=== PATIENT | female | born 1980 | race Caucasian/White ===

== ENCOUNTER 2020-11-09 18:20 | Observation (INO) | payer OTHER, BC, MEDICAID, SELFPAY ==
[2020-11-09] VITALS (11 sets, daily range): BP systolic 127–170; BP diastolic 45–101; PULSE 82–117; RESP 16–20; TEMP 32.8–37.4; O2SAT 100; BMI 40.4
--- NOTE | 2020-11-09 19:03 | XRR_ITS ---
PROCEDURE INFORMATION: Exam: XR Chest Exam date and time: 11/09/2020 7:25 PM Age: 40 years old Clinical indication: Shortness of breath; Chest pain; Type not specified; Patient HX: Cp x 3 days; Additional info: SOB TECHNIQUE: Imaging protocol: XR of the chest Views: Frontal portable upright view of the chest. COMPARISON: No relevant prior studies available. FINDINGS: Lungs: The lungs are clear bilaterally. The pulmonary vasculature is normal. Pleural spaces: No pleural effusion. No pneumothorax. Heart/Mediastinum: A moderate hiatal hernia is present above the level of the diaphragm. The heart is normal in size and contour. Bones/joints: No acute abnormality identified. XR/XR chest 1V portable [id number] IMPRESSION: 1. Hiatal hernia. 2. No acute cardiopulmonary abnormality identified.
--- NOTE | 2020-11-09 19:05 | W.ED.SOB ---
HPI - SOB/Dyspnea General: Chief Complaint: Shortness of Breath/Dyspnea Stated Complaint: SOB, swelling all over Time Seen by Provider: 11/09/20 19:00 Source: patient, family and RN notes reviewed Limitations: no limitations History of Present Illness: HPI Narrative: This patient is a 40-year-old female who presents to the emergency department complaint of acute shortness of breath. Patient also feels like she is fluid overloaded. Patient states her chest is burning when she takes a deep breath. Patient admits to being a smoker but states she only tries to cut down to 3 a day and only has had 1 cigarette this afternoon. Patient does not appear to be acutely sick. 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 We will do medical evaluation treat as needed. MD elicited complaint: shortness of breath Onset (ago): day(s) (5) Severity: moderate Associated symptoms: Deny abdominal pain, chest pain, extremity pain, fever(s), lightheadedness, nausea, palpitations or vomiting Review of Systems General: Reports: 10 or more systems reviewed and unremarkable except in HPI and below Const: Denies: fever(s), chills, body aches or fatigue Eyes: Denies: change in vision or blurry vision ENMT: Denies: throat pain, hoarseness or mouth pain Card: Denies: chest pain, palpitations, irregular heart rhythm, edema, swelling of feet/ankles or lightheadedness Resp: Reports: dyspnea; Denies: productive cough, non-productive cough, wheezing or pain on inspiration GI: Denies: abdominal pain, nausea or vomiting : Denies: flank pain, difficulty voiding, dysuria, urinary frequency, urinary urgency or urinary hesitancy Musc: Denies: neck pain, back pain, extremity pain, extremity swelling, joint pain, joint swelling, joint redness, joint warmth or limited range of motion Skin/Breast: Denies: rash, pruritus, erythema or skin tenderness Neuro: Denies: headache(s), numbness in extremities or weakness in extremities Psych: Denies: anxiety or depression Physical Exam Const: COMMON NORMALS: no acute distress, average body habitus, patient oriented x3, no limitations, healthy appearing, alert and well nourished HENMT: COMMON NORMALS: normocephalic, atraumatic, external ears normal, EAC's normal, TM's normal bilaterally, Normal external nose present and Normal nasal mucous membranes and turbinates present HEAD & SCALP: normocephalic and atraumatic NOSE: Normal external nose present and Normal nasal mucous membranes and turbinates present EXTERNAL EAR: Yes external ears normal EXTERNAL AUDITORY CANAL: EAC's normal TYMPANIC MEMBRANE: TM's normal bilaterally Neck/C-Spine: COMMON NORMALS: full ROM, no lymphadenopathy, supple, no meningeal signs, no JVD, Thyroid normal and No carotid bruits THYROID: Thyroid normal Chest: COMMONS NORMALS: normal inspection of the chest, normal palpation of entire chest wall, normal inspection of the breasts and normal palpation of the breasts Breast/axilla inspection: Yes normal inspection of the breasts BREAST/AXILLA PALPATION: Yes normal palpation of the breasts Resp: COMMON NORMALS: normal respiratory effort, No retractions, No use of accessory muscles, clear to auscultation bilaterally and percussion normal AUSCULTATION: clear to auscultation bilaterally PERCUSSION: percussion normal Cardio: COMMON NORMALS: no JVD, regular rate, regular rhythm, S1 normal heart sound present, S2 normal heart sound present, No gallops present (Cardio), No clicks present (Cardio), No murmurs present (Cardio), No rub (Cardio) and Peripheral pulses 2+ throughout RATE: regular rate RHYTHM: regular rhythm HEART SOUNDS: S1 normal heart sound present and S2 normal heart sound present PERIPHERAL PULSES: Peripheral pulses 2+ throughout GI: COMMON NORMALS: Normal to inspection, nondistended, normoactive bowel sounds present, Soft to palpation, non-tender, No hepatosplenomegaly present, no masses and no bruits PALPATION: Yes Soft to palpation and Yes No hepatosplenomegaly present : COMMON NORMALS: Yes no CVA tenderness, Yes normal external appearance, Yes normal appearance of the vagina, Yes normal appearance of the cervix, Yes normal bimanual exam, Yes No adnexal tenderness and Yes no masses BLADDER/KIDNEY EXAM: Yes no CVA tenderness BIMANUAL EXAM - VAGINA & UTERUS: Yes normal bimanual exam Back/Pelvis: COMMON NORMALS: no CVA tenderness, thoracic and lumbar spine normal to inspection, no thoracic nor lumbar tenderness, thoraco-lumbar ROM normal and straight leg raise negative bilaterally Extremity: COMMON NORMALS: normal to inspection, full ROM, capillary refill normal, no joint enlargement, no clubbing, cyanosis or edema, no calf tenderness and no pedal edema Neuro: COMMON NORMALS: patient oriented x3 SENSORIUM/ORIENTATION: Yes alert MENINGEAL SIGNS: Yes no meningeal signs Course Reevaluation(s): Reevaluation #1: Patient has significant anemia. H&H is 3 and 12. Patient has a long history of anemia she states last time she had it checked her hemoglobin was 8. Patient denies any significant blood loss issues. Patient's MCV is 66. Concerning for possible iron deficiency anemia. Patient shortness of breath has resolved. Patient was typed and screened and will transfuse 2 units of blood. Patient will be admitted to Dr. Morillo he will see patient write additional orders Time: 21:07 Consultations: Consultation #1: I discussed at length with hospitalist. He states understanding transfusion. He will write additional orders. 2 units of blood is pending at this time to be transfused Time: 21:08 Vital Signs: Vital signs: Vital Signs Temperature 99.4 F 11/09/20 18:41 Pulse Rate 117 H 11/09/20 21:01 Respiratory Rate 18 11/09/20 21:01 Blood Pressure 170/45 11/09/20 21:01 Pulse Oximetry 100 11/09/20 21:01 MDM - SOB/Dyspnea MDM Narrative: Medical decision making narrative: Patient has acute anemia most likely iron deficiency anemia. Patient states she has a long history of anemia issues. Patient denies any significant blood loss events. Patient states she believes she is going through early menopause. MCV 66 H&H is 3 and 12. Patient will get transfusion of 2 units that are pending hospitalist will see patient and write additional orders. Differential Diagnosis: Shortness of Breath Differential Diagnosis: Likely acute exacerbation of chronic obstructive airways disease, congestive heart failure, community acquired pneumonia, asthma with exacerbation and pulmonary embolism Medical Records: Attestation: I reviewed the patient's medical records. Lab Data: Attestation: I reviewed the patient's lab results. Labs: Lab Results 11/09/20 11/09/20 11/09/20 Range/Units 19:32 19:32 19:32 WBC 10.6 H (4.0-10.0) 10^3/ uL RBC 1.90 L (4.1-5.3) 10^6/u L Hgb 3.1 L* (11.5-15.3) g/dL Hct 12.6 L* (37.0-47.0) % MCV 66.3 L (81-99) fL MCH 16.3 L (28.0-34.0) pg MCHC 24.6 L (30.0-36.0) g/dL RDW 19.4 H (12.1-15.1) % Plt Count 323 (130-400) 10^3/c mm MPV 9.7 (7.4-10.4) fL Neut % (Auto) 67.6 % Lymph % (Auto) 20.2 % [place] % (Auto) 8.8 % Eos % (Auto) 2.4 % Baso % (Auto) 0.3 % Neut # (Auto) 7.20 (1.8-7.7) 10^3/u L Lymph # (Auto) 2.1 (0.8-4.8) 10^3/u L [place] # (Auto) 0.9 (0.2-0.9) 10^3/u L Eos # (Auto) 0.3 (0.0-0.8) 10^3/u L Baso # (Auto) 0.0 (0.0-0.1) 10^3/u L Nucleated RBC % (a uto) 0.3 % Nucleated RBCs # 0.0 /100WBC PT 12.80 (12.1-14.9) SECO NDS INR 0.94 (0.8-1.2) APTT 24.1 (23.9-36.7) SECO NDS D-Dimer 1.90 H (0-0.59) ug/mIFE U Sodium 137 (136-145) mmol/L Potassium 3.7 (3.5-5.1) mmol/L Chloride 107 (98-107) mmol/L Carbon Dioxide 21 L (22-29) mmol/L Anion Gap 12.7 (5-19) BUN 19 (6-20) mg/dL Creatinine 0.8 (0.5-0.9) mg/dL GFR Calculation 79.0 L (90-130) mL/min Glucose 132 H (65-115) mg/dL Calculated Osmolal ity 288 (285-295) mOsm/k g Calcium 7.9 L (8.5-10.5) mg/dL Total Bilirubin 0.2 (0.15-1.2) mg/dL AST 11 (0-32) U/L ALT 10 (0-33) U/L Alkaline Phosphata se 79 (35-105) IU/L Troponin T Baselin e (0-10) ng/L NT-Pro-B Natriuret Pep 363 H (0-125) pg/mL Total Protein 5.7 L (6.6-8.7) g/dL Albumin 3.8 (3.5-5.2) g/dL Globulin 1.9 (1.3-4.6) g/dL HCG, Qual (Negative) 11/09/20 11/09/20 Range/Units 19:32 20:07 WBC (4.0-10.0) 10^3/ uL RBC (4.1-5.3) 10^6/u L Hgb (11.5-15.3) g/dL Hct (37.0-47.0) % MCV (81-99) fL MCH (28.0-34.0) pg MCHC (30.0-36.0) g/dL RDW (12.1-15.1) % Plt Count (130-400) 10^3/c mm MPV (7.4-10.4) fL Neut % (Auto) % Lymph % (Auto) % [place] % (Auto) % Eos % (Auto) % Baso % (Auto) % Neut # (Auto) (1.8-7.7) 10^3/u L Lymph # (Auto) (0.8-4.8) 10^3/u L [place] # (Auto) (0.2-0.9) 10^3/u L Eos # (Auto) (0.0-0.8) 10^3/u L Baso # (Auto) (0.0-0.1) 10^3/u L Nucleated RBC % (a uto) % Nucleated RBCs # /100WBC PT (12.1-14.9) SECO NDS INR (0.8-1.2) APTT (23.9-36.7) SECO NDS D-Dimer (0-0.59) ug/mIFE U Sodium (136-145) mmol/L Potassium (3.5-5.1) mmol/L Chloride (98-107) mmol/L Carbon Dioxide (22-29) mmol/L Anion Gap (5-19) BUN (6-20) mg/dL Creatinine (0.5-0.9) mg/dL GFR Calculation (90-130) mL/min Glucose (65-115) mg/dL Calculated Osmolal ity (285-295) mOsm/k g Calcium (8.5-10.5) mg/dL Total Bilirubin (0.15-1.2) mg/dL AST (0-32) U/L ALT (0-33) U/L Alkaline Phosphata se (35-105) IU/L Troponin T Baselin e 7 (0-10) ng/L NT-Pro-B Natriuret Pep (0-125) pg/mL Total Protein (6.6-8.7) g/dL Albumin (3.5-5.2) g/dL Globulin (1.3-4.6) g/dL HCG, Qual Negative (Negative) Imaging Data^: CXR: Attestation: I personally reviewed and interpreted this imaging study as follows: My impression: No acute findings EKG Data^: EKG 1: Attestation: I personally reviewed and interpreted this EKG as follows: EKG Interpretation Date: 11/09/20 EKG interpretation time: 18:56 Prior EKG tracings: not available for review Interpretation: Sinus tachycardia heart rate 108 nonspecific T wave changes Discharge Plan Discharge Patient Disposition: Placed in Observation Clinical Impression: Anemia Condition: Stable Prescriptions: No Action Tylenol 325 mg Tablet 325 mg PO QID PRN (Reason: Pain) RF: 0 ciprofloxacin HCl 500 mg tablet 500 mg PO BID RF: 0 pantoprazole 20 mg tablet,delayed release (DR/EC) 20 mg PO DAILY RF: 0 ibuprofen 200 mg Tablet 200 mg PO Q6H PRN (Reason: pain/fever) RF: 0 hydrochlorothiazide 25 mg tablet 25 mg PO DAILY RF: 0 Women's Multivitamin 18 mg iron-400 mcg-500 mg Tablet 1 tab PO DAILY RF: 0 Coding Level of Care Code ED Spray Worker for [employer] Fwd Exam Comprehensive
[2020-11-09 19:52] LABS: INR 0.94 (0.8-1.2); Partial Thromboplastin Time 24.1 SECONDS (23.9-36.7)
[2020-11-09 19:59] LABS: Troponin(5th) Baseline 7 ng/L (0-10)
[2020-11-09 20:06] LABS: Alanine Aminotransferase 10 U/L (0-33); Albumin Level 3.8 g/dL (3.5-5.2); Alkaline Phosphatase 79 IU/L (35-105); Anion Gap 12.7 (5-19); Aspartate Amino Transferase 11 U/L (0-32); Blood Urea Nitrogen 19 mg/dL (6-20); Calcium 7.9 mg/dL (8.5-10.5); Carbon Dioxide 21 mmol/L (22-29); Chloride 107 mmol/L (98-107); Creatinine Clr Calc Pharmacy 132.5333; Globulin 1.9 g/dL (1.3-4.6); Glucose 132 mg/dL (65-115); NT Pro B Type Natriuretic Pept 363 pg/mL (0-125); Osmolality Calculated 288 mOsm/kg (285-295); Potassium 3.7 mmol/L (3.5-5.1); Sodium 137 mmol/L (136-145); Total Bilirubin 0.2 mg/dL (0.15-1.2); Total Protein 5.7 g/dL (6.6-8.7)
[2020-11-09 20:21] LABS: HCG Qualitative Urine. Negative (Negative)
[2020-11-09 20:25] LABS: Basophils % 0.3 %; Eosinophils # 0.3 10^3/uL (0.0-0.8); Eosinophils % 2.4 %; Lymphocytes # 2.1 10^3/uL (0.8-4.8); Lymphocytes % 20.2 %; Mean Corpuscular HGB Conc 24.6 g/dL (30.0-36.0); Mean Corpuscular Hemoglobin 16.3 pg (28.0-34.0); Mean Corpuscular Volume 66.3 fL (81-99); Mean Platelet Volume 9.7 fL (7.4-10.4); Monocytes # 0.9 10^3/uL (0.2-0.9); Monocytes % 8.8 %; Neutrophils % 67.6 %; Nucleated Red Blood Cells % 0.3 %; Platelet Count 323 10^3/cmm (130-400); Red Cell Distribution Width 19.4 % (12.1-15.1); White Blood Count 10.6 10^3/uL (4.0-10.0)
[2020-11-09 20:31] LABS: Hematocrit 12.6 % (37.0-47.0); Hemoglobin 3.1 g/dL (11.5-15.3)
[2020-11-09 21:22] LABS: Charge for UA Resulting for Rev
[2020-11-09 21:24] LABS: Bilirubin Urine Neg (Negative); Blood Urine Neg (Negative); Glucose Urine UA Norm (Normal); Ketones Urine Negative (Negative); Leukocyte Esterase Urine Negative (Negative); Nitrate Urine Negative (Negative); Protein Urine Neg (Negative); Urine Appearance Clear (CLEAR); Urine Color Yellow (Yellow); Urobilinogen Urine Norm (Negative); pH Urine 5 (5-7)
[2020-11-09 21:26] LABS: Amphetamines Screen Urine Negative (Negative); Barbiturates Screen Urine Negative (Negative); Benzodiazepines Screen Urine Negative (Negative); Cocaine Screen Urine Negative (Negative); Opiate Screen Urine Negative (Negative); PCP Screen Urine Negative (Negative); THC Screen Urine Negative (Negative)
[2020-11-09 21:34] LABS: Troponin 5 2HR 6.08 ng/L (0-10)
[2020-11-09 21:35] LABS: Troponin 5 2HR Delta -0.92 ABS# (0-10)
[2020-11-09 21:43] LABS: Ferritin 16 ng/mL (15-150); Iron 10 ug/dL (37-145); Percent Saturation 2.5 % (20-50); Total Iron Binding Capacity 400 mcg/dl; Unsaturated Iron Binding 390 ug/dL (112-347)
--- NOTE | 2020-11-09 21:48 | P.HP_ITS ---
Providers/Chief Complaint Admitting Physician: Kwaku Nielsen MD Chief Complaint: SOB, swelling all over History of Present Illness Tawny Merino is a 40 year old female who has history of iron deficiency chronic anemia presented today with chief complaint of shortness of breath and generalized fatigue. Patient is stating that for last few days she has been experiencing more shortness of breath and fatigue, her shortness of breath has gotten worse to the point that she is not able to take few steps without gasping for air, she also felt weak, she has been taking iron sulfate which she stopped because of change in her taste, she is stating that when she was 17 years old she underwent extensive abdominal surgery however colon resection was not done, she describing that incident hernia repair surgery, she was also told that she has gastritis. She has not noticed any blood in stool, urine or vomiting. No recent tick bite, no previous bone marrow biopsies. CBC reveals severe anemia hemoglobin 3, in the ER she is getting 2 units of PRBC and iron studies, I am starting her B12, folic acid iron supplementation, patient is stating that her age of menarche was 7 and currently she is getting menstrual bleeding for only 2 days PT 12 INR 0.9 APTT 24, normal platelet count, iron panel requested She has high D-dimer not a candidate of anticoagulation I would not pursue CT at this point, she is tender tachycardic because of severe anemia, saturating well on room air Review of Systems Const: Reports: body aches, fatigue and malaise; Denies: fever(s) or chills Eyes: Denies: change in vision ENMT: Denies: throat pain Card: Reports: chest pain and dyspnea on exertion Resp: Reports: dyspnea and non-productive cough GI: Denies: abdominal pain : Denies: flank pain Musc: Denies: neck pain Skin/Breast: Denies: rash Neuro: Denies: headache(s) Psych: Denies: anxiety Endo: Denies: polyuria Dimitri/Lymph: Denies: easy bruising All/Imm: Denies: urticaria Medications/Allergies Home Medications Medication Instructions Recorded Confirmed Last Taken Type acetaminophen [Tylenol] 325 mg PO QID PRN 11/09/20 11/09/20 11/09/20 History ciprofloxacin HCl 500 mg PO BID 11/09/20 11/09/20 11/08/20 History hydrochlorothiazide 25 mg PO DAILY 11/09/20 11/09/20 11/09/20 History ibuprofen 200 mg PO Q6H PRN 11/09/20 11/09/20 11/09/20 History lm-oi-[id number]-FA-Ca carb-vit K 1 tab PO DAILY 11/09/20 11/09/20 11/09/20 History [Women's Multivitamin] pantoprazole 20 mg PO DAILY 11/09/20 11/09/20 11/08/20 History Allergies Allergy/AdvReac Type Severity Reaction Status Date / Time Sulfa (Sulfonamide Allergy ALGY-Anaphy Verified 11/09/20 18:41 Antibiotics) laxis PFSH Acute PFSH: Medical History Gastritis Hypertension Iron deficiency anemia Surgical History History of abdominal surgery Hx of cholecystectomy Tubal ligation status Family History Father Dementia Mother Dementia Social History Smoking and tobacco status: never smoked Alcohol intake: never Substance/Drug Use: never Housing: House Vitals/I&O/Wt Last Vital Signs Temp 99.4 F 11/09/20 18:41 Pulse 117 H 11/09/20 21:01 Resp 18 11/09/20 21:01 BP 170/45 11/09/20 21:01 Pulse Ox 100 11/09/20 21:01 Weight last 48 hrs Weight 90.718 kg Physical Exam Narrative: EXAM NARRATIVE: Very pleasant young female Saturating well on room air No acute distress No chest pain or shortness of breath S1, S2 sinus tachycardia no murmur appreciated Abdomen soft nontender bowel sound present, multiple surgical scars no signs of peritonitis EOMI, PERRLA no neurological deficits Lower extremity no edema gangrene ulcer Pallor complexion No active bleeding No joint swelling or cellulitis Data : 11/09/20 19:32 11/09/20 19:32 A&P Assessment and plan (1) Acute on chronic anemia: Status: Acute (2) Symptomatic anemia: Status: Acute Additional A&P Information Acute on chronic microcytic anemia Symptomatic anemia Iron panel requested I will add B12, IV iron along folic acid and reticulocyte count Bilirubin is 0.2 I do not suspect hemolytic anemia at this point Would recommend outpatient hematology consult Currently getting 2 units PRBC, will request another unit in the morning We will add laxative with iron supplementation No active GI bleed, patient does endorse history of gastritis, will need endoscopy to rule out etiology DVT prophylaxis: SCDs Clear liquid diet Full code Attestations Medical Necessity Statement*: Anticipating discharge in less than 48 hours will need blood transfusion for now, symptomatic anemia Time Spent in Patient Care: (>than 50% of time spent in counselling and/or direct pt care on unit) . 40mins Coding Level of Care Code Acute Livestock Handler for Ovidio Estrada Diagnoses Acute on chronic anemia D64.9 Symptomatic anemia D64.9
[2020-11-09] MEDS: FUROsemide 10 mg/mL SDV 4mL 40 MG IVP (21:49)
[2020-11-09] MEDS: acetaminophen 325 mg Tablet 650 MG PO (21:49)
[2020-11-09] MEDS: diphenhydrAMINE 25 mg Capsule PO (21:49)
[2020-11-09 21:58] LABS: Add Urine Microscopic? NO
[2020-11-09] MEDS: sodium chloride 0.9% 100 mL Bag 50 ML IV (22:43)
[2020-11-10] VITALS (40 sets, daily range): BP systolic 103–157; BP diastolic 65–105; PULSE 80–94; RESP 16–26; TEMP 36.7–37.3; O2SAT 96–100
[2020-11-10 00:41] LABS: Reticulocyte % 3.6 % (0.5-2.0)
[2020-11-10 02:13] LABS: Vitamin B12 660 pg/mL (232-1245)
[2020-11-10] MEDS: pantoprazole 40 mg SDV IVP ×2 (04:12→14:25)
[2020-11-10] MEDS: iron sucrose 200 MG in sodium chloride 0.9% (100 ml) 100 ML 220 MG IV (04:13)
[2020-11-10] MEDS: sodium chloride 0.9% 100 mL Bag 50 ML IV (04:48)
[2020-11-10 05:56] LABS: Alanine Aminotransferase 9 U/L (0-33); Albumin Level 3.3 g/dL (3.5-5.2); Alkaline Phosphatase 76 IU/L (35-105); Anion Gap 13.5 (5-19); Aspartate Amino Transferase 12 U/L (0-32); Blood Urea Nitrogen 14 mg/dL (6-20); Calcium 7.7 mg/dL (8.5-10.5); Carbon Dioxide 22 mmol/L (22-29); Chloride 104 mmol/L (98-107); Creatinine Clr Calc Pharmacy 132.5333; Globulin 2.8 g/dL (1.3-4.6); Glucose 107 mg/dL (65-115); Osmolality Calculated 283 mOsm/kg (285-295); Potassium 3.5 mmol/L (3.5-5.1); Sodium 136 mmol/L (136-145); Total Bilirubin 0.9 mg/dL (0.15-1.2); Total Protein 6.1 g/dL (6.6-8.7)
[2020-11-10 06:55] LABS: Basophils # 0.1 10^3/uL (0.0-0.1); Basophils % 0.7 %; Eosinophils # 0.3 10^3/uL (0.0-0.8); Eosinophils % 3.2 %; Lymphocytes # 1.7 10^3/uL (0.8-4.8); Lymphocytes % 20.1 %; Mean Corpuscular HGB Conc 28.7 g/dL (30.0-36.0); Mean Corpuscular Hemoglobin 21.6 pg (28.0-34.0); Mean Platelet Volume 10.3 fL (7.4-10.4); Monocytes # 0.9 10^3/uL (0.2-0.9); Monocytes % 10.1 %; Neutrophils # 5.54 10^3/uL (1.8-7.7); Neutrophils % 65.5 %; Nucleated Red Blood Cells % 0.2 %; Platelet Count 280 10^3/cmm (130-400); Red Blood Count 2.69 10^6/uL (4.1-5.3); Red Cell Distribution Width 23.5 % (12.1-15.1); White Blood Count 8.5 10^3/uL (4.0-10.0)
[2020-11-10 07:01] LABS: Hematocrit 20.2 % (37.0-47.0); Hemoglobin 5.8 g/dL (11.5-15.3); Mean Corpuscular Volume 75.1 fL (81-99)
[2020-11-10] MEDS: cyanocobalamin 1,000 mcg Tablet 1000 MCG PO (08:07)
[2020-11-10] MEDS: folic acid 1 mg Tablet PO (08:07)
[2020-11-10] MEDS: iron complex forte Capsule 1 EACH PO ×2 (08:07→17:35)
--- NOTE | 2020-11-10 10:04 | P.CONIM_ITS ---
Providers/Reason For Consult Consulting Physican/Specialty*: General Surgery Jabari Kraft MD Reason for Consult*: Anemia, requesting EGD. Attending Physician: Nando Guerra MD History of Present Illness History of Present Illness Tawny Merino is a 40 year old female who says that she has been feeling somewhat lightheaded with some pounding in my head at times over the past month. About a week ago she started getting more short of breath. She finally presented to the hospital and was found to be severely anemic with a hemoglobin around 3. She has been transfused and that continues. The patient denies any obvious history of hematochezia or melena. She says that she has always had stomach troubles in the way of some discomfort. She mentions that she was diagnosed with bleeding ulcers back when she was 17 years of age and this was confirmed by a G scope. She apparently was not on continuing medication for this, however. She says recently she had been taking what sounds to be famotidine once a day and was switched to a proton pump inhibitor when she saw this doctor last week but has not start taking it yet. She does have a history of GERD for which she feels like antacids are an ongoing need. She does take [id number] things including baking soda at times. She denies any evidence of hematochezia or melena, but does admit that she does not always look at her stool very well. She also mentions that she takes some arthritis medicine about once every other day that does contain some ibuprofen in it. Review of Systems General: Reports: 10 or more systems reviewed and unremarkable except in HPI and below Const: Denies: fever(s) Card: Reports: lightheadedness Resp: Reports: dyspnea GI: Reports: abdominal pain (Chronic); Denies: vomiting, hematochezia or melena Neuro: Reports: other ( head pounding ) Meds/Allergies Home Medications and Allergies Home Medications Medication Instructions Recorded Confirmed Last Taken Type acetaminophen [Tylenol] 325 mg PO QID PRN 11/09/20 11/09/20 11/09/20 History ciprofloxacin HCl 500 mg PO BID 11/09/20 11/09/20 11/08/20 History hydrochlorothiazide 25 mg PO DAILY 11/09/20 11/09/20 11/09/20 History ibuprofen 200 mg PO Q6H PRN 11/09/20 11/09/20 11/09/20 History ak-zg-dhai-FA-Ca carb-vit K 1 tab PO DAILY 11/09/20 11/09/20 11/09/20 History [Women's Multivitamin] pantoprazole 20 mg PO DAILY 11/09/20 11/09/20 11/08/20 History Allergies Allergy/AdvReac Type Severity Reaction Status Date / Time Sulfa (Sulfonamide Allergy ALGY-Anaphy Verified 11/09/20 18:41 Antibiotics) laxis Current Medications Current Medications Generic Name Dose Route Start Last Admin Trade Name Freq PRN Reason Stop Dose Admin Cyanocobalamin 1,000 mcg 11/10/20 09:00 11/10/20 08:07 Cyanocobalamin 1,000 Mcg Tablet PO 1,000 mcg DAILY DANIEL Administration Folic Acid 1 mg 11/10/20 09:00 11/10/20 08:07 Folic Acid 1 Mg Tablet PO 1 mg DAILY DANIEL Administration Folic Acid/Iron/Vitamin B12 1 each 11/10/20 08:00 11/10/20 08:07 Iron Complex Forte Capsule PO 1 each BIDWM DANIEL Administration Pantoprazole Sodium 40 mg 11/10/20 02:15 11/10/20 04:12 Pantoprazole 40 Mg Sdv IVP 40 mg Q12H DANIEL Administration Sucralfate 1 gm 11/10/20 08:25 11/10/20 08:36 Sucralfate 1 Gm Tablet PO Not Given AC&BEDTIME DANIEL PFSH Acute PFSH: Medical History Gastritis Hiatal hernia History of gastritis History of peptic ulcer disease Hypertension Iron deficiency anemia NSAID long-term use Surgical History (Updated 11/10/20 @ 12:17 by Jabari Kraft MD) History of abdominal surgery Multiple ventral hernia repairs with mesh Hx of cholecystectomy Tubal ligation status Family History Father Dementia Mother Dementia Social History Smoking and tobacco status: never smoked Alcohol intake: never Substance/Drug Use: never Housing: House Vitals/I&O/Wt Last Vital Signs Temp 99.0 F 11/10/20 09:56 Pulse 88 11/10/20 09:56 Resp 18 11/10/20 09:56 BP 138/79 11/10/20 09:56 Pulse Ox 98 11/10/20 09:56 11/09/20 11/10/20 11/10/20 22:59 06:59 14:59 Intake Total 0 / 460 460 / 460 0 / 0 Balance 0 / 460 460 / 460 0 / 0 Weight last 48 hrs Weight 200 lb Physical Exam Narrative: EXAM NARRATIVE: The patient was examined in her hospital room. She does not appear to be in any distress. The pupils are equal. No neck masses are palpated. Lungs are clear anteriorly. The heart is regular. The abdomen is moderately obese but is soft. She has some mild scattered tenderness which does not always seem reproducible. No obvious masses are palpated. She has multiple laparoscopic scars that are all well-healed. The extremities reveal no edema. Neurologically the patient appears to be grossly intact. A&P Assessment and plan (1) Symptomatic anemia: The patient is being transfused. She has not had any obvious signs of blood loss, but admits that she does not look at her stool very well most of the time. I have discussed an EGD with her in some detail. She had one of these in the past. The risks were gone over. We discussed trying to get this done tomorrow morning and she is agreeable. EGD is scheduled for 11 AM tomorrow morning. Status: Acute (2) History of peptic ulcer disease: She describes bleeding ulcers when she was in her late teens. She recently says that she was taking Pepcid once a day. Status: Acute (3) History of gastritis: Status: Acute (4) Hiatal hernia: Present on the patient's chest x-ray. Status: Acute (5) NSAID long-term use: She has not been taking these daily, but does admit to doing it perhaps once every other day for her arthritis. Status: Acute Consult Attestations Medical Necessity Statement: See admitting service's notation. Coding Level of Care Code Acute Business Analytics Faculty Member for [facility] Fwd Diagnoses Symptomatic anemia D64.9 History of peptic ulcer disease Z87.11 History of gastritis Z87.19 Hiatal hernia K44.9 NSAID long-term use Z79.1
[2020-11-10] MEDS: sucralfate 1 gm Tablet PO ×3 (10:45→21:00)
[2020-11-10] MEDS: acetaminophen 325 mg Tablet 650 MG PO ×3 (10:45→21:03)
[2020-11-10 12:13] LABS: Hematocrit 23.9 % (37.0-47.0); Hemoglobin 6.7 g/dL (11.5-15.3)
--- NOTE | 2020-11-10 13:35 | PM.PN ---
Subjective Subjective: Interval history: Patient was examined this morning, she tells me that she has a history of anemia in the past, she had an EGD and colonoscopy when she was very young, she was found to have a stomach ulcer, she does have an extensive family history of anemia, her 5-year-old daughter has anemia, her mother and her sisters have anemia, her father has a bleeding disorder, she is never been tested, she is from [place], she feels better after the blood she has received, no bloody or black stools Vitals/I&O/Wt Last Vital Signs Temp 98.5 F 11/10/20 11:09 Pulse 83 11/10/20 11:09 Resp 18 11/10/20 11:09 BP 132/85 11/10/20 11:09 Pulse Ox 100 11/10/20 11:09 11/09/20 11/10/20 11/10/20 22:59 06:59 14:59 Intake Total 0 / 0 460 / 460 350 / 350 Output Total 200 / 200 Balance 0 / 0 460 / 460 150 / 150 Weight last 48 hrs Weight 90.718 kg Physical Exam Const: COMMON NORMALS: no acute distress and patient oriented x3 HENMT: COMMON NORMALS: normocephalic HEAD & SCALP: normocephalic Neck/C-Spine: COMMON NORMALS: no JVD Resp: COMMON NORMALS: normal respiratory effort, No retractions, No use of accessory muscles and clear to auscultation bilaterally AUSCULTATION: clear to auscultation bilaterally Cardio: COMMON NORMALS: no JVD, regular rate, regular rhythm, S1 normal heart sound present and S2 normal heart sound present RATE: regular rate RHYTHM: regular rhythm HEART SOUNDS: S1 normal heart sound present and S2 normal heart sound present GI: COMMON NORMALS: Normal to inspection, nondistended, normoactive bowel sounds present, Soft to palpation, non-tender, No hepatosplenomegaly present, no masses and no bruits PALPATION: Yes Soft to palpation and Yes No hepatosplenomegaly present Extremity: COMMON NORMALS: capillary refill normal, no clubbing, cyanosis or edema, no calf tenderness and no pedal edema Neuro: COMMON NORMALS: patient oriented x3 Psych: COMMON NORMALS: mental status grossly normal Data : 11/10/20 12:00 11/10/20 05:32 A&P Assessment and plan (1) Acute on chronic anemia: Status: Acute (2) Symptomatic anemia: Status: Acute Additional A&P Information Acute on chronic microcytic anemia Symptomatic anemia Has evidence of iron deficiency anemia, receiving IV iron Reticulocyte 3, B12 and folate within normal limits Bilirubin is 0.2 I do not suspect hemolytic anemia at this point We will have patient follow-up with hematology oncology as outpatient Status post 3 units PRBC, hemoglobin 6.7, will transfuse one more unit PRBC We will add laxative with iron supplementation Continue Protonix, Carafate I have consulted general surgery for EGD DVT prophylaxis: SCDs Clear liquid diet Full code Attestations Medical Necessity Statement*: She requires hospitalization for symptomatic anemia, iron deficiency anemia Coding Level of Care Code Acute Dental Technician Instructor for g Fwd Diagnoses Acute on chronic anemia D64.9 Symptomatic anemia D64.9
[2020-11-10] MEDS: TRAMadol 50 mg Tablet 25 MG PO (17:35)
[2020-11-10] MEDS: sodium chloride 0.9% (100 ml) 100 ML (17:37)
[2020-11-10 21:45] LABS: Hematocrit 24.2 % (37.0-47.0); Hemoglobin 7.7 g/dL (11.5-15.3)
[2020-11-11] VITALS (8 sets, daily range): BP systolic 127–166; BP diastolic 82–97; PULSE 75–102; RESP 16–18; TEMP 36.6–37.2; O2SAT 96–100
[2020-11-11] MEDS: pantoprazole 40 mg SDV IVP (03:27)
[2020-11-11] MEDS: acetaminophen 325 mg Tablet 650 MG PO ×2 (05:12→13:03)
[2020-11-11 05:46] LABS: Basophils # 0.1 10^3/uL (0.0-0.1); Basophils % 0.8 %; Eosinophils # 0.3 10^3/uL (0.0-0.8); Eosinophils % 3.1 %; Lymphocytes # 1.2 10^3/uL (0.8-4.8); Mean Corpuscular HGB Conc 29.6 g/dL (30.0-36.0); Mean Corpuscular Hemoglobin 23.5 pg (28.0-34.0); Mean Corpuscular Volume 79.2 fL (81-99); Mean Platelet Volume 10.1 fL (7.4-10.4); Monocytes # 0.8 10^3/uL (0.2-0.9); Monocytes % 9.2 %; Neutrophils # 5.88 10^3/uL (1.8-7.7); Neutrophils % 71.2 %; Nucleated Red Blood Cells # 0.1 /100WBC; Nucleated Red Blood Cells % 1.1 %; Platelet Count 240 10^3/cmm (130-400); Red Blood Count 3.41 10^6/uL (4.1-5.3); Red Cell Distribution Width 23.4 % (12.1-15.1); White Blood Count 8.3 10^3/uL (4.0-10.0)
[2020-11-11] MEDS: sucralfate 1 gm Tablet PO (06:13)
[2020-11-11 07:06] LABS: Alanine Aminotransferase 9 U/L (0-33); Albumin Level 3.2 g/dL (3.5-5.2); Alkaline Phosphatase 80 IU/L (35-105); Aspartate Amino Transferase 16 U/L (0-32); Blood Urea Nitrogen 9 mg/dL (6-20); Carbon Dioxide 16 mmol/L (22-29); Chloride 105 mmol/L (98-107); Globulin 2.7 g/dL (1.3-4.6); Glomerular Filtration Rate 110.2 mL/min (90-130); Glucose 90 mg/dL (65-115); Magnesium 2.2 mg/dL (1.7-2.3); Osmolality Calculated 274 mOsm/kg (285-295); Phosphorus 2.7 mg/dL (2.5-4.5); Sodium 133 mmol/L (136-145); Total Bilirubin 0.8 mg/dL (0.15-1.2); Total Protein 5.9 g/dL (6.6-8.7)
--- NOTE | 2020-11-11 08:13 | P.PN_ITS ---
Subjective Subjective: Interval history: The patient has no new complaints this morning. She says she is ready to have her EGD. Vitals/I&O/Wt Last Vital Signs Temp 98.4 F 11/11/20 07:58 Pulse 80 11/11/20 07:58 Resp 16 11/11/20 07:58 BP 133/82 11/11/20 07:58 Pulse Ox 96 11/11/20 07:58 11/10/20 11/11/20 11/11/20 22:59 06:59 14:59 Intake Total 690 / 1040 Output Total 800 / 1250 250 / 1250 Balance -110 / -210 -250 / -210 Weight last 48 hrs Weight 200 lb Physical Exam Narrative: EXAM NARRATIVE: No significant change on abdominal exam. Data : 11/11/20 05:10 11/11/20 05:10 A&P Assessment and plan (1) Symptomatic anemia: The patient has been transfused. EGD planned for this morning. Status: Acute (2) History of peptic ulcer disease: She describes bleeding ulcers when she was in her late teens. She recently says that she was taking Pepcid once a day. Status: Acute (3) History of gastritis: Status: Acute (4) Hiatal hernia: Present on the patient's chest x-ray. Status: Acute (5) NSAID long-term use: She has not been taking these daily, but does admit to doing it perhaps once every other day for her arthritis. Status: Acute Attestations Medical Necessity Statement*: See admitting service's notation. Coding Level of Care Code Acute Dental Detail Representative for [facility] Fwd Diagnoses Symptomatic anemia D64.9 History of peptic ulcer disease Z87.11 History of gastritis Z87.19 Hiatal hernia K44.9 NSAID long-term use Z79.1
--- NOTE | 2020-11-11 09:10 | PC.NURSE ---
Patient to surgery at this time for EGD scope. Patient is A&Ox3. Respirations even and non-labored on room air.
[2020-11-11] MEDS: sodium chloride 0.9% 1,000 ML 30 ML IV (09:50)
[2020-11-11 09:56] LABS: OR HCG Qualitative Urine Negative (Negative)
--- NOTE | 2020-11-11 11:19 | ANES.PREANE2 ---
Pre-Anesthetic Assessment Pre-Anesthetic Assessment: Height/Weight: Height 1.5 m Weight 90.718 kg Temp Pulse Resp BP Pulse Ox 99 F 86 16 128/84 98 11/11/20 09:37 11/11/20 09:37 11/11/20 09:37 11/11/20 09:37 11/11/20 09:37 Preop Diagnosis: GI bleed Proposed Procedure: Operation Date: 11/11/20 10:00 Proposed Procedures p EGD(Not Applicable) - Jabari Kraft MD Familial anesthetic complications: none Was Beta Bernarda taken within 24 hours: N/A Was Clonidine taken within 24 hours: N/A Last Intake: 22:00 Social: Social History: Tobacco and No alcohol Packs per day: 1/2 Pack years: 15+ Exam: Pre-Anes Outpt Exam: alert, oriented x 3, clear to auscultation bilaterally and regular rate & rhythm Airway: Submandibular: WNL Cervical ROM: WNL MP: 2 Dentition: Full Pulmonary: Pulmonary: None reported CV/HEM: CV/HEM: Anemia (5 units PRBC transfused) and HTN : : None reported Hepatic: Hepatic: None reported GI: GI: GERD Metabolic: Metabolic: Morbid obesity Musc/skel: Musc/skel: Lower Back Pain and OA/DJD Neuropsych: Neuropsych: JONES Anesthetic Plan: ASA status: 2 Anesthesia: MAC Risk of > 500 ml blood loss (7ml/kg in children): No Meds/Allergies Current Medications: Current Medications Generic Name Dose Route Start Last Admin Trade Name Freq PRN Reason Stop Dose Admin Acetaminophen 650 mg 11/10/20 10:25 11/11/20 05:12 Acetaminophen 32 5 Mg Tablet PO 650 mg Q4H PRN Administration MILD PAIN OR INCR EASE TEMP Cyanocobalamin 1,000 mcg 11/10/20 09:00 11/10/20 08:07 Cyanocobalamin 1 ,000 Mcg Tablet PO 1,000 mcg DAILY DANIEL Administration Folic Acid 1 mg 11/10/20 09:00 11/10/20 08:07 Folic Acid 1 Mg Tablet PO 1 mg DAILY DANIEL Administration Folic Acid/Iron/Vi tamin B12 1 each 11/10/20 08:00 11/10/20 17:35 Iron Complex For te Capsule PO 1 each BIDWM DANIEL Administration Sodium Chloride 1,000 mls @ 30 ml s/hr 11/11/20 09:45 11/11/20 09:50 Sodium Chloride 0.9% IV 11/12/20 09:44 30 mls/hr .Q24H DANIEL Administration Pantoprazole Sodiu m 40 mg 11/10/20 02:15 11/11/20 03:27 Pantoprazole 40 Mg Sdv IVP 40 mg Q12H DANIEL Administration Sucralfate 1 gm 11/10/20 08:25 11/11/20 06:13 Sucralfate 1 Gm Tablet PO 1 gm AC&BEDTIME DANIEL Administration PFSH Anesthesia PFSH: Medical History Gastritis Hiatal hernia History of gastritis History of peptic ulcer disease Hypertension Iron deficiency anemia NSAID long-term use Surgical History (Updated 11/10/20 @ 12:17 by Jabari Kraft MD) History of abdominal surgery Multiple ventral hernia repairs with mesh Hx of cholecystectomy Tubal ligation status Family History Father Dementia Mother Dementia Social History Smoking and tobacco status: never smoked Alcohol intake: never Substance/Drug Use: never Housing: House Data Anesthesia CBC & Chem 7: 11/11/20 05:10 11/11/20 05:10 Other Labs: Laboratory Results - last 48 hr 11/09/20 11/09/20 11/09/20 19:32 19:32 19:32 WBC 10.6 H RBC 1.90 L Hgb 3.1 L* Hct 12.6 L* MCV 66.3 L MCH 16.3 L MCHC 24.6 L RDW 19.4 H Plt Count 323 MPV 9.7 Neut % (Auto) 67.6 Lymph % (Auto) 20.2 [place] % (Auto) 8.8 Eos % (Auto) 2.4 Baso % (Auto) 0.3 Reticulocyte % (Auto) Neut # (Auto) 7.20 Lymph # (Auto) 2.1 [place] # (Auto) 0.9 Eos # (Auto) 0.3 Baso # (Auto) 0.0 Nucleated RBC % (auto) 0.3 Nucleated RBCs # 0.0 PT 12.80 INR 0.94 APTT 24.1 D-Dimer 1.90 H Sodium 137 Potassium 3.7 Chloride 107 Carbon Dioxide 21 L Anion Gap 12.7 BUN 19 Creatinine 0.8 GFR Calculation 79.0 L Glucose 132 H Calculated Osmolality 288 Calcium 7.9 L Phosphorus Magnesium Iron TIBC % Saturation Unsat Iron Binding Ferritin Total Bilirubin 0.2 AST 11 ALT 10 Alkaline Phosphatase 79 Troponin T Baseline Troponin T 120 Minute Delta Troponin T NT-Pro-B Natriuret Pep 363 H Total Protein 5.7 L Albumin 3.8 Globulin 1.9 Vitamin B12 HCG, Qual Urine Color Urine Appearance Urine pH Ur Specific [place] Urine Protein Urine Glucose (UA) Urine Ketones Urine Blood Urine Nitrate Urine Bilirubin Urine Urobilinogen Ur Leukocyte Esterase Urine RBC Urine WBC Ur Squamous Epith Cells Amorphous Sediment Urine Bacteria Urine HCG, Qual Urine Opiates Screen Ur Barbiturates Screen Ur Phencyclidine Scrn Ur Amphetamines Screen U Benzodiazepines Scrn Urine Cocaine Screen U Marijuana (THC) Screen Misc Test Reference Blood Type Rho(D) Type Antibody Screen Crossmatch 11/09/20 11/09/20 11/09/20 19:32 19:32 19:32 WBC RBC Hgb Hct MCV MCH MCHC RDW Plt Count MPV Neut % (Auto) Lymph % (Auto) [place] % (Auto) Eos % (Auto) Baso % (Auto) Reticulocyte % (Auto) 3.6 H Neut # (Auto) Lymph # (Auto) [place] # (Auto) Eos # (Auto) Baso # (Auto) Nucleated RBC % (auto) Nucleated RBCs # PT INR APTT D-Dimer Sodium Potassium Chloride Carbon Dioxide Anion Gap BUN Creatinine GFR Calculation Glucose Calculated Osmolality Calcium Phosphorus Magnesium Iron 10 L TIBC 400 % Saturation 2.5 L Unsat Iron Binding 390 H Ferritin 16 Total Bilirubin AST ALT Alkaline Phosphatase Troponin T Baseline 7 Troponin T 120 Minute Delta Troponin T NT-Pro-B Natriuret Pep Total Protein Albumin Globulin Vitamin B12 HCG, Qual Urine Color Urine Appearance Urine pH Ur Specific [place] Urine Protein Urine Glucose (UA) Urine Ketones Urine Blood Urine Nitrate Urine Bilirubin Urine Urobilinogen Ur Leukocyte Esterase Urine RBC Urine WBC Ur Squamous Epith Cells Amorphous Sediment Urine Bacteria Urine HCG, Qual Urine Opiates Screen Ur Barbiturates Screen Ur Phencyclidine Scrn Ur Amphetamines Screen U Benzodiazepines Scrn Urine Cocaine Screen U Marijuana (THC) Screen Misc Test Reference Blood Type Rho(D) Type Antibody Screen Crossmatch 11/09/20 11/09/20 11/09/20 19:32 20:07 20:07 WBC RBC Hgb Hct MCV MCH MCHC RDW Plt Count MPV Neut % (Auto) Lymph % (Auto) [place] % (Auto) Eos % (Auto) Baso % (Auto) Reticulocyte % (Auto) Neut # (Auto) Lymph # (Auto) [place] # (Auto) Eos # (Auto) Baso # (Auto) Nucleated RBC % (auto) Nucleated RBCs # PT INR APTT D-Dimer Sodium Potassium Chloride Carbon Dioxide Anion Gap BUN Creatinine GFR Calculation Glucose Calculated Osmolality Calcium Phosphorus Magnesium Iron TIBC % Saturation Unsat Iron Binding Ferritin Total Bilirubin AST ALT Alkaline Phosphatase Troponin T Baseline Troponin T 120 Minute Delta Troponin T NT-Pro-B Natriuret Pep Total Protein Albumin Globulin Vitamin B12 660 HCG, Qual Negative Urine Color Yellow Urine Appearance Clear Urine pH 5 Ur Specific [place] 1.020 Urine Protein Neg Urine Glucose (UA) Norm Urine Ketones Negative Urine Blood Neg Urine Nitrate Negative Urine Bilirubin Neg Urine Urobilinogen Norm Ur Leukocyte Esterase Negative Urine RBC Not Reportable Urine WBC Not Reportable Ur Squamous Epith Cells Not Reportable Amorphous Sediment Not Reportable Urine Bacteria Not Reportable Urine HCG, Qual Urine Opiates Screen Ur Barbiturates Screen Ur Phencyclidine Scrn Ur Amphetamines Screen U Benzodiazepines Scrn Urine Cocaine Screen U Marijuana (THC) Screen Misc Test Reference Blood Type Rho(D) Type Antibody Screen Crossmatch 11/09/20 11/09/20 11/09/20 20:07 20:44 20:45 WBC RBC Hgb Hct MCV MCH MCHC RDW Plt Count MPV Neut % (Auto) Lymph % (Auto) [place] % (Auto) Eos % (Auto) Baso % (Auto) Reticulocyte % (Auto) Neut # (Auto) Lymph # (Auto) [place] # (Auto) Eos # (Auto) Baso # (Auto) Nucleated RBC % (auto) Nucleated RBCs # PT INR APTT D-Dimer Sodium Potassium Chloride Carbon Dioxide Anion Gap BUN Creatinine GFR Calculation Glucose Calculated Osmolality Calcium Phosphorus Magnesium Iron TIBC % Saturation Unsat Iron Binding Ferritin Total Bilirubin AST ALT Alkaline Phosphatase Troponin T Baseline Troponin T 120 Minute 6.08 Delta Troponin T -0.92 L NT-Pro-B Natriuret Pep Total Protein Albumin Globulin Vitamin B12 HCG, Qual Urine Color Urine Appearance Urine pH Ur Specific [place] Urine Protein Urine Glucose (UA) Urine Ketones Urine Blood Urine Nitrate Urine Bilirubin Urine Urobilinogen Ur Leukocyte Esterase Urine RBC Urine WBC Ur Squamous Epith Cells Amorphous Sediment Urine Bacteria Urine HCG, Qual Urine Opiates Screen Negative Ur Barbiturates Screen Negative Ur Phencyclidine Scrn Negative Ur Amphetamines Screen Negative U Benzodiazepines Scrn Negative Urine Cocaine Screen Negative U Marijuana (THC) Screen Negative Misc Test Reference Blood Type O Positive Rho(D) Type Positive / 4+ Antibody Screen Negative Crossmatch See Detail 11/10/20 11/10/20 11/10/20 05:32 05:32 12:00 WBC 8.5 RBC 2.69 L Hgb 5.8 L* D 6.7 L Hct 20.2 L* D 23.9 L MCV 75.1 L D MCH 21.6 L D MCHC 28.7 L D RDW 23.5 H Plt Count 280 MPV 10.3 Neut % (Auto) 65.5 Lymph % (Auto) 20.1 [place] % (Auto) 10.1 Eos % (Auto) 3.2 Baso % (Auto) 0.7 Reticulocyte % (Auto) Neut # (Auto) 5.54 Lymph # (Auto) 1.7 [place] # (Auto) 0.9 Eos # (Auto) 0.3 Baso # (Auto) 0.1 Nucleated RBC % (auto) 0.2 Nucleated RBCs # 0.0 PT INR APTT D-Dimer Sodium 136 Potassium 3.5 Chloride 104 Carbon Dioxide 22 Anion Gap 13.5 BUN 14 Creatinine 0.8 GFR Calculation 79.0 L Glucose 107 Calculated Osmolality 283 L Calcium 7.7 L Phosphorus Magnesium Iron TIBC % Saturation Unsat Iron Binding Ferritin Total Bilirubin 0.9 AST 12 ALT 9 Alkaline Phosphatase 76 Troponin T Baseline Troponin T 120 Minute Delta Troponin T NT-Pro-B Natriuret Pep Total Protein 6.1 L Albumin 3.3 L Globulin 2.8 Vitamin B12 HCG, Qual Urine Color Urine Appearance Urine pH Ur Specific [place] Urine Protein Urine Glucose (UA) Urine Ketones Urine Blood Urine Nitrate Urine Bilirubin Urine Urobilinogen Ur Leukocyte Esterase Urine RBC Urine WBC Ur Squamous Epith Cells Amorphous Sediment Urine Bacteria Urine HCG, Qual Urine Opiates Screen Ur Barbiturates Screen Ur Phencyclidine Scrn Ur Amphetamines Screen U Benzodiazepines Scrn Urine Cocaine Screen U Marijuana (THC) Screen Misc Test Reference Blood Type Rho(D) Type Antibody Screen Crossmatch 11/10/20 11/10/20 11/11/20 12:00 21:08 05:10 WBC 8.3 RBC 3.41 L Hgb 7.7 L 8.0 L Hct 24.2 L 27.0 L MCV 79.2 L D MCH 23.5 L MCHC 29.6 L RDW 23.4 H Plt Count 240 MPV 10.1 Neut % (Auto) 71.2 Lymph % (Auto) 14.0 [place] % (Auto) 9.2 Eos % (Auto) 3.1 Baso % (Auto) 0.8 Reticulocyte % (Auto) Neut # (Auto) 5.88 Lymph # (Auto) 1.2 [place] # (Auto) 0.8 Eos # (Auto) 0.3 Baso # (Auto) 0.1 Nucleated RBC % (auto) 1.1 Nucleated RBCs # 0.1 PT INR APTT D-Dimer Sodium Potassium Chloride Carbon Dioxide Anion Gap BUN Creatinine GFR Calculation Glucose Calculated Osmolality Calcium Phosphorus Magnesium Iron TIBC % Saturation Unsat Iron Binding Ferritin Total Bilirubin AST ALT Alkaline Phosphatase Troponin T Baseline Troponin T 120 Minute Delta Troponin T NT-Pro-B Natriuret Pep Total Protein Albumin Globulin Vitamin B12 HCG, Qual Urine Color Urine Appearance Urine pH Ur Specific [place] Urine Protein Urine Glucose (UA) Urine Ketones Urine Blood Urine Nitrate Urine Bilirubin Urine Urobilinogen Ur Leukocyte Esterase Urine RBC Urine WBC Ur Squamous Epith Cells Amorphous Sediment Urine Bacteria Urine HCG, Qual Urine Opiates Screen Ur Barbiturates Screen Ur Phencyclidine Scrn Ur Amphetamines Screen U Benzodiazepines Scrn Urine Cocaine Screen U Marijuana (THC) Screen Misc Test Reference Cancelled Blood Type Rho(D) Type Antibody Screen Crossmatch 11/11/20 11/11/20 05:10 09:46 WBC RBC Hgb Hct MCV MCH MCHC RDW Plt Count MPV Neut % (Auto) Lymph % (Auto) [place] % (Auto) Eos % (Auto) Baso % (Auto) Reticulocyte % (Auto) Neut # (Auto) Lymph # (Auto) [place] # (Auto) Eos # (Auto) Baso # (Auto) Nucleated RBC % (auto) Nucleated RBCs # PT INR APTT D-Dimer Sodium 133 L Potassium 4.0 Chloride 105 Carbon Dioxide 16 L Anion Gap 16.0 BUN 9 Creatinine 0.6 GFR Calculation 110.2 Glucose 90 Calculated Osmolality 274 L Calcium 8.0 L Phosphorus 2.7 Magnesium 2.2 Iron TIBC % Saturation Unsat Iron Binding Ferritin Total Bilirubin 0.8 AST 16 ALT 9 Alkaline Phosphatase 80 Troponin T Baseline Troponin T 120 Minute Delta Troponin T NT-Pro-B Natriuret Pep Total Protein 5.9 L Albumin 3.2 L Globulin 2.7 Vitamin B12 HCG, Qual Urine Color Urine Appearance Urine pH Ur Specific [place] Urine Protein Urine Glucose (UA) Urine Ketones Urine Blood Urine Nitrate Urine Bilirubin Urine Urobilinogen Ur Leukocyte Esterase Urine RBC Urine WBC Ur Squamous Epith Cells Amorphous Sediment Urine Bacteria Urine HCG, Qual Negative Urine Opiates Screen Ur Barbiturates Screen Ur Phencyclidine Scrn Ur Amphetamines Screen U Benzodiazepines Scrn Urine Cocaine Screen U Marijuana (THC) Screen Misc Test Reference Blood Type Rho(D) Type Antibody Screen Crossmatch Cardiac Studies: No Data to Display
--- NOTE | 2020-11-11 11:39 | ANE.PACU2 ---
Inpatient post-anesthesia follow up: Airway intact: Yes Vital signs: Temperature 99 F Pulse Rate [Monito r] 109 Pulse Rate 86 Respiratory Rate 16 Blood Pressure [Le ft Arm] 131/85 Blood Pressure 128/84 Pulse Oximetry 98 Oxygen Delivery Me thod [ Room Air Current Rate & Del feder[place]] Oxygen Delivery Me thod Room Air Oxygen Flow Rate Fraction of Inspir ed Oxygen Hydration adequate: Yes Nausea and vomiting: No Pain level: 1 Mental status: Baseline
--- NOTE | 2020-11-11 12:12 | PC.NURSE ---
patient returned from GI lab at this time.
--- NOTE | 2020-11-11 12:39 | P.DS_ITS ---
Discharge Providers Date of Admission: 11/09/20 21:35 Date of Discharge: November 11, 2020 Attending Provider at Admission: Kwaku Nielsen MD Attending Provider at Discharge: Nando Guerra MD Diagnoses at Discharge Discharge Diagnosis (1) Symptomatic anemia: Status: Acute (2) History of peptic ulcer disease: Status: Acute (3) History of gastritis: Status: Acute (4) Hiatal hernia: Status: Acute (5) NSAID long-term use: Status: Acute Reason for Visit Reason for Visit: SOB, swelling all over Hospital Course Hospital Course This is a 40-year-old female with a past medical history of iron deficiency anemia, family history of anemia of undetermined etiology, hypertension, who presents to [facility] due to complaints of fatigue and weakness Patient was admitted to [facility] for acute anemia, hemoglobin of 3, received a total of 4 units PRBC, labs showed iron deficiency anemia, received IV iron, general surgery was consulted for an EGD, which showed superficial gastric erosions and a hiatal hernia, no bloody or black stools reported. On discharge patient's hemoglobin is 8, hemodynamically stable, clinically feeling better, discharged on Protonix 40 twice daily, instructions to avoid blood thinners/NSAIDs, follow up with primary care provider in 1 week for recheck CBC. In addition I have discharged her on 3 more doses of IV Venofer here to be received as outpatient. Patient does report a significant family history of anemia, her daughters anemia, her sister, her mother have a history of anemia, however she is unsure of the etiology, No history of genetic testing. I will have patient follow-up with Dr. Strickland in 2 weeks for testing for anemia. Physical Exam Const: COMMON NORMALS: no acute distress and patient oriented x3 HENMT: COMMON NORMALS: normocephalic HEAD & SCALP: normocephalic Neck/C-Spine: COMMON NORMALS: no JVD Resp: COMMON NORMALS: normal respiratory effort, No retractions, No use of accessory muscles and clear to auscultation bilaterally AUSCULTATION: clear to auscultation bilaterally Cardio: COMMON NORMALS: no JVD, regular rate, regular rhythm, S1 normal heart sound present and S2 normal heart sound present RATE: regular rate RHYTHM: regular rhythm HEART SOUNDS: S1 normal heart sound present and S2 normal heart sound present GI: COMMON NORMALS: Normal to inspection, nondistended, normoactive bowel sounds present, Soft to palpation, non-tender, No hepatosplenomegaly present, no masses and no bruits PALPATION: Yes Soft to palpation and Yes No hepatosplenomegaly present Extremity: COMMON NORMALS: capillary refill normal, no clubbing, cyanosis or edema, no calf tenderness and no pedal edema Neuro: COMMON NORMALS: patient oriented x3 Psych: COMMON NORMALS: mental status grossly normal Discharge Data Data Completed and Pending: Completed Studies During Hospitalization Category Date Time Status XR chest 1V leona ble [id number] Stat Exams 11/09/20 19:03 Completed Pending at discharge Category Date Time Status Complete Blood Co unt w/Auto AM LABS Lab 11/12/20 04:00 Ordered Complete Blood Co unt w/Auto AM LABS Lab 11/13/20 04:00 Ordered Comprehensive Met abolic Panel AM LA BS Lab 11/12/20 04:00 Ordered Comprehensive Met abolic Panel AM LA BS Lab 11/13/20 04:00 Ordered Immunochemical Fe vivek OCB Routine Lab 11/10/20 01:03 Uncollected Leukocyte Reduced RBC Routine Lab 11/09/20 20:44 Results Magnesium AM LABS Lab 11/12/20 04:00 Ordered Magnesium AM LABS Lab 11/13/20 04:00 Ordered Miscellaneous Barbara t Routine Lab 11/10/20 12:00 Received Phosphorus AM LAB S Lab 11/12/20 04:00 Ordered Phosphorus AM LAB S Lab 11/13/20 04:00 Ordered Type and Screen S tat Lab 11/09/20 20:44 Results Pathology: Surgic al [PTH] Routine Pth 11/11/20 11:35 Ordered Labs from last 24 hours 11/11/20 11/11/20 11/11/20 09:46 05:10 05:10 WBC 8.3 RBC 3.41 L Hgb 8.0 L Hct 27.0 L MCV 79.2 L D MCH 23.5 L MCHC 29.6 L RDW 23.4 H Plt Count 240 MPV 10.1 Neut % (Auto) 71.2 Lymph % (Auto) 14.0 [place] % (Auto) 9.2 Eos % (Auto) 3.1 Baso % (Auto) 0.8 Neut # (Auto) 5.88 Lymph # (Auto) 1.2 [place] # (Auto) 0.8 Eos # (Auto) 0.3 Baso # (Auto) 0.1 Nucleated RBC % (a uto) 1.1 Nucleated RBCs # 0.1 Sodium 133 L Potassium 4.0 Chloride 105 Carbon Dioxide 16 L Anion Gap 16.0 BUN 9 Creatinine 0.6 GFR Calculation 110.2 Glucose 90 Calculated Osmolal ity 274 L Calcium 8.0 L Phosphorus 2.7 Magnesium 2.2 Total Bilirubin 0.8 AST 16 ALT 9 Alkaline Phosphata se 80 Total Protein 5.9 L Albumin 3.2 L Globulin 2.7 Urine HCG, Qual Negative Misc Test Referenc e Blood Type Rho(D) Type Antibody Screen Crossmatch 11/10/20 11/10/20 11/09/20 21:08 12:00 20:44 WBC RBC Hgb 7.7 L Hct 24.2 L MCV MCH MCHC RDW Plt Count MPV Neut % (Auto) Lymph % (Auto) [place] % (Auto) Eos % (Auto) Baso % (Auto) Neut # (Auto) Lymph # (Auto) [place] # (Auto) Eos # (Auto) Baso # (Auto) Nucleated RBC % (a uto) Nucleated RBCs # Sodium Potassium Chloride Carbon Dioxide Anion Gap BUN Creatinine GFR Calculation Glucose Calculated Osmolal ity Calcium Phosphorus Magnesium Total Bilirubin AST ALT Alkaline Phosphata se Total Protein Albumin Globulin Urine HCG, Qual Misc Test Referenc e Cancelled Blood Type O Positive Rho(D) Type Positive / 4+ Antibody Screen Negative Crossmatch See Detail Vitals: Last Vital Signs Temp 98.2 F 11/11/20 11:36 Pulse 82 11/11/20 11:50 Resp 18 11/11/20 11:50 BP 137/97 11/11/20 11:50 Pulse Ox 97 11/11/20 11:50 Discharge Plan Discharge Patient Disposition: Home Condition: Stable Prescriptions: New Venofer 200 mg iron/10 mL solution 200 mg IV DAILY 3 Days Qty: 20 RF: 0 folic acid 1 mg Tablet 1 mg PO DAILY 30 Days Qty: 30 RF: 0 cyanocobalamin (vitamin B-12) [Vitamin B-12] 1,000 mcg Tablet 1,000 mcg PO DAILY 30 Days Qty: 30 RF: 0 pantoprazole [Protonix] 40 mg tablet,delayed release (DR/EC) 40 mg PO BID 30 Days Qty: 60 RF: 0 Continued Tylenol 325 mg Tablet 325 mg PO QID PRN (Reason: Pain) RF: 0 hydrochlorothiazide 25 mg tablet 25 mg PO DAILY RF: 0 Women's Multivitamin 18 mg iron-400 mcg-500 mg Tablet 1 tab PO DAILY RF: 0 Discontinued ciprofloxacin HCl 500 mg tablet 500 mg PO BID RF: 0 pantoprazole 20 mg tablet,delayed release (DR/EC) 20 mg PO DAILY RF: 0 ibuprofen 200 mg Tablet 200 mg PO Q6H PRN (Reason: pain/fever) RF: 0 Discharge Orders: Discharge Order (Routine); Ordered 11/11/20 Ordered By: Nando Guerra Other Ambulatory Orders: Complete Blood Count w/Auto (Routine) Timeframe: 1 Week Location: Determined by Patient Ordered By: Nando Guerra Referrals: Loy Strickland MD [Hospitalist] - 2 weeks (fe and hereditary anemia) Discharge Diet: Regular and Cardiac Discharge Activity: Resume usual activity Patient Instructions: GI Discharge Instructions Activity Restrictions/Additional Instructions: -Please avoid NSAIDs or blood thinners -Continue Protonix 40 twice daily -If you have recurrent lightheadedness, dizziness, bloody or black stools go to the emergency room -Iron infusions 3 more doses -Follow-up with Dr. Strickland in 2 weeks Discharge Attestations Time Spent in Discharge Care*: greater than 30 min Quality Metrics Clinical Quality Measures During this hospital stay, did patient experience: None Coding Level of Care Code Acute [facility] note Diagnoses Symptomatic anemia D64.9 History of peptic ulcer disease Z87.11 History of gastritis Z87.19 Hiatal hernia K44.9 NSAID long-term use Z79.1
[2020-11-11] MEDS: iron sucrose 200 MG in sodium chloride 0.9% (100 ml) 100 ML 220 MG IV (13:01)
--- NOTE | 2020-11-11 16:00 | PC.NURSE ---
Reviewed patient discharge with patient and at this time. Patient verbalized understanding of discharge instructions and the need to follow up with 3 more iron infusions. IV's removed intact. Patient tolerated well. Patient is A&Ox3. Respirations even and non-labored on room air. Patient ambulated to her private car without difficulty.
== END 2020-11-11 16:00 | disposition home or self-care (01) ==
LOC: ER 21:10 → ER IP 22:00 → MEDSURG 11-10 09:30
PROVIDERS: Anesthesiology; Internal Medicine; Surgery; Admitting Provider Internal Medicine; Emergency Provider Emergency Medicine; Visit Provider Family Medicine
PROC: 0DJ08ZZ Inspection of Upper Intestinal Tract, Via Natural or Artificial Opening Endoscopic (ICD-10-PCS; CPT 43235; principal; 2020-11-11 10:00)
DX: D64.9 Anemia, unspecified (principal); Z87.11 Personal history of peptic ulcer disease; Z87.19 Personal history of other diseases of the digestive system; K44.9 Diaphragmatic hernia without obstruction or gangrene; Z79.1 Long term (current) use of non-steroidal anti-inflammatories (NSAID); F17.210 Nicotine dependence, cigarettes, uncomplicated; E66.01 Morbid (severe) obesity due to excess calories; Z68.41 Body mass index [BMI] 40.0-44.9, adult; M19.90 Unspecified osteoarthritis, unspecified site
CPT/HCPCS: 12345; 36415; 36430; 43239; 71045; 80053; 80306; 81001; 81003; 81025; 82607; 82728; 82955; 83540; 83550; 83735; 83880; 84100; 84484; 84703; 85014; 85018; 85025; 85045; 85378; 85610; 85730; 86850; 86900; 86920; 88305; 96361; 96365; 96367; 96375; 99285; C9113; G0378; J1756; J1940; J7030; P9016

== ENCOUNTER 2020-11-16 09:25 | Outpatient (CLI) | payer OTHER, BC, MEDICAID, SELFPAY ==
[2020-11-16 11:03] LABS: Basophils # 0.1 10^3/uL (0.0-0.1); Eosinophils # 0.4 10^3/uL (0.0-0.8); Eosinophils % 4.7 %; Hematocrit 31.9 % (37.0-47.0); Hemoglobin 9.1 g/dL (11.5-15.3); Lymphocytes # 1.5 10^3/uL (0.8-4.8); Lymphocytes % 17.8 %; Mean Corpuscular HGB Conc 28.5 g/dL (30.0-36.0); Mean Corpuscular Hemoglobin 23.6 pg (28.0-34.0); Mean Corpuscular Volume 82.9 fL (81-99); Mean Platelet Volume 9.8 fL (7.4-10.4); Monocytes # 0.8 10^3/uL (0.2-0.9); Monocytes % 9.2 %; Neutrophils # 5.53 10^3/uL (1.8-7.7); Neutrophils % 65.9 %; Nucleated Red Blood Cells % 0 %; Platelet Count 220 10^3/cmm (130-400); Red Blood Count 3.85 10^6/uL (4.1-5.3); White Blood Count 8.4 10^3/uL (4.0-10.0)
[2020-11-16 11:23] LABS: Alanine Aminotransferase 21 U/L (0-33); Albumin Level 3.7 g/dL (3.5-5.2); Alkaline Phosphatase 70 IU/L (35-105); Anion Gap 12.4 (5-19); Aspartate Amino Transferase 24 U/L (0-32); Blood Urea Nitrogen 26 mg/dL (6-20); Calcium 8.9 mg/dL (8.5-10.5); Carbon Dioxide 27 mmol/L (22-29); Chloride 103 mmol/L (98-107); Ferritin 102 ng/mL (15-150); Globulin 2.4 g/dL (1.3-4.6); Glucose 94 mg/dL (65-115); Iron 31 ug/dL (37-145); Osmolality Calculated 291 mOsm/kg (285-295); Percent Saturation 8.5 % (20-50); Potassium 4.4 mmol/L (3.5-5.1); Sodium 138 mmol/L (136-145); Total Bilirubin 0.4 mg/dL (0.15-1.2); Total Iron Binding Capacity 362 mcg/dl; Total Protein 6.1 g/dL (6.6-8.7); Unsaturated Iron Binding 331 ug/dL (112-347)
[2020-11-16 12:00] LABS: Add RBC Morph Yes; Slide Review Slide Review Perform
[2020-11-16 12:03] LABS: Anisocytosis 3+; Hypochromasia 2+; Macrocytosis 1+; Microcytosis 1+; Poikilocytosis 1+; RBC Morph Comp Yes
[2020-11-16 12:04] LABS: LAB Peripheral Smear Sent for Review
--- NOTE | 2020-11-16 17:51 | ONC CON_ITS ---
Dr. Strickland New Patient Note Patient: Tawny Merino Unit #: [id number]: 1980 Dicatated By: Loy Strickland M.D.Date of Visit: Nov 16, 2020 Onc MED New Patient/Consult Referring Physician: Nando Guerra Chief Complaint: Anemia. History of Present Illness: This is a 40-year-old woman with severe anemia, at least some component of which is due to iron deficiency. She has a history of chronic anemia. She had previously not been able to corrected with oral iron, in part due to the fact that she has tolerated very poorly and has not been able to take it on a regular basis. On 11/09/2020 she was admitted to the hospital after presenting to the emergency room with severe weakness, shortness of breath, and lightheadedness. Her hemoglobin was only 3.1 g with hematocrit 12.6%. The red cell indices were markedly hypochromic/microcytic with MCV 66 and MCH 16. The serum iron was 10 mcg/dL with transferrin saturation 2.5% and the ferritin was low at 16 ng/mL, consistent with iron deficiency. Her B12 level was normal at 660 pg/mL. She was transfused a total of 4 units PRBC, and she also received 3 infusions of Venofer. She had not been aware of obvious GI blood loss, but she had a known history of peptic ulcer disease and she was having GERD symptoms. Her EGD on 11/12/2020 showed evidence of hiatal hernia with gastritis and associated gastric erosions. Gastric biopsy was negative for gastropathy and negative for H. pylori. She was discharged home on pantoprazole 40 mg daily. She is seen now for further management of the anemia. She is feeling better generally, though her energy is still so-so. ECOG score is 1. She has good appetite. She has had a recent weight gain of 30 pounds. She does not have fever, night sweats, or hot flashes. She has been having pain behind the right ear. She has a little bit of allergy related sinus drainage. She says her breathing is okay now. She does have some cough productive of clear or yellow sputum. She does not complain of chest pain. She was recently having nausea, but she attributed that to the iron infusion. She has chronic constipation. She thinks she did have a prior colonoscopy somewhere around 2004. She was retaining fluid, but her bladder function has improved after starting hydrochlorothiazide. She has joint pain, mainly in the elbows and knees. She was having throbbing headache, but that is completely gone now. She still sometimes has lightheadedness. She has no numbness/paresthesia or other focal neurologic symptoms. Past Medical History: Her medical history includes anemia, hiatal hernia/GERD, hypertension, history of nephrolithiasis and history of peptic ulcer disease. Past Surgical History: Her surgical/procedural history includes EGD in 2020, hernia repair in 2018, cholecystectomy in 2015, section and tubal ligation in 2014, hernia repair in 2012, EGD in 1997, and placement of ear tubes in 1983. Medications: Acetaminophen 1 (325 mg) Tablet Oral four times a day, Cyanocobalamin 1 (1000 mcg) Capsule Oral daily, Folic Acid 1 (1 mg) Tablet Oral daily, hydroCHLOROthiazide 1 (25 mg) Tablet Oral daily, Multivitamin Women 1 Tablet Oral daily, Pantoprazole Sodium 1 (40 mg) Tablet, enteric coated Oral b.i.d., Venofer (200 mg/mL) Intravenous Take as Directed Allergies: Sulfa Antibiotics Social History: Ms. Merino is . She has a history of smoking for 15 years, previously up to 1 pack of cigarettes daily. She has cut down, now to 3 cigarettes/day, and she is planning to quit. She does not drink alcohol. Family History: Both parents are living, father at age 73 and mother at age 72. Both have anemia and diabetes. She indicates that her brother and 2 sisters also have anemia. Her maternal grandfather with leukemia. There is history of cancer affecting 2 maternal aunts and 3 great aunts on her mother's side, including 2 with breast cancer and 3 with uterine cancer. Review Of Symptoms: Constitutional - Her energy is just so-so, but significantly improved. She has good appetite. She has had a recent weight gain of 30 pounds. She does not have fever, night sweats, or hot flashes. ECOG score is 1, Eyes - No change in vision, ENMT - No hearing loss, but she does report having tinnitus. She has pain in the area behind her right ear. She has had a little bit of allergy related sinus drainage. No mouth sores. No sore throat or difficulty swallowing, Hematologic/Lymphatic - She has easy bruising, Respiratory - She was short of breath, but her breathing is better now. She does report having cough productive of clear or yellow sputum. No pleuritic pain or hemoptysis, Cardiovascular - No angina pain. No palpitations, Gastrointestinal - She was having nausea, but she thinks that was from the iron infusion. She has been having acid reflux symptoms. She has chronic constipation. She has not been aware of any blood in the stool or black stools, Genitourinary (F) - She was retaining fluids, but bladder function has improved with the hydrochlorothiazide. She does have urinary frequency and nocturia. No urinary frequency. No urgency or incontinence. She has a history of kidney stones. Her menstrual periods are regular but at this point they are light and last only 2 days, Musculoskeletal - She has joint pain, mainly in the elbows and knees, Integumentary - She has multiple allergies and her skin is very sensitive, Neurologic - She was having throbbing headache, but that is completely gone now. She sometimes has dizziness. No numbness or tingling. No other focal neurologic symptoms, Psychiatric - No anxiety or depression. She has not been sleeping very well. Vital Signs: Performed on Nov 16, 2020 10:58: 0, 7, 41.32 (HIGH), 1.86 sq.m, 59 in, 98 %, 98 /min, 18 /min, 150/90 mm(hg) (HIGH), 97.6 F (LOW), and 204.6 lbs (HIGH). Physical Examination: Constitutional - She appears to be in good general health, Eyes - Sclerae nonicteric. Conjunctivae clear, ENMT - No lesions noted in the oral cavity. TMs are noninflamed. There is tenderness in the area of the right mastoid process, Neck - No mass or thyromegaly, Hematologic/Lymphatic - No cervical, clavicular, or axillary adenopathy, Respiratory - Lungs are clear with good air movement bilaterally, Cardiovascular - Heart rhythm is regular. There is no murmur, gallop, or rub noted, Abdomen - Soft and non-tender. Liver and spleen are not enlarged. There is no abdominal mass or ascites noted and there is no inguinal adenopathy, Back/Spine - No spine or CVA tenderness noted, Extremities - No edema. Dorsalis pedis pulses are palpable bilaterally, Integumentary - No rashes. No suspicious skin lesions noted, Neurologic - No focal neurologic deficits noted. Problem List: 1. Acute on chronic anemia, with at least some component due to iron deficiency. 2. Hiatal hernia/GERD and prior history of peptic ulcer disease. 3. Hypertension. 4. History of nephrolithiasis. Problems Addressed with this Encounter and Plan: 1. Patient with acute on chronic anemia. At least some component of the anemia is due to iron deficiency. At this point other contributing causes are not excluded. The cause is likely a combination of GI blood loss and inadequate oral iron absorption. She has been intolerant of oral iron supplements. At this point she remains moderately anemic with low transferrin saturation at 8%. As she has previously not been able to correct this with oral iron, she will now be given further parenteral iron replacement with 2 infusions of Feraheme. She will be scheduled for 1-month interval follow-up and at that point she will have further evaluation for anemia as indicated. 2. She has hiatal hernia/GERD. She is still having symptoms taking pantoprazole 40 mg daily. At least on a temporary basis, I will have her increase the pantoprazole to 40 mg twice daily. 3. She has pain behind the right ear with tenderness over the mastoid process, consistent with mastoiditis. She will be given antibiotic coverage with Augmentin. Signed By: Loy Strickland M.D. <<Signature on File>>
== END 2020-11-16 09:26 | disposition home or self-care (01) ==
PROVIDERS: Visit Provider Internal Medicine Medical Oncology
DX: D50.8 Other iron deficiency anemias (principal); H92.01 Otalgia, right ear; K44.9 Diaphragmatic hernia without obstruction or gangrene; K21.9 Gastro-esophageal reflux disease without esophagitis; Z79.899 Other long term (current) drug therapy
CPT/HCPCS: 80053; 82728; 83540; 83550; 85025; 99205

== ENCOUNTER 2020-12-07 08:36 | Outpatient (CLI) | payer OTHER, BC, MEDICAID, SELFPAY ==
[2020-12-07] MEDS: acetaminophen 325 mg Tablet 650 MG PO (09:25)
[2020-12-07] MEDS: sodium chloride 0.9% 500 ML 30 ML IV (09:25)
[2020-12-07] MEDS: diphenhydrAMINE 50 mg/mL SDV 1mL 25 MG IVP (09:30)
[2020-12-07] MEDS: iron dextran 25 MG in SYRINGE 1 EACH 30 MG IVP (09:49)
== END 2020-12-07 08:37 | disposition home or self-care (01) ==
LOC: ONCMED 08:39
PROVIDERS: Visit Provider Internal Medicine Medical Oncology
DX: D50.9 Iron deficiency anemia, unspecified (principal); Z79.899 Other long term (current) drug therapy
CPT/HCPCS: 96365; 96366; 96367; 96375; J1100; J1200; J1750; J7030; J7040

== ENCOUNTER 2021-01-28 08:01 | Outpatient (CLI) | payer OTHER, BC, MEDICAID, SELFPAY ==
[2021-01-28 08:31] LABS: Basophils # 0.1 10^3/uL (0.0-0.1); Basophils % 0.8 %; Eosinophils # 0.3 10^3/uL (0.0-0.8); Eosinophils % 4.2 %; Hematocrit 34.8 % (37.0-47.0); Hemoglobin 10.1 g/dL (11.5-15.3); Lymphocytes # 1.3 10^3/uL (0.8-4.8); Lymphocytes % 20.3 %; Mean Corpuscular Hemoglobin 22.5 pg (28.0-34.0); Mean Corpuscular Volume 77.5 fL (81-99); Mean Platelet Volume 10.3 fL (7.4-10.4); Monocytes # 0.6 10^3/uL (0.2-0.9); Monocytes % 9.8 %; Neutrophils # 4.16 10^3/uL (1.8-7.7); Neutrophils % 64.4 %; Nucleated Red Blood Cells % 0 %; Platelet Count 327 10^3/cmm (130-400); Red Blood Count 4.49 10^6/uL (4.1-5.3); Red Cell Distribution Width 20.8 % (12.1-15.1); White Blood Count 6.5 10^3/uL (4.0-10.0)
[2021-01-28 08:54] LABS: Alanine Aminotransferase 12 U/L (0-33); Alkaline Phosphatase 77 IU/L (35-105); Anion Gap 12.2 (5-19); Aspartate Amino Transferase 13 U/L (0-32); Blood Urea Nitrogen 17 mg/dL (6-20); Calcium 8.8 mg/dL (8.5-10.5); Carbon Dioxide 26 mmol/L (22-29); Chloride 102 mmol/L (98-107); Ferritin 43 ng/mL (15-150); Glucose 92 mg/dL (65-115); Iron 18 ug/dL (37-145); Osmolality Calculated 283 mOsm/kg (285-295); Percent Saturation 5.6 % (20-50); Potassium 4.2 mmol/L (3.5-5.1); Sodium 136 mmol/L (136-145); Total Bilirubin 0.2 mg/dL (0.15-1.2); Total Iron Binding Capacity 321 mcg/dl; Unsaturated Iron Binding 303 ug/dL (112-347)
--- NOTE | 2021-01-31 14:33 | ONC FU_ITS ---
Dr. Strickland Patient Follow-Up Note Patient: Tawny Merino Unit #: [id number]: 1980 Dicatated By: Loy Strickland M.D.Date of Visit:Jan 28, 2021 Onc Med Follow-up/Prog Note Chief Complaint: Anemia. History of Present Illness: This is a 40-year-old woman with severe anemia, at least some component of which is due to iron deficiency. She has a history of chronic anemia. She had previously not been able to corrected with oral iron, in part due to the fact that she has tolerated very poorly and has not been able to take it on a regular basis. On 11/09/2020 she was admitted to the hospital after presenting to the emergency room with severe weakness, shortness of breath, and lightheadedness. Her hemoglobin was only 3.1 g with hematocrit 12.6%. The red cell indices were markedly hypochromic/microcytic with MCV 66 and MCH 16. The serum iron was 10 mcg/dL with transferrin saturation 2.5% and the ferritin was low at 16 ng/mL, consistent with iron deficiency. Her B12 level was normal at 660 pg/mL. She was transfused a total of 4 units PRBC, and she also received 3 infusions of Venofer. She had not been aware of obvious GI blood loss, but she had a known history of peptic ulcer disease and she was having GERD symptoms. Her EGD on 11/12/2020 showed evidence of hiatal hernia with gastritis and associated gastric erosions. Gastric biopsy was negative for gastropathy and negative for H. pylori. She was discharged home on pantoprazole 40 mg daily. I had seen her initially on 11/16/2020. Her repeat CBC still showed moderately severe anemia with hemoglobin 9.1 g and 31.9%. The red cell indices were hypochromic and microcytic. Her serum iron studies showed low transferrin saturation at 8.5%. As she had previously been intolerant of oral iron supplements, I had recommended that she have parenteral iron replacement. She returned on 12/07/2020 for an infusion of Infed, as that product had been mandated by her insurance carrier. She tolerated it with no acute toxicity. She is seen now for a followup visit. She has not been feeling good. Her energy is pretty bad, though she is still able to do some light work. ECOG score is 1. She does not have good appetite. She says she has been having a lot of abdominal pain and constipation the last several days. She has not had fever. She has had some sweating, but she thinks that she is due to the hot weather. She has sinus drainage and itchy throat, attributable to allergies. She has a little bit of cough. She does not have shortness of breath or chest pain. She has not had nausea/vomiting and she is not having any obvious acid reflux symptoms. Bladder function has been okay. She has pain in her right knee. She has some headaches associated with her allergy symptoms. She has no focal neurologic symptoms. Medications: Acetaminophen 1 (325 mg) Tablet Oral four times a day, Pantoprazole Sodium 1 (40 mg) Tablet, enteric coated Oral b.i.d., Venofer (200 mg/mL) Intravenous Take as Directed Allergies: Sulfa Antibiotics Vital Signs: Performed on Jan 28, 2021 09:33 Height - 59.00 in Weight - 208.2 lbs (HIGH) BSA - 1.88 sq.m BMI - 42.05 (HIGH) Temperature - 97.7 F (LOW) Pulse - 106 /min (HIGH) Respiration - 18 /min BP - 133/90 mm(hg) O2 Sat - 99 % Pain - 7 Fatigue - 6 Physical Examination: Constitutional - She looks pretty good generally, Eyes - Sclerae nonicteric. Conjunctivae clear, ENMT - No lesions noted in the oral cavity, Hematologic/Lymphatic - No cervical, clavicular, or axillary adenopathy, Respiratory - Lungs are clear with good air movement bilaterally, Cardiovascular - Heart rhythm is regular. There is no murmur, gallop, or rub noted, Abdomen - Soft. There is mild abdominal tenderness. Liver and spleen are not enlarged. There is no abdominal mass or ascites noted and there is no inguinal adenopathy, Extremities - No edema, Neurologic - No focal neurologic deficits noted. Lab/Imaging: Test performed on Jan 28, 2021 08:10 Ferritin 43 ng/mL Iron 18 mcg/dL Sodium 136 mmol/L Iron Binding Capacity (TIBC) 321 mcg/dl Potassium 4.2 mmol/L % Iron Saturation 5.6 % Chloride 102 mmol/L CO2 26 mmol/L UIBC 303 mcg/dL Anion Gap 12.2 BUN 17 mg/dL Creatinine 0.8 mg/dL Cr Clearance (Est) 137.97 mL/min eGFR 79.0 mL/min Glucose 92 mg/dL Osmolality - Calculated 283 mOsm/kg Calcium 8.8 mg/dL Protein, Total 7.0 g/dL Albumin 4.0 g/dL Globulin 3.0 g/dL Bilirubin, Total 0.2 mg/dL ALT (SGPT) 12 U/L AST (SGOT) 13 U/L Alkaline Phosphatase 77 IU/L WBC 6.5 10 3/uL RBC 4.49 10 6/uL HGB 10.1 g/dL HCT 34.8 % MCV 77.5 fL MCH 22.5 pg MCHC 29.0 g/dL RDW 20.8 % Platelet Count 327 10 3/cmm MPV 10.3 fL Neutrophils 4.16 10 3/uL Lymphocytes 1.3 10 3/uL Monocytes 0.6 10 3/uL Eosinophils 0.3 10 3/uL Basophils 0.1 10 3/uL Neutrophil % 64.4 % Lymphocyte % 20.3 % Monocyte % 9.8 % Eosinophil % 4.2 % Basophils % 0.8 % NRBC % 0 % Problem List: 1. Acute on chronic anemia, with at least some component due to iron deficiency. 2. Hiatal hernia/GERD and prior history of peptic ulcer disease. 3. Hypertension. 4. History of nephrolithiasis. Problems Addressed with this Encounter and Plan: 1. Patient with acute on chronic anemia. At least some component of the anemia is due to iron deficiency. The cause is likely a combination of GI blood loss and inadequate oral iron absorption. As she had been intolerant of oral iron supplements, she was given parenteral iron replacement with a single infusion of Infed on 12/07/2020. She tolerated it without acute toxicity. She has had just a slight increase in her hemoglobin, now to 10.1 g. As her transferrin saturation is still low at 5.6%, she will be scheduled for a second infusion of Infed. She will return for followup in 1 month. In the meantime, she will be scheduled for a CT abdomen/pelvis. She will have further evaluation as indicated. 2. She has hiatal hernia/GERD. She continues pantoprazole 40 mg twice daily. Signed By: Loy Strickland M.D. <<Signature on File>>
== END 2021-01-28 08:02 | disposition home or self-care (01) ==
LOC: ONCMED 08:05
PROVIDERS: Visit Provider Internal Medicine Medical Oncology
DX: D64.9 Anemia, unspecified (principal); D50.9 Iron deficiency anemia, unspecified; K21.9 Gastro-esophageal reflux disease without esophagitis; Z87.11 Personal history of peptic ulcer disease; I10 Essential (primary) hypertension; Z87.442 Personal history of urinary calculi
CPT/HCPCS: 36415; 80053; 82728; 83540; 83550; 85025; 99214

== ENCOUNTER 2021-01-29 06:59 | Outpatient (CLI) | payer OTHER, BC, MEDICAID, SELFPAY ==
[2021-01-29] MEDS: diphenhydrAMINE 50 mg/mL SDV 1mL 25 MG IV (07:15)
[2021-01-29] MEDS: acetaminophen 325 mg Tablet 650 MG PO (07:15)
[2021-01-29] MEDS: sodium chloride 0.9% 250 ML 35 ML IV (07:15)
[2021-01-29] MEDS: iron dextran 25 MG in SYRINGE 1 EACH 30 MG IVP (07:37)
== END 2021-01-29 07:00 | disposition home or self-care (01) ==
LOC: ONCMED 07:01
PROVIDERS: Visit Provider Internal Medicine Medical Oncology
DX: D50.9 Iron deficiency anemia, unspecified (principal); K21.9 Gastro-esophageal reflux disease without esophagitis; Z87.11 Personal history of peptic ulcer disease; Z79.899 Other long term (current) drug therapy
CPT/HCPCS: 96365; 96366; 96367; 96375; J1100; J1200; J1750; J7030; J7050

== ENCOUNTER 2021-02-11 06:25 | Outpatient (CLI) | payer OTHER, BC, MEDICAID, SELFPAY ==
[2021-02-11 10:16] LABS: Basophils # 0.1 10^3/uL (0.0-0.1); Basophils % 0.8 %; Eosinophils # 0.2 10^3/uL (0.0-0.8); Eosinophils % 2.5 %; Hematocrit 39.1 % (37.0-47.0); Hemoglobin 11.6 g/dL (11.5-15.3); Lymphocytes # 1.7 10^3/uL (0.8-4.8); Lymphocytes % 23.8 %; Mean Corpuscular HGB Conc 29.7 g/dL (30.0-36.0); Mean Corpuscular Hemoglobin 23.7 pg (28.0-34.0); Mean Platelet Volume 9.9 fL (7.4-10.4); Monocytes # 0.6 10^3/uL (0.2-0.9); Monocytes % 7.9 %; Neutrophils # 4.73 10^3/uL (1.8-7.7); Neutrophils % 64.7 %; Nucleated Red Blood Cells % 0 %; Platelet Count 226 10^3/cmm (130-400); Red Blood Count 4.89 10^6/uL (4.1-5.3); Red Cell Distribution Width 24.6 % (12.1-15.1); White Blood Count 7.3 10^3/uL (4.0-10.0)
[2021-02-11 10:28] LABS: Ferritin 271 ng/mL (15-150); Iron 38 ug/dL (37-145); Percent Saturation 14.2 % (20-50); Total Iron Binding Capacity 266 mcg/dl; Unsaturated Iron Binding 228 ug/dL (112-347)
== END 2021-02-11 06:26 | disposition home or self-care (01) ==
LOC: ONCMED 06:26
PROVIDERS: Visit Provider Internal Medicine Medical Oncology
DX: D50.9 Iron deficiency anemia, unspecified (principal); Z79.899 Other long term (current) drug therapy
CPT/HCPCS: 82728; 83540; 83550; 85025

== ENCOUNTER 2021-02-23 13:00 | Outpatient (CLI) | payer OTHER, BC, MEDICAID, SELFPAY ==
--- NOTE | 2021-02-23 13:16 | CT_ITS ---
WS: [id number] CT ABDOMEN PELVIS TECHNIQUE: Contrast-enhanced CT of the abdomen and pelvis with coronal and sagittal reformatted image s. CLINICAL INFORMATION: LEFT UPPER AND LOWER QUADRANT ABDOMINAL PAIN COMPARISON: None. DLP: 1037.[address] scans at [facility] use at least one of these dose optimization techniques: automat ed exposure control; mA and/or kV adjustment per patient size (includes targeted exams where dose is matched to clinical indication); or iterative reconstruction. FINDINGS: Large esophageal hiatal hernia with partial intrathoracic stomach. Air-fluid level within the distal stomach and duodenum. Lung bases are well aerated. Mild hepatomegaly with diffuse fatty infiltration of the liver. Cholecystectomy clips. Normal portal vein and splenic vein. Normal spleen measuring 10. 0 cm. Normal caliber abdominal aorta. 14 mm right adrenal adenoma. Normal left adrenal gland. Pancreas appears normal. Normal renal parench ymal enhancement. No hydronephrosis. Left renal atrophy. Mild sigmoid constipation. No evidence of small or large bowel obstruction. Evidence of prior ventral abdominal wall hernia mesh repair. Fat-containing umbilical hernia. Normal spleen.No abdominal or pelvic lymphadenopathy. No inguinal lymphadenopathy. Disc space narrowi ng L5-S1. Lobulated heterogeneous enhancing uterus. Endometrium is not well-defined. Recommend furthe r evaluation with hysteroscopy. CT/CT abdomen pelvis w con* [id number] IMPRESSION: 1. Hepatomegaly with diffuse fatty infiltration. Prior cholecystectomy. 2. Large esophageal hiatal hernia with partial intrathoracic stomach. 3. No abdominal or pelvic lymphadenopathy. No inguinal lymphadenopathy. 4. Lobulated heterogeneous uterus. Endometrium is not well-defined. This can b e further evaluated with hysteroscopy. 5. No free fluid in the pelvis. 6. Left renal atrophy. No hydronephrosis in either kidney.
[2021-02-23] MEDS: iohexol 300 mg/mL 50 mL Btl PO (13:58)
[2021-02-23] MEDS: iohexol 300 mg/mL 100 mL Btl IV (14:52)
== END 2021-02-23 13:01 | disposition home or self-care (01) ==
PROVIDERS: Visit Provider Internal Medicine Medical Oncology
DX: R10.12 Left upper quadrant pain; R10.32 Left lower quadrant pain; R16.0 Hepatomegaly, not elsewhere classified; K76.0 Fatty (change of) liver, not elsewhere classified; N26.1 Atrophy of kidney (terminal)
CPT/HCPCS: 74177; Q9967

== ENCOUNTER 2021-03-25 11:41 | Outpatient (CLI) | payer OTHER, BC, MEDICAID, SELFPAY ==
[2021-03-25 12:12] LABS: Basophils # 0.1 10^3/uL (0.0-0.1); Basophils % 0.9 %; Eosinophils # 0.3 10^3/uL (0.0-0.8); Eosinophils % 4.7 %; Hematocrit 41.3 % (37.0-47.0); Hemoglobin 12.4 g/dL (11.5-15.3); Lymphocytes # 1.8 10^3/uL (0.8-4.8); Lymphocytes % 26.3 %; Mean Corpuscular Hemoglobin 24.4 pg (28.0-34.0); Mean Corpuscular Volume 81.1 fl (81-99); Monocytes # 0.5 10^3/uL (0.2-0.9); Monocytes % 7.2 %; Neutrophils # 4.02 10^3/uL (1.8-7.7); Neutrophils % 60.4 %; Nucleated Red Blood Cells % 0 %; Platelet Count 230 10^3/cmm (130-400); Red Blood Count 5.09 10^6/uL (4.1-5.3); Red Cell Distribution Width 21.5 % (12.1-15.1); White Blood Count 6.7 10^3/uL (4.0-10.0)
[2021-03-25 12:34] LABS: Ferritin 80 ng/mL (15-150); Iron 40 ug/dL (37-145); Percent Saturation 15.4 % (20-50); Total Iron Binding Capacity 259 mcg/dl; Unsaturated Iron Binding 219 ug/dL (112-347)
--- NOTE | 2021-03-28 09:57 | ONC FU_ITS ---
Dr. Strickland Patient Follow-Up Note Patient: Tawny Merino Unit #: [id number]: 1980 Dicatated By: Loy Strickland M.D.Date of Visit:Mar 25, 2021 Onc Med Follow-up/Prog Note Chief Complaint: Anemia. History of Present Illness: This is a 40-year-old woman with iron deficiency anemia. She has a history of chronic anemia. She had previously not been able to correct it with oral iron, in part due to the fact that she has tolerated very poorly and she had not been able to take it on a regular basis. On 11/09/2020 she was admitted to the hospital after presenting to the emergency room with severe weakness, shortness of breath, and lightheadedness. Her hemoglobin was only 3.1 g with hematocrit 12.6%. The red cell indices were markedly hypochromic/microcytic with MCV 66 and MCH 16. The serum iron was 10 mcg/dL with transferrin saturation 2.5% and the ferritin was low at 16 ng/mL, consistent with iron deficiency. Her B12 level was normal at 660 pg/mL. She was transfused a total of 4 units PRBC, and she also received 3 infusions of Venofer. She had not been aware of obvious GI blood loss, but she had a known history of peptic ulcer disease and she was having GERD symptoms. Her EGD on 11/12/2020 showed evidence of hiatal hernia with gastritis and associated gastric erosions. Gastric biopsy was negative for gastropathy and negative for H. pylori. She was discharged home on pantoprazole 40 mg daily. I had seen her initially on 11/16/2020. Her repeat CBC still showed moderately severe anemia with hemoglobin 9.1 g and 31.9%. The red cell indices were hypochromic and microcytic. Her serum iron studies showed low transferrin saturation at 8.5%. As she had previously been intolerant of oral iron supplements, I had recommended that she have parenteral iron replacement. She returned on 12/07/2020 for an infusion of Infed, as that product had been mandated by her insurance carrier. She tolerated it with no acute toxicity. At her follow-up visit on 01/28/2021 she was still mildly anemic with hemoglobin 10.1 g and hematocrit 34.8%. The red cell indices were hypochromic/microcytic. The serum iron studies showed low transferrin saturation at 5% and the ferritin was still relatively low at 43 ng/mL. At that point she was given a second infusion of Infed. She is seen now for a follow-up visit. She has been feeling a little tired, but overall her energy is much better and she is working. Her ECOG score is 1. She has good appetite. She has not had fever. She says she sweats quite a bit with activity, but she is not having hot flashes or night sweating. She says her menstrual periods have been heavy, with heavy flow lasting about 7 days. She has having some sinus drainage and a little bit of cough. She does not complain of shortness of breath or chest pain. Her acid reflux symptoms have improved. She currently has no GI or complaints. Her joints are creaky. She has had some sinus headache. She has no focal neurologic symptoms. Medications: Acetaminophen 1 (325 mg) Tablet Oral four times a day, Pantoprazole Sodium 1 (40 mg) Tablet, enteric coated Oral b.i.d., Venofer (200 mg/mL) Intravenous Take as Directed Allergies: Sulfa Antibiotics Vital Signs: Performed on Mar 25, 2021 13:49 Height - 59.00 in Weight - 209.6 lbs (HIGH) BSA - 1.88 sq.m BMI - 42.33 (HIGH) Temperature - 97.7 F (LOW) Pulse - 90 /min Respiration - 18 /min BP - 157/98 mm(hg) (HIGH) O2 Sat - 98 % Pain - 0 Fatigue - 6 Physical Examination: Constitutional - She looks pretty good generally, Eyes - Sclerae nonicteric. Conjunctivae clear, ENMT - No lesions noted in the oral cavity, Hematologic/Lymphatic - No cervical, clavicular, or axillary adenopathy, Respiratory - Lungs are clear with good air movement bilaterally, Cardiovascular - Heart rhythm is regular. There is no murmur, gallop, or rub noted, Abdomen - Soft. Liver and spleen are not enlarged. There is no abdominal mass or ascites noted and there is no inguinal adenopathy, Extremities - No edema, Neurologic - No focal neurologic deficits noted. Lab/Imaging: Test performed on Mar 25, 2021 11:50 Ferritin 80 ng/mL Iron 40 mcg/dL Iron Binding Capacity (TIBC) 259 mcg/dl % Iron Saturation 15.4 % UIBC 219 mcg/dL WBC 6.7 10 3/uL RBC 5.09 10 6/uL HGB 12.4 g/dL HCT 41.3 % MCV 81.1 fl MCH 24.4 pg MCHC 30.0 g/dL RDW 21.5 % Platelet Count 230 10 3/cmm MPV 10.0 fL Neutrophils 4.02 10 3/uL Lymphocytes 1.8 10 3/uL Monocytes 0.5 10 3/uL Eosinophils 0.3 10 3/uL Basophils 0.1 10 3/uL Neutrophil % 60.4 % Lymphocyte % 26.3 % Monocyte % 7.2 % Eosinophil % 4.7 % Basophils % 0.9 % NRBC % 0 % Problem List: 1. Acute on chronic anemia, with at least some component due to iron deficiency. 2. Hiatal hernia/GERD and prior history of peptic ulcer disease. 3. Hypertension. 4. History of nephrolithiasis. Problems Addressed with this Encounter and Plan: 1. Patient with acute on chronic anemia. This does appear to be an iron deficiency anemia, and it is most likely due to a combination of menstrual blood loss and inadequate oral iron absorption. It has improved following 2 infusions of Infed, which she tolerated well. At this point she will just be followed expectantly. Blood counts will be monitored monthly. I will see her again in 3 months. In the meantime, she is recommended to have COLLECT ON DELIVERY CLERK evaluation for the menorrhagia. 2. She has hiatal hernia/GERD. Her symptoms have improved with pantoprazole. Signed By: Loy Strickland M.D. <<Signature on File>>
== END 2021-03-25 11:42 | disposition home or self-care (01) ==
PROVIDERS: Visit Provider Internal Medicine Medical Oncology
DX: D50.0 Iron deficiency anemia secondary to blood loss (chronic) (principal); K21.9 Gastro-esophageal reflux disease without esophagitis; K44.9 Diaphragmatic hernia without obstruction or gangrene; I10 Essential (primary) hypertension; Z87.442 Personal history of urinary calculi; Z79.899 Other long term (current) drug therapy
CPT/HCPCS: 36415; 82728; 83540; 83550; 85025; 99214

== ENCOUNTER 2021-04-23 08:22 | Outpatient (CLI) | payer OTHER, BC, MEDICAID, SELFPAY ==
[2021-04-23 09:24] LABS: Basophils % 0.6 %; Eosinophils # 0.4 10^3/uL (0.0-0.8); Eosinophils % 5.4 %; Hematocrit 37.1 % (37.0-47.0); Hemoglobin 11.4 g/dL (11.5-15.3); Lymphocytes % 29.2 %; Mean Corpuscular HGB Conc 30.7 g/dL (30.0-36.0); Mean Corpuscular Hemoglobin 25.1 pg (28.0-34.0); Mean Corpuscular Volume 81.7 fl (81-99); Mean Platelet Volume 10.6 fL (7.4-10.4); Monocytes # 0.6 10^3/uL (0.2-0.9); Monocytes % 8.8 %; Neutrophils # 3.74 10^3/uL (1.8-7.7); Neutrophils % 55.6 %; Nucleated Red Blood Cells % 0 %; Platelet Count 241 10^3/cmm (130-400); Red Blood Count 4.54 10^6/uL (4.1-5.3); Red Cell Distribution Width 19.9 % (12.1-15.1); White Blood Count 6.7 10^3/uL (4.0-10.0)
== END 2021-04-23 08:23 | disposition home or self-care (01) ==
PROVIDERS: Visit Provider Internal Medicine Medical Oncology
DX: D50.0 Iron deficiency anemia secondary to blood loss (chronic) (principal)
CPT/HCPCS: 36415; 85025

== ENCOUNTER → 2021-04-26 16:29 | Outpatient (BNVA) | payer OTHER, BC, MEDICAID, SELFPAY | PROVIDERS: Referring Provider Internal Medicine Medical Oncology; Visit Provider Obstetrics & Gynecology | DX: N92.0 Excessive and frequent menstruation with regular cycle (principal) | CPT/HCPCS: 83001; 84146; 84443; 84702 ==

== ENCOUNTER → 2021-05-04 13:45 | Outpatient (BNVA) | payer OTHER, BC, MEDICAID, SELFPAY | PROVIDERS: Visit Provider Obstetrics & Gynecology | DX: N85.2 Hypertrophy of uterus (principal); N85.4 Malposition of uterus | CPT/HCPCS: 76830 ==

== ENCOUNTER 2021-05-28 11:03 | Outpatient (CLI) | payer OTHER, BC, MEDICAID, SELFPAY ==
[2021-05-28 12:39] LABS: Basophils # 0.1 10^3/uL (0.0-0.1); Basophils % 0.5 %; Eosinophils # 0.3 10^3/uL (0.0-0.8); Eosinophils % 3.2 %; Hematocrit 37.3 % (37.0-47.0); Hemoglobin 11.2 g/dL (11.5-15.3); Lymphocytes # 1.9 10^3/uL (0.8-4.8); Mean Corpuscular Hemoglobin 24.9 pg (28.0-34.0); Mean Corpuscular Volume 82.9 fl (81-99); Mean Platelet Volume 10.9 fL (7.4-10.4); Monocytes # 0.7 10^3/uL (0.2-0.9); Monocytes % 7.6 %; Neutrophils # 6.15 10^3/uL (1.8-7.7); Neutrophils % 67.4 %; Nucleated Red Blood Cells % 0 %; Platelet Count 239 10^3/cmm (130-400); Red Cell Distribution Width 15.1 % (12.1-15.1); White Blood Count 9.1 10^3/uL (4.0-10.0)
== END 2021-05-28 11:04 | disposition home or self-care (01) ==
LOC: ONCMED 11:05
PROVIDERS: PCP Nurse Practitioner Family; Visit Provider Internal Medicine Medical Oncology
DX: D50.9 Iron deficiency anemia, unspecified (principal)
CPT/HCPCS: 36415; 85025

== ENCOUNTER 2021-06-09 06:10 | Observation (INO) | payer OTHER, BC, MEDICAID, SELFPAY ==
[2021-06-09] VITALS (21 sets, daily range): BP systolic 113–148; BP diastolic 67–112; PULSE 62–119; RESP 16–26; TEMP 36.4–37.2; O2SAT 94–100; BMI 42.4
--- NOTE | 2021-06-09 06:16 | XRR_ITS ---
PROCEDURE INFORMATION: Exam: XR Chest Exam date and time: 06/09/2021 6:16 AM Age: 41 years old Clinical indication: Cough and dyspnea; Patient HX: SOB coughing x 2 days TECHNIQUE: Imaging protocol: XR of the chest. Views: 1 view. Total images: 1 COMPARISON: CR XR chest 1V portable [id number] 11/09/2020 7:26 PM FINDINGS: Lungs: Unremarkable. No consolidation. Pleural spaces: Unremarkable. No pleural effusion. No pneumothorax. Heart/Mediastinum: A large hiatal hernia is present. Accounting for double density in the heart and was seen on prior CT. Heart size is stable when compared to the prior exam. Bones/joints: Osseous structures are unchanged from the prior exam. Organs: Surgical clips are present in the right upper quadrant which are suggestive of prior cholecystectomy. XR/XR chest 1V portable [id number] IMPRESSION: No acute cardiopulmonary process. Radiation Dose CTDIVOL = (mGy): DLP = (mGy-cm)
--- NOTE | 2021-06-09 06:16 | ECG_ITS ---
[facility] Test Date: 2021-06-09 Pat Name: Tawny Merino Department: Room: 251 Gender: Female Funeral Driver: : 1980 Requested By: Venkatesh Mcadams Order Number: [id number] Afsaneh MD: Jordan Smith M.D. Measurements Intervals [place] Rate: 101 P: 50 [place]: 142 QRS: 57 QRSD: 75 T: 55 QT: 347 QTc: 450 Interpretive Statements SINUS TACHYCARDIA NONSPECIFIC T-WAVE ABNORMALITY No previous ECG available for comparison Electronically Signed On 06-10-2021 17:13:03 CDT by Jordan Smith M.D. [id number]
--- NOTE | 2021-06-09 06:20 | W.ED.GENADLT ---
HPI - General Adult General: Chief complaint: Weakness Stated complaint: WEAKNESS/SOB Time Seen by Provider: 06/09/21 06:16 History of Present Illness: HPI narrative: Patient is a 41-year-old female with a history of anemia of unknown origin, menorrhagia, family hx of anemia, prior gastric erosions from prior visist on 11/09/2020 who presents the emergency room for evaluation of generalized weakness and shortness of breath. Patient symptoms symptoms has worsened over the last week. Of note, patient also reports dark tarry stools including 1 episode this morning. She denies any Pepto-Bismol or iron use recently. Last iron infusion was in February. Patient denies any history of asthma, COPD, smoking at this time. Denies any fever or chills, other abdominal complaints or complaints. Onset: 2 weeks ago Duration:2 weeks Location:home Severity:moderate Review of Systems Narrative: Constitutional: No fever, no chills. HEENT: No vision changes CV: +chest pain, no palpitations PULM: no cough, no dyspnea. GI: No abdominal pain, +n/+v/-d, +melena : No dysuria MSKEL: No muscle pain SKIN: No new rashes, no lesions. NEURO: No headache, no focal weakness. HEME: No visible bruises PSYCH: Normal mood PFSH ED PFSH: Medical History (Updated 06/11/21 @ 00:02 by ) Gastritis Hiatal hernia History of gastritis History of peptic ulcer disease Hypertension Iron deficiency anemia Nephrolithiasis Surgical History History of abdominal surgery Multiple ventral hernia repairs with mesh Hx of cholecystectomy Tubal ligation status Family History Father Dementia Mother Dementia Social History (Updated 06/09/21 @ 09:23 by Ravi Cheney MD) Smoking and tobacco status: current some day smoker Alcohol intake: never Housing: House Physical Exam Narrative: EXAM NARRATIVE: Head: Atraumatic Eyes: PERRL, +pale conjunctiva ENT: Dry membrane moist NECK: Supple, ROM intact LUNGS: LCTAB, no crackles/rhonchi CV: Sinus tachycardia ABDOMEN: Soft, nontender in all quadrants EXTREMITY: Normal ROM SKIN: No rash or erythema NEURO: Awake and alert, no focal motor deficits PSYCH: Normal mood and affect Course Vital Signs: Vital signs: Vital Signs Temperature 98.3 F 06/10/21 11:49 Pulse Rate 88 06/10/21 11:49 Respiratory Rate 17 06/10/21 11:49 Blood Pressure 133/84 06/10/21 11:49 Pulse Oximetry 100 06/10/21 11:49 MDM - General Adult MDM Narrative: Medical decision making narrative: 41-year-old female with history of anemia presenting to the emergency room with dyspnea, generalized weakness. On exam, patient is tachycardic to 112 appears pale on exam. Rest of history within normal limit. Workup: CBC, BMP, Type and screen, EKG, troponin x 2 Intervention: IVF EKG showing regular sinus rhythm at HT of [101]. Normal axis. No ST elevations/depressions to suggest coronary occlusion. Normal [place], QRS, QT intervals. Hemoglboin of 4.7 today. Will transfuse 2u in the ED. Patient will be admitted for serial H&H and additional transfusion. Disposition: Admission Lab Data: Labs: Lab Results 06/09/21 06/09/21 06/09/21 06:00 06:00 06:18 WBC 14.1 10^3/uL H 10 ^3/uL (4.0-10.0) RBC 1.94 10^6/uL L 10 ^6/uL (4.1-5.3) Hgb 4.7 g/dL L* g/dL (11.5-15.3) Hct 16.3 % L* % (37.0-47.0) MCV 84.0 fl fl (81-99) MCH 24.2 pg L pg (28.0-34.0) MCHC 28.8 g/dL L g/dL (30.0-36.0) RDW 16.2 % H % (12.1-15.1) Plt Count 305 10^3/cmm 10^3 /cmm (130-400) MPV 10.6 fL H fL (7.4-10.4) Neut % (Auto) 70.9 % % Lymph % (Auto) 17.5 % % [place] % (Auto) 7.7 % % Eos % (Auto) 2.6 % % Baso % (Auto) 0.3 % % Neut # (Auto) 9.98 10^3/uL H 10 ^3/uL (1.8-7.7) Lymph # (Auto) 2.5 10^3/uL 10^3/ uL (0.8-4.8) [place] # (Auto) 1.1 10^3/uL H 10^ 3/uL (0.2-0.9) Eos # (Auto) 0.4 10^3/uL 10^3/ uL (0.0-0.8) Baso # (Auto) 0.0 10^3/uL 10^3/ uL (0.0-0.1) Nucleated RBC % (a uto) 1.4 % % Nucleated RBCs # 0.2 /100WBC /100W BC PT 13.40 SECONDS SEC ONDS (12.1-14.9) INR 0.99 (0.8-1.2) APTT 24.1 SECONDS SECO NDS (23.9-36.7) Sodium Potassium Chloride Carbon Dioxide Anion Gap BUN Creatinine GFR Calculation Glucose Calculated Osmolal ity Calcium Iron TIBC % Saturation Unsat Iron Binding Ferritin Total Bilirubin 0.2 mg/dL mg/dL (0.15-1.2) Direct Bilirubin 0.20 mg/dL mg/dL (0.00-0.30) AST 11 U/L U/L (0-32) ALT 8 U/L U/L (0-33) Alkaline Phosphata se 49 IU/L IU/L (35-105) Troponin T Baselin e NT-Pro-B Natriuret Pep Total Protein 5.2 g/dL L g/dL (6.6-8.7) Albumin 3.4 g/dL L g/dL (3.5-5.2) Globulin 1.8 g/dL g/dL (1.3-4.6) SARS-CoV-2 Ag (Rap id) Blood Type Rho(D) Type Antibody Screen Crossmatch 06/09/21 06/09/21 06/09/21 06:18 06:18 06:20 WBC RBC Hgb Hct MCV MCH MCHC RDW Plt Count MPV Neut % (Auto) Lymph % (Auto) [place] % (Auto) Eos % (Auto) Baso % (Auto) Neut # (Auto) Lymph # (Auto) [place] # (Auto) Eos # (Auto) Baso # (Auto) Nucleated RBC % (a uto) Nucleated RBCs # PT INR APTT Sodium 135 mmol/L L mmol /L (136-145) Potassium 4.7 mmol/L mmol/L (3.5-5.1) Chloride 106 mmol/L mmol/L (98-107) Carbon Dioxide 20 mmol/L L mmol/ L (22-29) Anion Gap 13.7 (5-19) BUN 31 mg/dL H mg/dL (6-20) Creatinine 0.6 mg/dL mg/dL (0.5-0.9) GFR Calculation 109.6 mL/min mL/m in (90-130) Glucose 133 mg/dL H mg/dL (65-115) Calculated Osmolal ity 288 mOsm/kg mOsm/ kg (285-295) Calcium 7.9 mg/dL L mg/dL (8.5-10.5) Iron TIBC % Saturation Unsat Iron Binding Ferritin Total Bilirubin Direct Bilirubin AST ALT Alkaline Phosphata se Troponin T Baselin e 6 ng/L ng/L (0-10) NT-Pro-B Natriuret Pep 33 pg/mL pg/mL (0-125) Total Protein Albumin Globulin SARS-CoV-2 Ag (Rap id) Negative (Negative) Blood Type Rho(D) Type Antibody Screen Crossmatch 06/09/21 06/09/21 06:20 06:36 WBC RBC Hgb Hct MCV MCH MCHC RDW Plt Count MPV Neut % (Auto) Lymph % (Auto) [place] % (Auto) Eos % (Auto) Baso % (Auto) Neut # (Auto) Lymph # (Auto) [place] # (Auto) Eos # (Auto) Baso # (Auto) Nucleated RBC % (a uto) Nucleated RBCs # PT INR APTT Sodium Potassium Chloride Carbon Dioxide Anion Gap BUN Creatinine GFR Calculation Glucose Calculated Osmolal ity Calcium Iron 12 ug/dL L ug/dL (37-145) TIBC 334 mcg/dl mcg/dl % Saturation 3.5 % L % (20-50) Unsat Iron Binding 322 ug/dL ug/dL (112-347) Ferritin 15 ng/mL ng/mL (15-150) Total Bilirubin Direct Bilirubin AST ALT Alkaline Phosphata se Troponin T Baselin e NT-Pro-B Natriuret Pep Total Protein Albumin Globulin SARS-CoV-2 Ag (Rap id) Blood Type O Positive Rho(D) Type Positive Antibody Screen Negative Crossmatch See Detail Imaging Data^: Other Imaging: Radiologist's impression: [facility] [place], [place] [address]WMpu ReportSigned Patient: Britt Merino #: [id number]: 1980Acct#:[id number]/Sex: 41 / FADM Date: 06/09/21Loc: ERRoom/Bed:Attending Dr: Ordering Provider/Ordering MD: Venkatesh Mcadams MD Date of Service: 06/09/21 Procedure(s): XR chest 1V portable [id number] Accession Number(s): [id number] Report Number: [id number] PROCEDURE INFORMATION: Exam: XR Chest Exam date and time: 06/09/2021 6:16 AM Age: 41 years old Clinical indication: Cough and dyspnea; Patient HX: SOB coughing x 2 days TECHNIQUE: Imaging protocol: XR of the chest. Views: 1 view. Total images: 1 COMPARISON: CR XR chest 1V portable [id number] 11/09/2020 7:26 PM FINDINGS: Lungs: Unremarkable. No consolidation. Pleural spaces: Unremarkable. No pleural effusion. No pneumothorax. Heart/Mediastinum: A large hiatal hernia is present. Accounting for double density in the heart and was seen on prior CT. Heart size is stable when compared to the prior exam. Bones/joints: Osseous structures are unchanged from the prior exam. Organs: Surgical clips are present in the right upper quadrant which are suggestive of prior cholecystectomy. XR/XR chest 1V portable [id number] IMPRESSION: No acute cardiopulmonary process. Radiation Dose CTDIVOL = (mGy): DLP = (mGy-cm) Dictated By:Castillo Orellana MDSigned By:Castillo Orellana MDSigned Date/Time:06/09/2142DD/ 5 Discharge Plan Discharge Patient Disposition: Admitted As Inpatient Admit Provider: Ravi Cheney Clinical Impression: Chest pain, Dyspnea, Melena, Anemia Condition: Stable Coding Level of Care Code ED Insulation Professional for Ovidio Estrada
[2021-06-09 06:22] LABS: Basophils % 0.3 %; Eosinophils # 0.4 10^3/uL (0.0-0.8); Eosinophils % 2.6 %; Lymphocytes # 2.5 10^3/uL (0.8-4.8); Lymphocytes % 17.5 %; Mean Corpuscular HGB Conc 28.8 g/dL (30.0-36.0); Mean Corpuscular Hemoglobin 24.2 pg (28.0-34.0); Mean Platelet Volume 10.6 fL (7.4-10.4); Monocytes # 1.1 10^3/uL (0.2-0.9); Monocytes % 7.7 %; Neutrophils # 9.98 10^3/uL (1.8-7.7); Neutrophils % 70.9 %; Nucleated Red Blood Cells # 0.2 /100WBC; Nucleated Red Blood Cells % 1.4 %; Platelet Count 305 10^3/cmm (130-400); Red Blood Count 1.94 10^6/uL (4.1-5.3); Red Cell Distribution Width 16.2 % (12.1-15.1); White Blood Count 14.1 10^3/uL (4.0-10.0)
[2021-06-09] MEDS: sodium chloride 0.9% 500 ML IV (06:25)
[2021-06-09 06:34] LABS: Hemoglobin 4.7 g/dL (11.5-15.3)
[2021-06-09 06:35] LABS: Hematocrit 16.3 % (37.0-47.0)
[2021-06-09 06:47] LABS: SARS Covid-2 Antigen Negative (Negative)
[2021-06-09 06:48] LABS: Troponin(5th) Baseline 6 ng/L (0-10)
[2021-06-09 07:01] LABS: Anion Gap 13.7 (5-19); Blood Urea Nitrogen 31 mg/dL (6-20); Carbon Dioxide 20 mmol/L (22-29); Chloride 106 mmol/L (98-107); Potassium 4.7 mmol/L (3.5-5.1); Sodium 135 mmol/L (136-145)
[2021-06-09 07:02] LABS: Calcium 7.9 mg/dL (8.5-10.5); Glomerular Filtration Rate 109.6 mL/min (90-130); Glucose 133 mg/dL (65-115); NT Pro B Type Natriuretic Pept 33 pg/mL (0-125); Osmolality Calculated 288 mOsm/kg (285-295)
[2021-06-09] MEDS: pantoprazole 40 mg SDV 80 MG IVP (07:03)
[2021-06-09 07:13] LABS: INR 0.99 (0.8-1.2)
[2021-06-09 07:14] LABS: Partial Thromboplastin Time 24.1 SECONDS (23.9-36.7)
[2021-06-09 07:22] LABS: Alanine Aminotransferase 8 U/L (0-33); Albumin Level 3.4 g/dL (3.5-5.2); Alkaline Phosphatase 49 IU/L (35-105); Aspartate Amino Transferase 11 U/L (0-32); Globulin 1.8 g/dL (1.3-4.6); Total Bilirubin 0.2 mg/dL (0.15-1.2); Total Protein 5.2 g/dL (6.6-8.7)
[2021-06-09] MEDS: sodium chloride 0.9% 100 mL Bag 50 ML IV (07:25)
--- NOTE | 2021-06-09 07:29 | PC.PHAR ---
pt states she takes care of her own medications-pt states she took her one time dose of fluconazole on 06/04/21-pt states she is only taking the medications entered-pt states she was taking pantoprazole but hasnt taken for a month states she needs a new rx for it
--- NOTE | 2021-06-09 07:46 | PC.NURSE ---
Emergent blood transfusion was started by offgoing nurse; began at approximately 0640. Both units of PRBCs was completed at 0720. Vital signs stable throughout with no reaction noted.
--- NOTE | 2021-06-09 08:16 | ECG_ITS ---
[facility] Test Date: 2021-06-09 Pat Name: Tawny Merino Department: Room: 251 Gender: Female Jordan Worker: : 1980 Requested By: Venkatesh Mcadams Order Number: [id number] Afsaneh MD: Jordan Smith M.D. Measurements Intervals [place] Rate: 83 P: 48 [place]: 165 QRS: 36 QRSD: 76 T: 30 QT: 385 QTc: 454 Interpretive Statements SINUS RHYTHM NONSPECIFIC T-WAVE ABNORMALITY Compared to ECG 06/09/2021 06:18:14 Sinus tachycardia no longer present T-wave abnormality still present Electronically Signed On 06-10-2021 17:18:05 CDT by Jordan Smith M.D. [id number]
[2021-06-09 09:04] LABS: Hematocrit 25.6 % (37.0-47.0); Hemoglobin 7.8 g/dL (11.5-15.3)
[2021-06-09 09:15] LABS: Ferritin 15 ng/mL (15-150); Iron 12 ug/dL (37-145); Percent Saturation 3.5 % (20-50); Total Iron Binding Capacity 334 mcg/dl; Unsaturated Iron Binding 322 ug/dL (112-347)
--- NOTE | 2021-06-09 09:19 | PM.HP ---
Providers/Chief Complaint Admitting Physician: Ravi Cheney MD Primary Care Provider: COSMO Hawley Chief Complaint: WEAKNESS/SOB History of Present Illness Tawny Merino is a 41 year old female who presents to the emergency department feeling weak, dizzy, short of breath with any exertion, and having dark stools for the last 2 days. Not a large volume of stools. No bright red blood per stool. No significant nosebleeds. Last menstrual period 2 weeks ago and not heavy. She reports she had one episode of nausea and vomiting as well but no blood was noted in that. She has a history of iron deficiency anemia, for which she has received iron infusions in the past. EGD in the past demonstrated gastritis, hiatal hernia, gastric erosions in November. She was supposed to be on a proton pump inhibitor but ran out of this 1 month ago. She reports she has not been taking any significant anti-inflammatories lately. She did take 1 dose of Aleve 2 weeks ago when she was having some cramping with periods. She does have a history of menorrhagia, and hysterectomy is planned in the near future. She does smoke. She drinks a fair amount of caffeine in the form of sweet tea. In the emergency department she has been transfused 2 units of packed red blood cells, and had 80 mg of Protonix IV. Review of Systems General: Reports: 10 or more systems reviewed and unremarkable except in HPI and below Const: Denies: fever(s) Eyes: Denies: change in vision ENMT: Denies: throat pain Card: Denies: chest pain Resp: Reports: dyspnea GI: Reports: nausea, vomiting and melena; Denies: abdominal pain : Denies: flank pain Musc: Denies: neck pain Skin/Breast: Denies: rash Neuro: Denies: headache(s) Psych: Denies: anxiety Endo: Denies: polyuria Dimitri/Lymph: Denies: easy bruising All/Imm: Denies: urticaria Medications/Allergies Home Medications Medication Instructions Recorded Confirmed Last Taken Type PNV cmb#95-ferrous fumarate-FA 1 tab PO DAILY 06/09/21 06/09/21 Unknown History [ Multivitamins] acetaminophen [Tylenol Ex Str 1,000 mg PO Q4H PRN 06/09/21 06/09/21 Unknown History Rapid Release] fluticasone propionate 2 spray INTRANASAL DAILY PRN 06/09/21 06/09/21 Unknown History Allergies Allergy/AdvReac Type Severity Reaction Status Date / Time Sulfa (Sulfonamide Allergy ALGY-Anaphy Verified 06/09/21 07:29 Antibiotics) laxis PFSH Acute PFSH: Medical History (Updated 06/09/21 @ 09:28 by Ravi Cheney MD) Gastritis Hiatal hernia History of gastritis History of peptic ulcer disease Hypertension Iron deficiency anemia Nephrolithiasis NSAID long-term use Surgical History History of abdominal surgery Multiple ventral hernia repairs with mesh Hx of cholecystectomy Tubal ligation status Family History Father Dementia Mother Dementia Social History (Updated 06/09/21 @ 09:23 by Ravi Cheney MD) Smoking and tobacco status: current some day smoker Alcohol intake: never Housing: House Vitals/I&O/Wt Last Vital Signs Temp 98.8 F 06/09/21 08:02 Pulse 84 06/09/21 08:45 Resp 23 H 06/09/21 08:45 BP 144/102 06/09/21 08:45 Pulse Ox 100 06/09/21 08:30 06/08/21 06/09/21 06/09/21 22:59 06:59 14:59 Intake Total 0 / 0 700 / 700 Balance 0 / 0 700 / 700 Weight last 48 hrs Weight 95.254 kg Physical Exam Narrative: EXAM NARRATIVE: General exam is a white female, no distress HEENT: Pupils equally round. Oropharynx clear. Neck is supple no lymphadenopathy or thyromegaly Cardiovascular regular rate and rhythm without murmur Lungs clear Abdomen is soft. Slight tenderness epigastric/right upper quadrant area. No rebound. No obvious organomegaly. exam is deferred Extremities no cyanosis clubbing or edema Cap refill brisk Skin no rash Data : 06/09/21 09:00 06/09/21 06:18 Other data: Initial hemoglobin 4.7, platelet count 305. After 2 units of blood her hemoglobin is 7.8. INR normal CMP, liver tests essentially normal. Iron saturation 3.5% Rapid Covid negative Chest x-ray no infiltrate Previous CT abdomen pelvis and transvaginal ultrasound demonstrated fatty liver, uterine fibroid, hiatal hernia A&P Assessment and plan (1) Anemia: Rather precipitous drop from May 28 when her hemoglobin was 11.2, down to 4.7 on arrival to the emergency department. This is most likely secondary to GI bleeding, and with her melanotic stools upper GI bleeding would be the source. She has prior history of gastritis and gastric erosions as well as hiatal hernia on EGD done in November. With her running out of proton pump inhibitor 1 month ago, she likely has recurrence. Part of this picture is multifactorial, with her history of iron deficiency anemia, hiatal hernia, menorrhagia. I have confirmed iron deficiency anemia again and iron infusion will be given as well. Status: Acute (2) GI bleeding: Protonix 40 mg IV every 12 hours N.p.o. Surgical consultation. They can review whether another EGD needs to be performed acutely for therapeutic purposes. Serial hemoglobins Avoid anti-inflammatories, caffeine, nicotine Status: Acute (3) Tobacco dependency: Encourage abstinence from tobacco Status: Acute Additional A&P Information Full code SCDs for DVT prophylaxis, anticoagulation contraindicated Check serum hCG Attestations Medical Necessity Statement*: Will need less than 2 midnight stay for evaluation and treatment of anemia Coding Level of Care Code Acute Assistant Elementary Teacher for Chg Fwd Diagnoses Anemia D64.9 GI bleeding K92.2 Tobacco dependency F17.200
[2021-06-09 10:21] LABS: HCG, Serum Qual Negative (Negative)
[2021-06-09] MEDS: iron sucrose 200 MG in sodium chloride 0.9% (100 ml) 100 ML 220 MG IV (10:50)
--- NOTE | 2021-06-09 12:11 | PM.CONSULT ---
Providers/Reason For Consult Consulting Physician/Specialty*: General Surgery Dr. Chong Reason for Consult*: Melena Attending Physician: Ravi Cheney MD Primary Care Provider: COSMO Hawley History of Present Illness History of Present Illness Tawny Merino is a 41 year old female who presented to the emergency with 1 day history of black stools. Patient has been worked up for iron deficiency anemia and had previously received iron transfusions. She states that she had some mild epigastric pain but denies any nausea, vomiting and apparently was constipated yesterday. She states that she had black stools yesterday but denies any hematemesis or hematochezia. She is due for hysterectomy with Dr. Alanis given her history of heavy periods which most likely was contributing to her iron deficiency anemia. Review of Systems General: Reports: 10 or more systems reviewed and unremarkable except in HPI and below Meds/Allergies Home Medications and Allergies Home Medications Medication Instructions Recorded Confirmed Last Taken Type PNV cmb#95-ferrous fumarate-FA 1 tab PO DAILY 06/09/21 06/09/21 Unknown History [ Multivitamins] acetaminophen [Tylenol Ex Str 1,000 mg PO Q4H PRN 06/09/21 06/09/21 Unknown History Rapid Release] fluticasone propionate 2 spray INTRANASAL DAILY PRN 06/09/21 06/09/21 Unknown History Allergies Allergy/AdvReac Type Severity Reaction Status Date / Time Sulfa (Sulfonamide Allergy ALGY-Anaphy Verified 06/09/21 07:29 Antibiotics) laxis Current Medications Current Medications Generic Name Dose Route Start Last Admin Trade Name Freq PRN Reason Stop Dose Admin Sodium Chloride 1,000 mls @ 75 mls/hr 06/09/21 09:47 06/09/21 10:25 Sodium Chloride 0.9% IV Not Given .[id number] DANIEL PFSH Acute PFSH: Medical History (Updated 06/09/21 @ 12:12 by Link Chong MD) Gastritis Hiatal hernia History of gastritis History of peptic ulcer disease Hypertension Iron deficiency anemia Nephrolithiasis Surgical History History of abdominal surgery Multiple ventral hernia repairs with mesh Hx of cholecystectomy Tubal ligation status Family History Father Dementia Mother Dementia Social History (Updated 06/09/21 @ 09:23 by Ravi Cheney MD) Smoking and tobacco status: current some day smoker Alcohol intake: never Housing: House Vitals/I&O/Wt Last Vital Signs Temp 98.5 F 06/09/21 11:54 Pulse 80 06/09/21 11:54 Resp 17 06/09/21 11:54 BP 132/78 06/09/21 11:54 Pulse Ox 99 06/09/21 11:54 06/08/21 06/09/21 06/09/21 22:59 06:59 14:59 Intake Total 0 / 0 700 / 700 Balance 0 / 0 700 / 700 Weight last 48 hrs Weight 210 lb Physical Exam Narrative: EXAM NARRATIVE: HEENT: Normocephalic Eye: Sclera /conjunctiva normal Respiratory and chest: Bilateral clear breath sounds on auscultation Cardiovascular: Normal S1 and S2 heart sounds Abdomen: Soft to palpation, Mildly tender in the epigastric region, no guarding or rigidity Neurological: Oriented to place person and time Skin: Intact, no lesions appreciated on gross exam A&P Assessment and plan (1) Melena: 41-year-old female with history who presents with 1 day history of melena. Patient denies any hematemesis or hematochezia. She is due for hysterectomy with Dr. Alanis next week. She responded to 2 units of PRBC and her current hemoglobin is up to 7.8 EGD under MAC today PPI therapy Status: Acute Consult Attestations Medical Necessity Statement: As per attending physician Coding Level of Care Code Acute Machine Shop Repair Technician for [facility] Sean Diagnoses Melena K92.1
--- NOTE | 2021-06-09 12:20 | ANES.PREANE2 ---
Pre-Anesthetic Assessment Pre-Anesthetic Assessment: Height/Weight: Height 1.5 m Weight 95.254 kg Temp Pulse Resp BP Pulse Ox 98.3 F 93 18 133/84 99 06/09/21 12:17 06/09/21 12:17 06/09/21 12:17 06/09/21 12:17 06/09/21 12:17 Preop Diagnosis: GI bleed Proposed Procedure: Operation Date: 06/09/21 12:30 Proposed Procedures p EGD(Not Applicable) - Link Chong MD Was Beta Bernarda taken within 24 hours: N/A Was Clonidine taken within 24 hours: N/A Social: Social History: No alcohol and No tobacco Exam: Pre-Anes Outpt Exam: alert, oriented x 3 and clear to auscultation bilaterally Airway: Submandibular: WNL Cervical ROM: WNL MP: 2 Dentition: Full History/ROS: No significant complaints Pulmonary: Pulmonary: None reported CV/HEM: CV/HEM: None reported : : None reported Hepatic: Hepatic: None reported GI: GI: None reported Metabolic: Metabolic: None reported Musc/skel: Musc/skel: None reported Neuropsych: Neuropsych: None reported Anesthetic Plan: ASA status: 2 Anesthesia: MAC Risk of > 500 ml blood loss (7ml/kg in children): No Meds/Allergies Current Medications: Current Medications Generic Name Dose Route Start Last Admin Trade Name Freq PRN Reason Stop Dose Admin Sodium Chloride 1,000 mls @ 75 ml s/hr 06/09/21 09:47 06/09/21 10:25 Sodium Chloride 0.9% IV Not Given .[id number] [facility] PFSH Anesthesia PFSH: Medical History (Updated 06/09/21 @ 12:12 by Link Chong MD) Gastritis Hiatal hernia History of gastritis History of peptic ulcer disease Hypertension Iron deficiency anemia Nephrolithiasis Surgical History History of abdominal surgery Multiple ventral hernia repairs with mesh Hx of cholecystectomy Tubal ligation status Family History Father Dementia Mother Dementia Social History (Updated 06/09/21 @ 09:23 by Ravi Cheney MD) Smoking and tobacco status: current some day smoker Alcohol intake: never Housing: House Data Anesthesia CBC & Chem 7: 06/09/21 09:00 06/09/21 06:18 Other Labs: Laboratory Results - last 48 hr 06/09/21 06/09/21 06/09/21 06:00 06:00 06:18 WBC 14.1 H RBC 1.94 L Hgb 4.7 L* Hct 16.3 L* MCV 84.0 MCH 24.2 L MCHC 28.8 L RDW 16.2 H Plt Count 305 MPV 10.6 H Neut % (Auto) 70.9 Lymph % (Auto) 17.5 [place] % (Auto) 7.7 Eos % (Auto) 2.6 Baso % (Auto) 0.3 Neut # (Auto) 9.98 H Lymph # (Auto) 2.5 [place] # (Auto) 1.1 H Eos # (Auto) 0.4 Baso # (Auto) 0.0 Nucleated RBC % (auto) 1.4 Nucleated RBCs # 0.2 PT 13.40 INR 0.99 APTT 24.1 Sodium Potassium Chloride Carbon Dioxide Anion Gap BUN Creatinine GFR Calculation Glucose Calculated Osmolality Calcium Iron TIBC % Saturation Unsat Iron Binding Ferritin Total Bilirubin 0.2 Direct Bilirubin 0.20 AST 11 ALT 8 Alkaline Phosphatase 49 Troponin T Baseline NT-Pro-B Natriuret Pep Total Protein 5.2 L Albumin 3.4 L Globulin 1.8 HCG, Qual SARS-CoV-2 Ag (Rapid) Blood Type Rho(D) Type Antibody Screen Crossmatch 06/09/21 06/09/21 06/09/21 06:18 06:18 06:20 WBC RBC Hgb Hct MCV MCH MCHC RDW Plt Count MPV Neut % (Auto) Lymph % (Auto) [place] % (Auto) Eos % (Auto) Baso % (Auto) Neut # (Auto) Lymph # (Auto) [place] # (Auto) Eos # (Auto) Baso # (Auto) Nucleated RBC % (auto) Nucleated RBCs # PT INR APTT Sodium 135 L Potassium 4.7 Chloride 106 Carbon Dioxide 20 L Anion Gap 13.7 BUN 31 H Creatinine 0.6 GFR Calculation 109.6 Glucose 133 H Calculated Osmolality 288 Calcium 7.9 L Iron TIBC % Saturation Unsat Iron Binding Ferritin Total Bilirubin Direct Bilirubin AST ALT Alkaline Phosphatase Troponin T Baseline 6 NT-Pro-B Natriuret Pep 33 Total Protein Albumin Globulin HCG, Qual SARS-CoV-2 Ag (Rapid) Negative Blood Type Rho(D) Type Antibody Screen Crossmatch 06/09/21 06/09/21 06/09/21 06:20 06:36 09:00 WBC RBC Hgb 7.8 L D Hct 25.6 L D MCV MCH MCHC RDW Plt Count MPV Neut % (Auto) Lymph % (Auto) [place] % (Auto) Eos % (Auto) Baso % (Auto) Neut # (Auto) Lymph # (Auto) [place] # (Auto) Eos # (Auto) Baso # (Auto) Nucleated RBC % (auto) Nucleated RBCs # PT INR APTT Sodium Potassium Chloride Carbon Dioxide Anion Gap BUN Creatinine GFR Calculation Glucose Calculated Osmolality Calcium Iron 12 L TIBC 334 % Saturation 3.5 L Unsat Iron Binding 322 Ferritin 15 Total Bilirubin Direct Bilirubin AST ALT Alkaline Phosphatase Troponin T Baseline NT-Pro-B Natriuret Pep Total Protein Albumin Globulin HCG, Qual SARS-CoV-2 Ag (Rapid) Blood Type O Positive Rho(D) Type Positive Antibody Screen Negative Crossmatch See Detail 06/09/21 09:45 WBC RBC Hgb Hct MCV MCH MCHC RDW Plt Count MPV Neut % (Auto) Lymph % (Auto) [place] % (Auto) Eos % (Auto) Baso % (Auto) Neut # (Auto) Lymph # (Auto) [place] # (Auto) Eos # (Auto) Baso # (Auto) Nucleated RBC % (auto) Nucleated RBCs # PT INR APTT Sodium Potassium Chloride Carbon Dioxide Anion Gap BUN Creatinine GFR Calculation Glucose Calculated Osmolality Calcium Iron TIBC % Saturation Unsat Iron Binding Ferritin Total Bilirubin Direct Bilirubin AST ALT Alkaline Phosphatase Troponin T Baseline NT-Pro-B Natriuret Pep Total Protein Albumin Globulin HCG, Qual Negative SARS-CoV-2 Ag (Rapid) Blood Type Rho(D) Type Antibody Screen Crossmatch Cardiac Studies: No Data to Display
[2021-06-09] MEDS: sodium chloride 0.9% 1,000 ML 30 ML IV (12:24)
[2021-06-09] MEDS: pantoprazole 40 mg SDV IVP (16:52)
[2021-06-09] MEDS: acetaminophen 325 mg Tablet 650 MG PO (16:54)
[2021-06-09 16:55] LABS: Hematocrit 24.1 % (37.0-47.0); Hemoglobin 7.9 g/dL (11.5-15.3)
[2021-06-10] VITALS: BP 128/76; PULSE 62; RESP 17; TEMP 37.1; O2SAT 95
[2021-06-10] MEDS: sodium chloride 0.9% 1,000 ML 75 ML IV (00:15)
[2021-06-10 04:00] VITALS: BP 128/68; PULSE 83; RESP 17; TEMP 37; O2SAT 97
[2021-06-10] MEDS: pantoprazole 40 mg SDV IVP (05:34)
[2021-06-10] MEDS: ondansetron 2 mg/ML SDV 2 mL 4 MG IVP (05:42)
[2021-06-10] MEDS: HYDROmorphone 1 mg/mL INJ 1 mL 0.5 MG IVP (05:42)
[2021-06-10 06:18] LABS: Basophils # 0.1 10^3/uL (0.0-0.1); Basophils % 0.8 %; Eosinophils # 0.3 10^3/uL (0.0-0.8); Eosinophils % 2.6 %; Hematocrit 24.3 % (37.0-47.0); Lymphocytes % 20.4 %; Mean Corpuscular Volume 87.4 fl (81-99); Mean Platelet Volume 10.8 fL (7.4-10.4); Monocytes # 0.8 10^3/uL (0.2-0.9); Monocytes % 8.3 %; Neutrophils # 6.35 10^3/uL (1.8-7.7); Neutrophils % 64.5 %; Nucleated Red Blood Cells # 0.3 /100WBC; Nucleated Red Blood Cells % 2.6 %; Platelet Count 223 10^3/cmm (130-400); Red Blood Count 2.78 10^6/uL (4.1-5.3); Red Cell Distribution Width 16.4 % (12.1-15.1); White Blood Count 9.9 10^3/uL (4.0-10.0)
[2021-06-10 06:58] LABS: Hemoglobin 7.5 g/dL (11.5-15.3); Mean Corpuscular HGB Conc 30.9 g/dL (30.0-36.0)
[2021-06-10 07:40] LABS: Alanine Aminotransferase 7 U/L (0-33); Albumin Level 3.2 g/dL (3.5-5.2); Aspartate Amino Transferase 10 U/L (0-32); Blood Urea Nitrogen 13 mg/dL (6-20); Calcium 8.1 mg/dL (8.5-10.5); Carbon Dioxide 19 mmol/L (22-29); Chloride 107 mmol/L (98-107); Globulin 2.2 g/dL (1.3-4.6); Glomerular Filtration Rate 109.6 mL/min (90-130); Glucose 96 mg/dL (65-115); Osmolality Calculated 282 mOsm/kg (285-295); Total Bilirubin 0.3 mg/dL (0.15-1.2); Total Protein 5.4 g/dL (6.6-8.7)
[2021-06-10 07:48] VITALS: BP 133/84; PULSE 88; RESP 17; TEMP 36.8; O2SAT 100
[2021-06-10 07:49] LABS: Alkaline Phosphatase 49 IU/L (35-105); Sodium 136 mmol/L (136-145)
--- NOTE | 2021-06-10 08:14 | P.DS_ITS ---
Discharge Providers Date of Admission: 06/09/21 08:58 Date of Discharge: June 10, 2021 Attending Provider at Admission: Ravi Cheney MD Attending Provider at Discharge: Ravi Cheney MD Primary Care Provider: COSMO Hawley Diagnoses at Discharge Discharge Diagnosis (1) Melena: Status: Acute Reason for Visit Reason for Visit: WEAKNESS/SOB Hospital Course Hospital Course Tawny is a 41-year-old white female who presented to the hospital with dizziness, melanotic stool. She had a history of iron deficiency anemia as well as gastric erosions and gastritis. She had recently run out of her Protonix about a month ago. She was found to be significantly anemic with a hemoglobin of 4.7. Hemoccult stool was positive. She was immediately transfused 2 units of packed red blood cells with improvement of her hemoglobin to 7.8. She was t aken for EGD the same day, which demonstrated gastritis and pyloric ulcer with no evidence of active bleeding. She was monitored until the following day after start of regular diet and had no evidence of recurrence of bleeding. Iron studies were done demonstrating significant iron deficiency and she was given an iron transfusion in the form of Venofer on June 09 as well as June 10. On June 10 with her significant improvement of symptoms, stable hemoglobin she was discharged home on Protonix twice daily and to follow-up with her primary care provider in 3 to 5 days for a CBC. She already has follow-up in the near future with her core java software engineer, as well as in class special education teacher. She does have history of menorrhagia but no severe bleeding that her last period 2 weeks ago. Physical Exam Narrative: EXAM NARRATIVE: General exam no distress Neck supple Cardiovascular regular rate and rhythm without murmur Lungs clear Abdomen is soft, positive bowel sounds Extremities no cyanosis clubbing or edema Discharge Data Data Completed and Pending: Completed Studies During Hospitalization Category Date Time Status XR chest 1V leona ble [id number] Stat Exams 06/09/21 06:16 Completed Labs from last 24 hours 06/10/21 06/10/21 06/09/21 04:36 04:36 16:00 WBC 9.9 RBC 2.78 L Hgb 7.5 L 7.9 L Hct 24.3 L 24.1 L MCV 87.4 MCH 27.0 L D MCHC 30.9 D RDW 16.4 H Plt Count 223 MPV 10.8 H Neut % (Auto) 64.5 Lymph % (Auto) 20.4 [place] % (Auto) 8.3 Eos % (Auto) 2.6 Baso % (Auto) 0.8 Neut # (Auto) 6.35 Lymph # (Auto) 2.0 [place] # (Auto) 0.8 Eos # (Auto) 0.3 Baso # (Auto) 0.1 Nucleated RBC % (a uto) 2.6 Nucleated RBCs # 0.3 Sodium 136 Potassium 4.0 Chloride 107 Carbon Dioxide 19 L Anion Gap 14.0 BUN 13 Creatinine 0.6 GFR Calculation 109.6 Glucose 96 Calculated Osmolal ity 282 L Calcium 8.1 L Iron TIBC % Saturation Unsat Iron Binding Ferritin Total Bilirubin 0.3 AST 10 ALT 7 Alkaline Phosphata se 49 Total Protein 5.4 L Albumin 3.2 L Globulin 2.2 HCG, Qual 06/09/21 06/09/21 06/09/21 09:45 09:00 06:20 WBC RBC Hgb 7.8 L D Hct 25.6 L D MCV MCH MCHC RDW Plt Count MPV Neut % (Auto) Lymph % (Auto) [place] % (Auto) Eos % (Auto) Baso % (Auto) Neut # (Auto) Lymph # (Auto) [place] # (Auto) Eos # (Auto) Baso # (Auto) Nucleated RBC % (a uto) Nucleated RBCs # Sodium Potassium Chloride Carbon Dioxide Anion Gap BUN Creatinine GFR Calculation Glucose Calculated Osmolal ity Calcium Iron 12 L TIBC 334 % Saturation 3.5 L Unsat Iron Binding 322 Ferritin 15 Total Bilirubin AST ALT Alkaline Phosphata se Total Protein Albumin Globulin HCG, Qual Negative Vitals: Last Vital Signs Temp 98.3 F 06/10/21 07:48 Pulse 88 06/10/21 07:48 Resp 17 06/10/21 07:48 BP 133/84 06/10/21 07:48 Pulse Ox 100 06/10/21 07:48 Discharge Plan Discharge Patient Disposition: Home Condition: Stable Prescriptions: New pantoprazole [Protonix] 40 mg tablet,delayed release (DR/EC) 40 mg PO BID Qty: 60 RF: 0 Continued Tylenol Ex Str Rapid Release 500 mg Tablet 1,000 mg PO Q4H PRN (Reason: Pain) RF: 0 fluticasone propionate 50 mcg/actuation spray,suspension 2 spray intranasal DAILY PRN (Reason: Allergy Symptoms) RF: 0 Multivitamins 28 mg iron- 800 mcg Tablet 1 tab PO DAILY RF: 0 Discharge Orders: Discharge Order (Routine); Ordered 06/10/21 Ordered By: Ravi Cheney Referrals: Rhiannon Amaya FNP [Primary Care Provider] - 4-7 days (CBC on follow-up) Patient Instructions: GI Discharge Instructions, Opioid Safety Activity Restrictions/Additional Instructions: Return for any recurrence of bleeding Follow-up with primary care provider 3 to 5 days with CBC Keep your already scheduled follow-up with hematology, gynecology Stop smoking Hold discharge until after iron infusion is complete. Discharge Attestations Time Spent in Discharge Care*: greater than 30 min Quality Metrics Clinical Quality Measures During this hospital stay, did patient experience: None Coding Level of Care Code Acute [facility] note Diagnoses Melena K92.1
[2021-06-10] MEDS: iron sucrose 200 MG in sodium chloride 0.9% (100 ml) 100 ML 220 MG IV (09:14)
--- NOTE | 2021-06-10 10:18 | PC.CHAP ---
Pastoral Care Encounter/Spiritual Assessment Type of Contact [x] Declined investment fund manager visit [] Patient/Family/Request visit [] Outpatient visit [] Follow-up visit [] Physician referral [] Code/Alert [] Routine visit [] Staff referral [] Actively dying [] Patient sleeping [] Family support [] [] Out of room [] Palliative care [] [] Receiving care in room [] Pre-surgical visit [] Trauma [] Long length of stay [] ICU visit [] Other: Relational/Emotional Strength [] Patient feels connected with others/family/visitors/staff [] Distress [] Loneliness/isolation [] Abandonment Spirituality of Patient [] Person of Ksenia [] Attends Scientologist of their Ksenia [] Believes in Prayer [] Reads Bible or Congregation materials [] There are Spiritual issues to be addressed Payroll Consultant Interventions [] Prayer [] Active listening [] Non-anxious presence [] Spiritual/emotional support [] Crisis/trauma care [] Spiritual counseling [] Bereavement support [] Provided bereavement packet [] Provided Bible/devotional materials [] Provided toy/stuffed animal, coloring book to patient or family member [] Provided Communion [] Anointing/[place] [] Salvation [] Completed spiritual assessment [] Other: Impact on Illness or Injury [] Angry [] Fearful [] Anxious [] Often cries [] Exhaustion [] Unable to work [] Unable to attend confucianist [] Unable to walk/stand [] Unable to read [] Unable to drive [] Unable to eat/drink [] Unable to sleep [] Unable to be with family [] Patient intubated [] Other: Summary Declined investment fund manager visit Time spent with patient 5 mins
[2021-06-10 11:49] VITALS: BP 133/84; PULSE 88; RESP 17; TEMP 36.8; O2SAT 100
== END 2021-06-10 11:15 | disposition home or self-care (01) ==
LOC: ER 07:44 → MEDSURG 15:37
PROVIDERS: Surgery; Admitting Provider Internal Medicine; Emergency Provider Emergency Medicine; PCP Nurse Practitioner Family; Visit Provider Internal Medicine
PROC: 0DJ08ZZ Inspection of Upper Intestinal Tract, Via Natural or Artificial Opening Endoscopic (ICD-10-PCS; CPT 43235; principal; 2021-06-09 12:30)
DX: D50.9 Iron deficiency anemia, unspecified (principal); K44.9 Diaphragmatic hernia without obstruction or gangrene; K29.70 Gastritis, unspecified, without bleeding; K25.9 Gastric ulcer, unspecified as acute or chronic, without hemorrhage or perforation; I10 Essential (primary) hypertension; F17.200 Nicotine dependence, unspecified, uncomplicated; Z79.1 Long term (current) use of non-steroidal anti-inflammatories (NSAID)
CPT/HCPCS: 36415; 43235; 71045; 80048; 80053; 80076; 82728; 83540; 83550; 83880; 84484; 84703; 85014; 85018; 85025; 85610; 85730; 86850; 86900; 86920; 87426; 93005; 96365; 96367; 96375; 99285; C9113; G0378; J0610; J1170; J1756; J2405; J2704; J7030; J7040; P9016

== ENCOUNTER → 2021-06-11 08:11 | Outpatient (BNVA) | payer OTHER, BC, MEDICAID, SELFPAY | PROVIDERS: PCP Nurse Practitioner Family; Visit Provider Obstetrics & Gynecology | DX: N93.9 Abnormal uterine and vaginal bleeding, unspecified (principal); Z20.822 Contact with and (suspected) exposure to COVID-19 | CPT/HCPCS: 87635 ==

== ENCOUNTER 2021-06-14 14:27 | Outpatient (CLI) | payer OTHER, BC, MEDICAID, SELFPAY ==
[2021-06-14] MEDS: ferric carboxy (IVPB) 750 MG in sodium chloride 0.9% (100 ml) 100 ML 460 MG IV (15:25)
[2021-06-14] MEDS: sodium chloride 0.9% (100 ml) 100 ML 75 ML (15:25)
== END 2021-06-14 14:28 | disposition home or self-care (01) ==
LOC: ONCMED 14:30
PROVIDERS: PCP Nurse Practitioner Family; Visit Provider Internal Medicine Medical Oncology
DX: D50.9 Iron deficiency anemia, unspecified (principal)
CPT/HCPCS: 96365; J1439

== ENCOUNTER 2021-06-16 09:05 | Observation (INO) | payer OTHER, BC, MEDICAID, SELFPAY ==
[2021-06-14 12:09] VITALS: BMI 42.4
--- NOTE | 2021-06-14 12:33 | ANES.PREANE2 ---
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 congenital Hepatic: Comments: fatty liver GI: GI: Hiatus hernia and PUD Metabolic: Metabolic: Morbid obesity Anesthetic Plan: ASA status: 3 Anesthesia: General Risk of > 500 ml blood loss (7ml/kg in children): No PFSH Anesthesia PFSH: Medical History Gastritis Hiatal hernia History of gastritis History of peptic ulcer disease Hypertension Iron deficiency anemia Nephrolithiasis Surgical History History of abdominal surgery Multiple ventral hernia repairs with mesh Hx of cholecystectomy Tubal ligation status Family History (Updated 06/14/21 @ 08:12 by Lara Michel RN) Father Dementia Diabetes Hyperlipidemia Hypertension Stroke Mother Dementia Diabetes Hyperlipidemia Hypertension Thyroid condition Family/Other Breast cancer maternal aunts x3, age onset 74,25 and 50 Uterine cancer maternal aunt age 25 Ovarian cancer maternal aunt at age 25 Denies family history of Colon cancer Clotting disorder Heart disease Anesthesia complication Bleeding disorder Social History (Updated 06/14/21 @ 08:12 by Lara Michel, MONICA) Smoking and tobacco status: current some day smoker cigarettes [ Other cigarette details: 1 cigarette per day ] Alcohol intake: never Substance/Drug Use: never Housing: House Data Anesthesia CBC & Chem 7: 06/14/21 12:25 06/14/21 12:25 Cardiac Studies: No Data to Display
[2021-06-14 12:34] LABS: Add Urine Microscopic? NO; Charge for UA Resulting for Rev
[2021-06-14 12:42] LABS: Basophils % 0.5 %; Eosinophils # 0.2 10^3/uL (0.0-0.8); Eosinophils % 2.4 %; Hematocrit 29.4 % (37.0-47.0); Hemoglobin 8.8 g/dL (11.5-15.3); Lymphocytes # 1.8 10^3/uL (0.8-4.8); Lymphocytes % 22.3 %; Mean Corpuscular HGB Conc 29.9 g/dL (30.0-36.0); Mean Corpuscular Hemoglobin 27.2 pg (28.0-34.0); Mean Corpuscular Volume 90.7 fl (81-99); Mean Platelet Volume 10.5 fL (7.4-10.4); Monocytes # 0.9 10^3/uL (0.2-0.9); Monocytes % 11.1 %; Neutrophils # 5.03 10^3/uL (1.8-7.7); Neutrophils % 62.6 %; Nucleated Red Blood Cells # 0.1 /100WBC; Nucleated Red Blood Cells % 0.6 %; Platelet Count 233 10^3/cmm (130-400); Red Blood Count 3.24 10^6/uL (4.1-5.3); Red Cell Distribution Width 20.1 % (12.1-15.1)
[2021-06-14 12:56] LABS: Alanine Aminotransferase 11 U/L (0-33); Albumin Level 3.8 g/dL (3.5-5.2); Alkaline Phosphatase 55 IU/L (35-105); Anion Gap 13.9 (5-19); Aspartate Amino Transferase 13 U/L (0-32); Blood Urea Nitrogen 12 mg/dL (6-20); Calcium 8.6 mg/dL (8.5-10.5); Carbon Dioxide 22 mmol/L (22-29); Chloride 103 mmol/L (98-107); Globulin 2.8 g/dL (1.3-4.6); Glomerular Filtration Rate 91.8 mL/min (90-130); Glucose 91 mg/dL (65-115); Osmolality Calculated 279 mOsm/kg (285-295); Potassium 3.9 mmol/L (3.5-5.1); Sodium 135 mmol/L (136-145); Total Bilirubin 0.4 mg/dL (0.15-1.2); Total Protein 6.6 g/dL (6.6-8.7)
[2021-06-14 13:01] LABS: Urine Appearance Clear (CLEAR); Urine Color Yellow (Yellow)
[2021-06-14 13:02] LABS: Bilirubin Urine Neg (Negative); Blood Urine Neg (Negative); Glucose Urine UA Norm (Normal); Ketones Urine Negative (Negative); Leukocyte Esterase Urine Negative (Negative); Nitrate Urine Negative (Negative); Protein Urine Neg (Negative); Urobilinogen Urine Norm (Negative); pH Urine 5 (5-7)
[2021-06-16] VITALS (16 sets, daily range): BP systolic 107–158; BP diastolic 69–119; PULSE 78–100; RESP 14–21; TEMP 36.4–36.8; O2SAT 93–100; BMI 42.4
[2021-06-16] MEDS: sodium chloride 0.9% 500 ML IV (06:15)
[2021-06-16] MEDS: scopolamine 1.5 Patch 1 PATCH TRANSDERMA (06:23)
[2021-06-16 06:27] LABS: OR HCG Qualitative Urine Negative (Negative)
--- NOTE | 2021-06-16 06:30 | ANES.PAUD2 ---
Pre-Anesthetic Update Pre-Anesthetic Assessment: Date of Surgery/Procedure: 06/16/21 Preop Diagnosis: GI bleed Proposed Procedure: Operation Date: 06/16/21 07:00 Proposed Procedures p Total Vaginal Hysterectomy(Not Applicable) - Wilfredo Alanis MD Any changes to Pre-Anesthetic Assessment?: No Last Intake: Intake Last Liquid Date 06/15/21 Last Liquid Time 19:00 Last Solid Date 06/15/21 Last Solid Time 19:00 Labs Last 48hrs: Laboratory Results - last 48 hr 06/14/21 06/14/21 06/14/21 12:25 12:25 12:25 WBC 8.0 RBC 3.24 L Hgb 8.8 L Hct 29.4 L MCV 90.7 MCH 27.2 L MCHC 29.9 L RDW 20.1 H Plt Count 233 MPV 10.5 H Neut % (Auto) 62.6 Lymph % (Auto) 22.3 [place] % (Auto) 11.1 Eos % (Auto) 2.4 Baso % (Auto) 0.5 Neut # (Auto) 5.03 Lymph # (Auto) 1.8 [place] # (Auto) 0.9 Eos # (Auto) 0.2 Baso # (Auto) 0.0 Nucleated RBC % (a uto) 0.6 Nucleated RBCs # 0.1 Sodium 135 L Potassium 3.9 Chloride 103 Carbon Dioxide 22 Anion Gap 13.9 BUN 12 Creatinine 0.7 GFR Calculation 91.8 Glucose 91 Calculated Osmolal ity 279 L Calcium 8.6 Total Bilirubin 0.4 AST 13 ALT 11 Alkaline Phosphata se 55 Total Protein 6.6 Albumin 3.8 Globulin 2.8 Urine Color Yellow Urine Appearance Clear Urine pH 5 Ur Specific Gravit y 1.020 Urine Protein Neg Urine Glucose (UA) Norm Urine Ketones Negative Urine Blood Neg Urine Nitrate Negative Urine Bilirubin Neg Urine Urobilinogen Norm Ur Leukocyte Esmer ase Negative Urine HCG, Qual Blood Type Rho(D) Type Antibody Screen Crossmatch 06/14/21 06/16/21 12:25 05:44 WBC RBC Hgb Hct MCV MCH MCHC RDW Plt Count MPV Neut % (Auto) Lymph % (Auto) [place] % (Auto) Eos % (Auto) Baso % (Auto) Neut # (Auto) Lymph # (Auto) [place] # (Auto) Eos # (Auto) Baso # (Auto) Nucleated RBC % (a uto) Nucleated RBCs # Sodium Potassium Chloride Carbon Dioxide Anion Gap BUN Creatinine GFR Calculation Glucose Calculated Osmolal ity Calcium Total Bilirubin AST ALT Alkaline Phosphata se Total Protein Albumin Globulin Urine Color Urine Appearance Urine pH Ur Specific Gravit y Urine Protein Urine Glucose (UA) Urine Ketones Urine Blood Urine Nitrate Urine Bilirubin Urine Urobilinogen Ur Leukocyte Esmer ase Urine HCG, Qual Negative Blood Type O Positive Rho(D) Type Positive Antibody Screen Negative Crossmatch See Detail Vitals: Temperature 98 F 06/16/21 06:01 Temperature Source Temporal Artery S can 06/16/21 06:01 Pulse Rate 99 06/16/21 06:01 Respiratory Rate 18 06/16/21 06:01 Blood Pressure 158/119 06/16/21 06:01 Blood Pressure Deepa n 132 06/16/21 06:01 Pulse Oximetry 99 06/16/21 06:01 Oxygen Delivery Me thod 06/16/21 06:01 Exam: Pre-Anes Outpt Exam: alert, oriented x 3, clear to auscultation bilaterally and regular rate & rhythm Cardiac Studies: No Data to Display
[2021-06-16] MEDS: sodium chloride 0.9% 1,000 ML 30 ML IV (06:50)
--- NOTE | 2021-06-16 06:50 | W.PM.OPSUD ---
Surgery/Procedure H&P Update DATE OF PROCEDURE: June 16, 2021 DATE H&P PERFORMED: 06/14/21 H&P UPDATE INFORMATION: I have reviewed H&P completed within last 30 days, I have examined patient prior to procedure and No changes to prior documentation PREOP DIAGNOSIS: GI bleed PLANNED PROCEDURE: Operation Date: 06/16/21 07:00 Proposed Procedures p Total Vaginal Hysterectomy(Not Applicable) - Wilfredo Alanis MD
--- NOTE | 2021-06-16 06:55 | SUR.PREOP ---
[id number] spoke with eliceo in blood bank and stated we had 2 units available for her and relayed info to charge nurse corbin medel,rn to tell dr rosenbaum
--- NOTE | 2021-06-16 08:56 | PM.OP ---
Operative Report Date of procedure: June 16, 2021 Pre-op Diagnosis: AUB, Anemia Post-op diagnosis: same Procedure Done: Total vaginal hysterectomy Specimens removed/disposition: Uterus and left and right fallopian tubes Surgeon: Wilfredo Alanis MD Anesthesia: General Estimated blood loss (mL): 200 IV fluids (mL): 900 Urine output (mL): 300 Complications: None Condition: stable Disposition: PACU Procedure: After informed consent and risks, benefits, indications and alternatives reviewed with the patient was taken to the operating room. The patient was placed in dorsal lithotomy position prepped, and draped in the usual sterile fashion. The pre-procedure timeout verifying the correct patient, procedure, site and side, could not requirements was performed and acknowledge by the OR team. A Barajas catheter was placed. A Bookwalter vaginal retractor was placed into the vagina in usual manner visualize the cervix. Cervix was grasped with a single tooth tenaculum and circumferentially infiltrated with 2% lidocaine with epinephrine. Then cervix was circumferentially incised with bovie and the bladder was dissected off the pubovesical cervical fascia anteriorly with a sponge stick and Metzenbaum scissors. The anterior peritoneal reflection was identified and the anterior cul-de-sac was entered sharply with Metzenbaum scissors. The same procedure was performed posteriorly and a posterior colpotomy was made through the posterior cul-de-sac space without difficulty and the posterior blade of the Bookwalter vaginal retractor was advanced posteriorly into the cul-de-sac. At this time, the left and right uterosacral ligaments were isolated and ligated with 0 Vicryl. The Enseal device was placed over the uterosacral ligaments on either side and was then used in a serial fashion up through the cardinal ligaments bilaterally cross-clamped, cut, and sealed with the Enseal device. Finally, the uterine arteries were cross-clamped, cut, sealed and ligated with the Enseal device. Hemostasis was assured. The broad ligaments were then serially clamped, sealed and cut with the Enseal device on both sides. Excellent hemostasis was visualized. Both cornua were clamped, sealed and cut with the Enseal device. Then the pedicles were then suture ligated with excellent hemostasis. The uterus was excised and submitted for pathologic evaluation. No other abnormalities were noted in the pelvic cavity. Then the left fallopian tube was identified and grasped with a [place]. Then it was grasped, clamped sealed and excised using the Enseal device. The same procedure was performed on the right fallopian tube. Then the peritoneum was then closed in a pursestring fashion with 0 Vicryl suture. The vaginal cuff angles were closed with [id number] #0 Vicryl suture on both sides and transfixed with the ipsilateral cardinal and uterosacral ligaments. Patient was given methylene blue IV. The remainder of the vaginal cuff was closed with #0 Vicryl in a running locked fashion. At this time, instruments were removed from the vagina at hemostasis assured. Barajas catheter was noted yielding clear wil urine. The patient was taken out of dorsal lithotomy position and awakened from the general anesthesia. The patient tolerated the procedure well and was taken to the PACU recovery room in a stable condition. Sponge, lap, needle and instruments counts were correct x3.
[2021-06-16] MEDS: HYDROmorphone 1 mg/mL INJ 1 mL 0.5 MG IVP ×2 (09:14→09:24)
[2021-06-16] MEDS: ketorolac 30 mg/mL INJ IVP ×3 (11:22→21:20)
[2021-06-16] MEDS: dextrose 5%-lactated ringers 1,000 ML 125 ML IV ×2 (11:23→21:19)
--- NOTE | 2021-06-16 15:40 | ANE.PACU2 ---
Inpatient post-anesthesia follow up: Airway intact: Yes Vital signs: Temperature 97.6 F Pulse Rate 81 Respiratory Rate 16 Blood Pressure 107/69 Pulse Oximetry 93 Oxygen Delivery Me thod Room Air Oxygen Flow Rate 8 Fraction of Inspir ed Oxygen Hydration adequate: Yes Nausea and vomiting: No Pain level: 2 Mental status: Baseline
[2021-06-16] MEDS: pantoprazole DR 40 mg Tablet PO (18:41)
[2021-06-16] MEDS: docusate sodium 100 mg Capsule PO (18:41)
[2021-06-17] VITALS (15 sets, daily range): BP systolic 111–145; BP diastolic 70–95; PULSE 67–94; RESP 16–18; TEMP 36.4–37; O2SAT 94–99
[2021-06-17] MEDS: dextrose 5%-lactated ringers 1,000 ML 125 ML IV (02:22)
[2021-06-17] MEDS: ketorolac 30 mg/mL INJ IVP (04:11)
--- NOTE | 2021-06-17 05:28 | PC.NURSE ---
Addendum entered by Robb Mccollum RN 06/17/21 05:30: no vaginal packing noted Original Note: morin removed, pt tolerated well. 200ml urine in system.
--- NOTE | 2021-06-17 05:59 | PC.NURSE ---
pt void in brm at this time 250ml out
[2021-06-17 06:41] LABS: Hematocrit 23.3 % (37.0-47.0); Hemoglobin 6.7 g/dL (11.5-15.3); Mean Corpuscular HGB Conc 28.8 g/dL (30.0-36.0); Mean Corpuscular Hemoglobin 27.8 pg (28.0-34.0); Mean Corpuscular Volume 96.7 fl (81-99); Mean Platelet Volume 10.7 fL (7.4-10.4); Platelet Count 218 10^3/cmm (130-400); Red Blood Count 2.41 10^6/uL (4.1-5.3); Red Cell Distribution Width 20.8 % (12.1-15.1); White Blood Count 13.5 10^3/uL (4.0-10.0)
[2021-06-17 06:44] LABS: Glucose Point of Care 128 mg/dL (70-110)
[2021-06-17] MEDS: docusate sodium 100 mg Capsule PO ×2 (10:01→18:10)
[2021-06-17] MEDS: ibuprofen 800 mg tablet PO (10:01)
[2021-06-17] MEDS: ascorbic acid 500 mg Tablet PO (10:01)
[2021-06-17] MEDS: pantoprazole DR 40 mg Tablet PO ×2 (10:01→18:10)
--- NOTE | 2021-06-17 10:48 | PC.CHAP ---
Pastoral Care Encounter/Spiritual Assessment Type of Contact [] Declined power press supervisor visit [] Patient/Family/Request visit [] Outpatient visit [] Follow-up visit [] Physician referral [] Code/Alert [x] Routine visit [] Staff referral [] Actively dying [] Patient sleeping [] Family support [] [] Out of room [] Palliative care [] [x] Receiving care in room [] Pre-surgical visit [] Trauma [] Long length of stay [] ICU visit [] Other: Relational/Emotional Strength [x] Patient feels connected with others/family/visitors/staff [] Distress [] Loneliness/isolation [] Abandonment Spirituality of Patient [x] Person of Ksenia [] Attends Yarsani of their Ksenia [x] Believes in Prayer [] Reads Bible or Mu-Ism materials [] There are Spiritual issues to be addressed Retail Leader Interventions [x] Prayer [x] Active listening [x] Non-anxious presence [x] Spiritual/emotional support [] Crisis/trauma care [x] Spiritual counseling [] Bereavement support [] Provided bereavement packet [] Provided Bible/devotional materials [] Provided toy/stuffed animal, coloring book to patient or family member [] Provided Communion [] Anointing/[place] [] Salvation [x] Completed spiritual assessment [] Other: Impact on Illness or Injury [] Angry [] Fearful [x] Anxious [] Often cries [] Exhaustion [] Unable to work [] Unable to attend adventist [] Unable to walk/stand [] Unable to read [] Unable to drive [] Unable to eat/drink [] Unable to sleep [] Unable to be with family [] Patient intubated [] Other: Summary has surgery hysteromy in some pain going home today Time spent with patient 5 mins
[2021-06-17 11:59] LABS: Glucose Point of Care 163 mg/dL (70-110)
[2021-06-17 11:59] LABS: Glucose Point of Care 122 mg/dL (70-110)
--- NOTE | 2021-06-17 19:45 | PC.NURSE ---
called into room by patient, stating my blood is done so i'm leaving now. informed pt that lab will be up to draw her blood in a few minutes and that it wouldn't take too long to get the results and talk with Dr. Alanis. pt stated i'm not staying any longer informed pt that she would have to sign an against medical advise form and pt agreed. vs taken, iv removed intact and pt signed paperwork and left. Dr. Alanis informed.
--- NOTE | 2021-06-17 20:00 | PM.PN ---
Subjective Subjective: Interval history: Mrs. Merino 41-year-old female status post total vaginal hysterectomy postoperative day 1. Vitals/I&O/Wt Last Vital Signs Temp 98.3 F 06/17/21 19:54 Pulse 83 06/17/21 19:54 Resp 16 06/17/21 19:54 BP 145/95 06/17/21 19:54 Pulse Ox 97 06/17/21 19:54 06/17/21 06/17/21 06/17/21 06:59 14:59 22:59 Intake Total 751.25 / 2051.25 1360 / 1360 590 / 1950 Output Total 1100 / 2900 Balance -348.75 / -848.75 1360 / 1360 590 / 1950 Weight last 48 hrs Weight 95.254 kg Physical Exam Urinary Catheter Management^: [place]: Cath Placed During This Visit: yes, but has since been removed by the nurse Reason for Continuing Indwelling Catheter: Perioperative Use in Selected Surgeries Urinary Catheter Date of Insertion: 06/16/21 Urinary Catheter Time of Insertion: 07:15 Date Urinary Catheter Removed: 06/17/21 Time Urinary Catheter Discontinued: 05:20 Data : 06/17/21 06:13 06/14/21 12:25 A&P Assessment and plan (1) Status post vaginal hysterectomy: I was notified by the nurse sewer separation designer that Mrs. Merino has left the hospital AGAINST MEDICAL ADVICE. Mrs. Merino 41-year-old female status post total vaginal hysterectomy postoperative day 1. Postop anemia was significant and 2 units of packed red blood cells was ordered at 8:00 this morning. A preop order for type and screen for 2 units was given before surgery. It had taken all day to transfuse 2 units of blood on the floor and the patient left upset not wanting to wait for the post transfusion hemogram 12 hours later. Status: Acute (2) Anemia: Status: Acute Attestations Medical Necessity Statement*: In my professional in my professional opinion per admitting diagnosis. Coding Level of Care Code Acute Respiratory Therapy Technician for Ovid[facility] Diagnoses Status post vaginal hysterectomy Z90.710 Anemia D64.9
--- NOTE | 2021-06-18 11:20 | PC.SOCIAL ---
discharge follow up call made, spoke with pt. pt reports she left ama. pt reports i had to hold the iv in my arm while the blood went in because it was pushing up. the first iv squirted blood everywhere, i'm not sure the first bag even went in pt reports she has an appointment with her pcp today, dr. simpson the and dr rosenbaum in 2 weeks. she reports she feels great and has no pain. discussed the importance of keeping pcp appointment today due to hemoglobin being 6.7 on discharge. pt verbalized the understanding.
== END 2021-06-17 19:55 | disposition home or self-care (01) ==
LOC: MEDSURG 09:05
PROVIDERS: Admitting Provider Obstetrics & Gynecology; PCP Nurse Practitioner Family; Visit Provider Obstetrics & Gynecology
PROC: (CPT 58262; principal; 2021-06-16 07:00)
DX: N92.0 Excessive and frequent menstruation with regular cycle (principal); D50.9 Iron deficiency anemia, unspecified; I10 Essential (primary) hypertension; K27.9 Peptic ulcer, site unspecified, unspecified as acute or chronic, without hemorrhage or perforation; E66.01 Morbid (severe) obesity due to excess calories; Z68.41 Body mass index [BMI] 40.0-44.9, adult; F17.210 Nicotine dependence, cigarettes, uncomplicated; Z53.29 Procedure and treatment not carried out because of patient's decision for other reasons
CPT/HCPCS: 58262; 36415; 36416; 36430; 80053; 81003; 81025; 82962; 84703; 85025; 85027; 86850; 86900; 86920; 88307; 96365; G0378; J0690; J1100; J1170; J1885; J2405; J2704; J3010; J3490; J7030; J7040; P9016; Q9968

== ENCOUNTER 2021-06-24 12:46 | Outpatient (CLI) | payer OTHER, BC, MEDICAID, SELFPAY ==
[2021-06-24] MEDS: ferric carboxy (PYXIS) 750 mg/15 mL INJ IV (13:55)
[2021-06-24] MEDS: sodium chloride 0.9% 100 mL Bag IV (13:55)
== END 2021-06-24 12:47 | disposition home or self-care (01) ==
LOC: ONCMED 12:47
PROVIDERS: PCP Nurse Practitioner Family; Visit Provider Internal Medicine Medical Oncology
DX: D50.9 Iron deficiency anemia, unspecified (principal)
CPT/HCPCS: 96365; J1439

== ENCOUNTER 2021-07-20 13:01 | Outpatient (CLI) | payer OTHER, BC, MEDICAID, SELFPAY ==
[2021-07-20 13:37] LABS: Basophils # 0.1 10^3/uL (0.0-0.1); Basophils % 0.8 %; Eosinophils # 0.4 10^3/uL (0.0-0.8); Eosinophils % 4.8 %; Hematocrit 39.9 % (37.0-47.0); Hemoglobin 12.4 g/dL (11.5-15.3); Lymphocytes # 1.6 10^3/uL (0.8-4.8); Mean Corpuscular HGB Conc 31.1 g/dL (30.0-36.0); Mean Corpuscular Hemoglobin 28.5 pg (28.0-34.0); Mean Corpuscular Volume 91.7 fl (81-99); Mean Platelet Volume 10.8 fL (7.4-10.4); Monocytes # 0.6 10^3/uL (0.2-0.9); Monocytes % 8.2 %; Neutrophils # 4.76 10^3/uL (1.8-7.7); Neutrophils % 63.9 %; Nucleated Red Blood Cells % 0 %; Platelet Count 232 10^3/cmm (130-400); Red Blood Count 4.35 10^6/uL (4.1-5.3); Red Cell Distribution Width 15.8 % (12.1-15.1); White Blood Count 7.5 10^3/uL (4.0-10.0)
[2021-07-20 13:54] LABS: Ferritin 242 ng/mL (15-150); Iron 38 ug/dL (37-145); Percent Saturation 15.8 % (20-50); Total Iron Binding Capacity 239 mcg/dl; Unsaturated Iron Binding 201 ug/dL (112-347)
== END 2021-07-20 13:02 | disposition home or self-care (01) ==
LOC: ONCMED 13:03
PROVIDERS: PCP Nurse Practitioner Family; Visit Provider Internal Medicine Medical Oncology
DX: D50.9 Iron deficiency anemia, unspecified (principal)
CPT/HCPCS: 36415; 82728; 83540; 83550; 85025

== ENCOUNTER 2021-07-22 06:40 | Outpatient (CLI) | payer OTHER, BC, MEDICAID, SELFPAY ==
--- NOTE | 2021-07-25 15:20 | ONC FU_ITS ---
Dr. Strickland Patient Follow-Up Note Patient: Tawny Merino Unit #: [id number]: 1980 Dicatated By: Loy Strickland M.D.Date of Visit:Jul 22, 2021 Onc Med Follow-up/Prog Note Chief Complaint: Anemia. History of Present Illness: This is a 41-year-old woman with iron deficiency anemia. She has a history of chronic anemia. She had previously not been able to correct it with oral iron, in part due to the fact that she has tolerated very poorly and she had not been able to take it on a regular basis. On 11/09/2020 she was admitted to the hospital after presenting to the emergency room with severe weakness, shortness of breath, and lightheadedness. Her hemoglobin was only 3.1 g with hematocrit 12.6%. The red cell indices were markedly hypochromic/microcytic with MCV 66 and MCH 16. The serum iron was 10 mcg/dL with transferrin saturation 2.5% and the ferritin was low at 16 ng/mL, consistent with iron deficiency. Her B12 level was normal at 660 pg/mL. She was transfused a total of 4 units PRBC, and she also received 3 infusions of Venofer. She had not been aware of obvious GI blood loss, but she had a known history of peptic ulcer disease and she was having GERD symptoms. Her EGD on 11/12/2020 showed evidence of hiatal hernia with gastritis and associated gastric erosions. Gastric biopsy was negative for gastropathy and negative for H. pylori. She was discharged home on pantoprazole 40 mg daily. I had seen her initially on 11/16/2020. Her repeat CBC still showed moderately severe anemia with hemoglobin 9.1 g and 31.9%. The red cell indices were hypochromic and microcytic. Her serum iron studies showed low transferrin saturation at 8.5%. As she had previously been intolerant of oral iron supplements, I had recommended that she have parenteral iron replacement. She returned on 12/07/2020 for an infusion of Infed, as that product had been mandated by her insurance carrier. She tolerated it with no acute toxicity. At her follow-up visit on 01/28/2021 she was still mildly anemic with hemoglobin 10.1 g and hematocrit 34.8%. The red cell indices were hypochromic/microcytic. The serum iron studies showed low transferrin saturation at 5% and the ferritin was still relatively low at 43 ng/mL. At that point she was given a second infusion of Infed. During subsequent follow-up, she remained just mildly anemic. However, as of 06/14/2021 there was a significant drop in her hemoglobin to 8.8 g. Her transferrin saturation was low at 3.5% and the ferritin was low at 15 ng/mL, consistent with iron deficiency. At that point she was given additional parenteral iron replacement with 2 infusions of Injectafer. She tolerated it well. In the meantime, she also underwent total vaginal hysterectomy on 06/16/2021. She had no complications with the procedure. She is seen for a follow-up visit. She has been feeling much better generally, though at times her energy is still kind of low and she still feels a little lethargic. She is able to do some walking and she is back to working 5 hours a day. Her ECOG score is 1. Her appetite has been okay. She has not had fever and she is not having hot flashes, but she does have some sweating at times. She has not had sore mouth or throat. She does not complain of cough, and she has not been having shortness of breath or chest pain. She continues to have acid reflux symptoms despite taking pantoprazole 40 mg twice a day. She also complains of having constipation. Bladder function has been okay, though she thinks she is not voiding as much as she should be. She has no significant joint or bone pain. She reports having some sinus headaches. She does not complain of dizziness, and she has no focal neurologic symptoms. Medications: Acetaminophen 1 (325 mg) Tablet Oral b.i.d., Pantoprazole Sodium 1 (40 mg) Tablet, enteric coated Oral b.i.d., Venofer (200 mg/mL) Intravenous Take as Directed Allergies: Sulfa Antibiotics Vital Signs: Performed on Jul 22, 2021 16:43 Height - 59.00 in Weight - 214.0 lbs (HIGH) BSA - 1.90 sq.m BMI - 43.22 (HIGH) Temperature - 97.6 F (LOW) Pulse - 87 /min Respiration - 16 /min BP - 146/102 mm(hg) (HIGH) O2 Sat - 99 % Pain - 0 Fatigue - 5 Physical Examination: Constitutional - She looks pretty good generally, Eyes - Sclerae nonicteric. Conjunctivae clear, ENMT - No lesions noted in the oral cavity, Hematologic/Lymphatic - No cervical, clavicular, or axillary adenopathy, Respiratory - Lungs are clear with good air movement bilaterally, Cardiovascular - Heart rhythm is regular. There is no murmur, gallop, or rub noted, Abdomen - Soft. Liver and spleen are not enlarged. There is no abdominal mass or ascites noted and there is no inguinal adenopathy, Extremities - No edema, Neurologic - No focal neurologic deficits noted. Lab/Imaging: CBC shows hemoglobin 12.4 g, white blood cell count 7500, and platelet count 232,000. Her serum iron studies show transferrin saturation slightly low at 15.8% but with ferritin increased to 242 ng/mL. Problem List: 1. Acute on chronic anemia, with at least some component due to iron deficiency. 2. Hiatal hernia/GERD and prior history of peptic ulcer disease. 3. Hypertension. 4. History of nephrolithiasis. Problems Addressed with this Encounter and Plan: 1. Patient with iron deficiency anemia. It is most likely due to a combination of menstrual blood loss and inadequate oral iron absorption. She initially had some improvement following 2 infusions of Infed, which she tolerated well. However, during follow-up she remained mildly anemic. As of 06/14/2021 there was a significant decline in her hemoglobin to 8.8 g with transferrin saturation and ferritin consistent with iron deficiency. She was then given additional parenteral iron replacement with 2 infusions of Injectafer. In the meantime, she also underwent total vaginal hysterectomy on 06/16/2021. She has had a very good clinical response to the Injectafer with hemoglobin now up to 12.4 g. She will be scheduled for follow-up in 3 months. 2. She has had ongoing GERD symptoms despite taking pantoprazole 40 mg twice daily. I will now have her try adding metoclopramide at 5 mg 4 times daily before meals and at bedtime. Signed By: Loy Strickland M.D. <<Signature on File>>
== END 2021-07-22 06:41 | disposition home or self-care (01) ==
LOC: ONCMED 06:41
PROVIDERS: PCP Nurse Practitioner Family; Visit Provider Internal Medicine Medical Oncology
DX: D50.9 Iron deficiency anemia, unspecified (principal); K21.9 Gastro-esophageal reflux disease without esophagitis; K44.9 Diaphragmatic hernia without obstruction or gangrene; I10 Essential (primary) hypertension; Z79.899 Other long term (current) drug therapy
CPT/HCPCS: 99214

== ENCOUNTER 2021-10-29 07:55 | Outpatient (CLI) | payer BC, MEDICAID, SELFPAY ==
[2021-10-29 08:27] LABS: Basophils # 0.1 10^3/uL (0.0-0.1); Basophils % 0.6 %; Eosinophils # 0.3 10^3/uL (0.0-0.8); Eosinophils % 3.1 %; Hematocrit 41.1 % (37.0-47.0); Hemoglobin 13.1 g/dL (11.5-15.3); Lymphocytes # 1.7 10^3/uL (0.8-4.8); Lymphocytes % 18.6 %; Mean Corpuscular HGB Conc 31.9 g/dL (30.0-36.0); Mean Corpuscular Hemoglobin 26.6 pg (28.0-34.0); Mean Corpuscular Volume 83.4 fl (81-99); Mean Platelet Volume 10.6 fL (7.4-10.4); Monocytes # 0.9 10^3/uL (0.2-0.9); Monocytes % 9.6 %; Neutrophils # 6.27 10^3/uL (1.8-7.7); Neutrophils % 67.3 %; Nucleated Red Blood Cells % 0 %; Platelet Count 211 10^3/cmm (130-400); Red Blood Count 4.93 10^6/uL (4.1-5.3); Red Cell Distribution Width 14.5 % (12.1-15.1); White Blood Count 9.3 10^3/uL (4.0-10.0)
[2021-10-29 08:52] LABS: Ferritin 76 ng/mL (15-150); Iron 80 ug/dL (37-145); Percent Saturation 30.6 % (20-50); Total Iron Binding Capacity 261 mcg/dl; Unsaturated Iron Binding 181 ug/dL (112-347)
--- NOTE | 2021-10-29 11:10 | ONC FU_ITS ---
[facility] Progress Note Patient: Tawny Merino Unit #: [id number]: 1980 Dicatated By: Mary Ann Coelho N.P.Date of Visit:Oct 29, 2021 Onc MED Follow-up/Prog Note Chief Complaint: Anemia. History of Present Illness: This is a 41-year-old woman with iron deficiency anemia. She has a history of chronic anemia. She had previously not been able to correct it with oral iron, in part due to the fact that she has tolerated very poorly and she had not been able to take it on a regular basis. On 11/09/2020 she was admitted to the hospital after presenting to the emergency room with severe weakness, shortness of breath, and lightheadedness. Her hemoglobin was only 3.1 g with hematocrit 12.6%. The red cell indices were markedly hypochromic/microcytic with MCV 66 and MCH 16. The serum iron was 10 mcg/dL with transferrin saturation 2.5% and the ferritin was low at 16 ng/mL, consistent with iron deficiency. Her B12 level was normal at 660 pg/mL. She was transfused a total of 4 units PRBC, and she also received 3 infusions of Venofer. She had not been aware of obvious GI blood loss, but she had a known history of peptic ulcer disease and she was having GERD symptoms. Her EGD on 11/12/2020 showed evidence of hiatal hernia with gastritis and associated gastric erosions. Gastric biopsy was negative for gastropathy and negative for H. pylori. She was discharged home on pantoprazole 40 mg daily. I had seen her initially on 11/16/2020. Her repeat CBC still showed moderately severe anemia with hemoglobin 9.1 g and 31.9%. The red cell indices were hypochromic and microcytic. Her serum iron studies showed low transferrin saturation at 8.5%. As she had previously been intolerant of oral iron supplements, I had recommended that she have parenteral iron replacement. She returned on 12/07/2020 for an infusion of Infed, as that product had been mandated by her insurance carrier. She tolerated it with no acute toxicity. At her follow-up visit on 01/28/2021 she was still mildly anemic with hemoglobin 10.1 g and hematocrit 34.8%. The red cell indices were hypochromic/microcytic. The serum iron studies showed low transferrin saturation at 5% and the ferritin was still relatively low at 43 ng/mL. At that point she was given a second infusion of Infed. During subsequent follow-up, she remained just mildly anemic. However, as of 06/14/2021 there was a significant drop in her hemoglobin to 8.8 g. Her transferrin saturation was low at 3.5% and the ferritin was low at 15 ng/mL, consistent with iron deficiency. At that point she was given additional parenteral iron replacement with 2 infusions of Injectafer. She tolerated it well. In the meantime, she also underwent total vaginal hysterectomy on 06/16/2021. She had no complications with the procedure. From yesterday patient presents today for follow-up. She states she has been feeling well. She denies weakness or fatigue. Her appetite has been good. No fever, chills, night sweats. No sinus drainage or congestion. No shortness of breath, cough, chest pain. No nausea or vomiting. No blood in stool. She no longer has a menstrual cycle. No area. Today she has a migraine which she has on occasion. It was noted that her blood pressure is elevated today and she is not on any medication but she has a follow-up appointment with her PCP on Monday to discuss her blood pressure. Review Of Symptoms:See above. Past Medical History: Anemia Hiatal hernia/GERD History of nephrolithiasis History of peptic ulcer disease Hypertension Past Surgical History: History of peptic ulcer disease EGD in 2020 Covid vaccine #2 in 2020 Covid vaccine #1 in 2019 Hernia repair in 2018 Cholecystectomy in 2016 section and tubal ligation in 2014 Hernia repair in 2012 EGD in 1997 Placement of ear tubes in 1983 Allergies: Sulfa Antibiotics Medications: Fluticasone Propionate 2 Loomis(s) (of 50 mcg/act) Suspension Nasal daily Folic Acid 1 (1 mg) Tablet Oral daily Metoclopramide HCl 1 Tablet (of 5 mg/mL) Injection q 6 hours Multivitamin Women 1 Tablet Oral daily Pantoprazole Sodium 1 (40 mg) Tablet, enteric coated Oral b.i.d. Vitamin C 1 Tablet (of 500 mg) Oral daily Family History: Ms. Merino's mother is alive: type II diabetes, and hypertension, and osteoporosis. Ms. Merino's father is alive: hypertension, and type II diabetes. Ms. Merino has 1 brother who is alive. She has 2 sisters: 2 alive. Both parents are living, father at age 73 and mother at age 72. Both have anemia and diabetes. She indicates that her brother and 2 sisters also have anemia. Her maternal grandfather with leukemia. There is history of cancer affecting 2 maternal aunts and 3 great aunts on her mother's side, including 2 with breast cancer and 3 with uterine cancer. Social History: Ms. Merino is . She is a daily smoker. She has no history of drinking. Ms. Merino reports the following support systems: lives with spouse, significant other, family, or friends. She has a history of smoking for 15 years, previously up to 1 pack of cigarettes daily. She has cut down, now to 3 cigarettes/day, and she is planning to quit. She does not drink alcohol. Physical Examination: Performed on Oct 29, 2021 09:31: Height - 59.00 in, BP - 158/104 mm(hg) (HIGH), Performed on Oct 29, 2021 09:31: Height - 59.00 in, Weight - 222.8 lbs (HIGH), BSA - 1.93 sq.m, BMI - 45.00 (HIGH), Temperature - 97.2 F (LOW), Pulse - 81 /min, Respiration - 16 /min, BP - 172/122 mm(hg) (HIGH), O2 Sat - 99 %, Pain - 8, and Fatigue - 7. Performance Status: 0 - Fully active, able to carry on all predisease activities without restrictions. (ECOG) Constitutional Alert, cooperative, oriented. Mood and affect appropriate. Appears close to chronological age. Well nourished. Well developed. Head Normocephalic; no scars. Eyes Conjunctivae and sclerae are clear and without icterus. Pupils are reactive and equal. Respiratory Lungs are clear to auscultation without rhonchi or wheezing. Cardiovascular Regular rate and rhythm of heart without murmurs, gallops or rubs. Abdomen Non-tender, non-distended, no masses, ascites or hepatosplenomegaly. Good bowel sounds. No guarding or rebound tenderness. Extremities No edema Musculoskeletal No tenderness or swelling, normal range of motion without obvious weakness. Psychiatric Alert and oriented times three. Coherent speech. Verbalizes understanding of our discussions today. Laboratory: Test performed on Oct 29, 2021 08:17 Ferritin 76 ng/mL Iron 80 mcg/dL Iron Binding Capacity (TIBC) 261 mcg/dl % Iron Saturation 30.6 % UIBC 181 mcg/dL WBC 9.3 10 3/uL RBC 4.93 10 6/uL HGB 13.1 g/dL HCT 41.1 % MCV 83.4 fl MCH 26.6 pg MCHC 31.9 g/dL RDW 14.5 % Platelet Count 211 10 3/cmm MPV 10.6 fL Neutrophils 6.27 10 3/uL Lymphocytes 1.7 10 3/uL Monocytes 0.9 10 3/uL Eosinophils 0.3 10 3/uL Basophils 0.1 10 3/uL Neutrophil % 67.3 % Lymphocyte % 18.6 % Monocyte % 9.6 % Eosinophil % 3.1 % Basophils % 0.6 % NRBC % 0 % Test performed on Jun 14, 2021 12:25 Manual Segs 62.6 % Manual Lymphocytes 22.3 % Manual Monocytes 11.1 % Manual Eosinophils 2.4 % Manual Basophils 0.5 % NRBCs 0.1 /100 WBC Test performed on Jun 14, 2021 00:00 Manual Diff Cancelled via OM: Cancelled in Connected System Impression: 1. Acute on chronic anemia, with at least some component due to iron deficiency. 2. Hiatal hernia/GERD and prior history of peptic ulcer disease. 3. Hypertension. 4. History of nephrolithiasis. Plan: 1. Patient with iron deficiency anemia. It is most likely due to a combination of menstrual blood loss and inadequate oral iron absorption. She initially had some improvement following 2 infusions of Infed, which she tolerated well. However, during follow-up she remained mildly anemic. As of 06/14/2021 there was a significant decline in her hemoglobin to 8.8 g with transferrin saturation and ferritin consistent with iron deficiency. She was then given additional parenteral iron replacement with 2 infusions of Injectafer. In the meantime, she also underwent total vaginal hysterectomy on 06/16/2021. She has had a very good clinical response to the Injectafer with hemoglobin increased to 12.4 g. She presents today for follow-up. Her labs are within normal limits. Her iron studies are iron saturation of 30.6, ferritin 76, and iron at 80. Patient given the option of coming back in 3 months or as needed and she would like to follow-up in 3 months with CBC and iron studies. 2. She has had ongoing GERD symptoms despite taking pantoprazole 40 mg twice daily. Mmetoclopramide at 5 mg 4 times daily before meals and at bedtime. Gerd well controlled. Signed By: Mary Ann Coelho N.P. <<Signature on File>>
== END 2021-10-29 07:56 | disposition home or self-care (01) ==
PROVIDERS: PCP Nurse Practitioner Family; Visit Provider Nurse Practitioner Family
DX: D50.9 Iron deficiency anemia, unspecified (principal); K21.9 Gastro-esophageal reflux disease without esophagitis; K44.9 Diaphragmatic hernia without obstruction or gangrene; K27.9 Peptic ulcer, site unspecified, unspecified as acute or chronic, without hemorrhage or perforation; I10 Essential (primary) hypertension; Z79.899 Other long term (current) drug therapy
CPT/HCPCS: 36415; 82728; 83540; 83550; 85025; 99214

== ENCOUNTER 2021-12-28 10:30 | Emergency (ER) | payer BC, MEDICAID, SELFPAY ==
[2021-12-28 10:45] VITALS: BP 164/112; PULSE 96; RESP 16; TEMP 37; O2SAT 97; BMI 45.0
[2021-12-28 11:19] LABS: Hematocrit 34.2 % (37.0-47.0); Hemoglobin 10.3 g/dL (11.5-15.3); Mean Corpuscular HGB Conc 30.1 g/dL (30.0-36.0); Mean Platelet Volume 10.8 fL (7.4-10.4); Platelet Count 259 10^3/cmm (130-400); Red Blood Count 4.12 10^6/uL (4.1-5.3); Red Cell Distribution Width 15.4 % (12.1-15.1); White Blood Count 8.1 10^3/uL (4.0-10.0)
[2021-12-28 11:36] LABS: Anion Gap 15.7 (5-19); Blood Urea Nitrogen 7 mg/dL (6-20); Calcium 8.7 mg/dL (8.5-10.5); Carbon Dioxide 22 mmol/L (22-29); Chloride 103 mmol/L (98-107); Glomerular Filtration Rate 91.8 mL/min (90-130); Glucose 103 mg/dL (65-115); Osmolality Calculated 282 mOsm/kg (285-295); Potassium 3.7 mmol/L (3.5-5.1); Sodium 137 mmol/L (136-145)
[2021-12-28 11:52] LABS: Slide Review Slide Review Perform
--- NOTE | 2021-12-28 11:52 | XR_ITS ---
WS: [id number] PORTABLE CHEST HISTORY: Coughing for one month. COMPARISON: 06/09/2021 Lungs are clear and well expanded. No pleural effusion or pneumothorax. Cardiac size: Normal. Mediastinum/Aorta: Normal mediastinum. No osseous abnormality seen. XR/XR chest 1V portable [id number] IMPRESSION: Unremarkable portable chest.
[2021-12-28 11:53] LABS: Absolute Eosinophils 0.4 10^3/cmm (0.0-0.7); Absolute Neutrophil 5.2 10^3/cmm (1.4-6.5); Absolute Segmented Neutrophil 5.2 10/cmm (1.6-7.1); Eosinophils 5 %; Lymphocytes 15 %; Lymphocytes Absolute 1.8 10^3/cmm (1.2-3.4); Monocytes Absolute 0.7 10^3/cmm (0.1-0.6); Platelet Estimate Normal (Normal); Segmented Neutrophils 64 %; Total Cells Counted 100 (0-100)
--- NOTE | 2021-12-28 11:53 | ED_ITS ---
HPI - GI Bleed General: Chief complaint: GI Bleed Stated complaint: dizziness/cough/SOB History of Present Illness: 41-year-old female presents the emergency department with chief complaint of dry hacking cough, fatigue, lightheadedness particularly with exertion. She states that last time she was like this she was anemic. The cough has been going on for 1 month. She has tried using [id number] cough suppressants without success. She tried stopping her losartan for the last 2 weeks and this has resulted in hypertension but has not alleviated her cough. She reports she has a history of gastroesophageal reflux with GERD and based on her recollection has had an area of suspected upper GI bleed near her duodenum. She has chronically been anemic due to iron deficiency, history of heavy menstrual bleeding before she had her hysterectomy, and has also had Hemoccult positive stool in the past. Patient reports she has not had any fever. There has been no extremity swelling or hemoptysis. She does smoke cigarettes and states she is not sure whether she has any COPD or asthma, but does not think its been officially diagnosed. Review of Systems Narrative: Pertinent Positives: Shortness of breath, fatigue, coughing, abdominal pain from coughing so much, intermittent dark stools, lightheadedness. Pertinent Negatives: No fever, hemoptysis, extremity pain or swelling or redness, night sweats, vomiting, stool changes. 12 Point ROS performed and otherwise negative unless stated here or HPI. [facility] ED PFSH: Medical History Abnormal uterine bleeding (AUB) Aftercare following surgery of the genitourinary system Gastritis Hiatal hernia History of gastritis History of peptic ulcer disease Hypertension Iron deficiency anemia Nephrolithiasis Surgical History History of abdominal surgery Multiple ventral hernia repairs with mesh Hx of cholecystectomy Tubal ligation status Family History Father Dementia Diabetes Hyperlipidemia Hypertension Stroke Mother Dementia Diabetes Hyperlipidemia Hypertension Thyroid condition Family/Other Breast cancer maternal aunts x3, age onset 74,25 and 50 Uterine cancer maternal aunt age 25 Ovarian cancer maternal aunt at age 25 Denies family history of Colon cancer Clotting disorder Heart disease Anesthesia complication Bleeding disorder Social History (Reviewed 11/01/21 @ 13:24 by KAI Foreman Smoking and tobacco status: current every day smoker cigarettes [ Other cigarette details: 1 cigarette per day] Alcohol intake: never Housing: House Physical Exam Narrative: EXAM NARRATIVE: I have reviewed the triage vital signs. Const: Well-nourished, Well-developed, appearing stated age, obese, patient does cough frequently Eyes: EOMI, no conjunctival injection, and symmetrical lids. ENMT: Atraumatic head and facial exam, external nose and ears normal Neck: Symmetric, trachea midline, no swelling, no JVD, ROM wnl CVS: Regular rate, radial pulse 2+, no peripheral edema RESP: Respiratory rate around 18, I can hear some bronchial breath sounds audibly without my stethoscope but when I listen to her lung sounds with my stethoscope they are clear to auscultation bilaterally. Symmetric expansion,bilaterally GI: Nontender/Nondistended, soft, no masses. Obese. MSK: Normocephalic/Atraumatic, extremities w/o deformity, no cyanosis or clubbing, no edema Skin: Warm, Dry, No rashes or lesions noted. Neuro: Sensation grossly intact, HAAS, no focal neurologic deficits Psych: awake, alert, oriented, appropriate mood and affect Course Vital Signs: Vital signs: Vital Signs Temperature 98.6 F 12/28/21 10:45 Pulse Rate 83 12/28/21 12:13 Respiratory Rate 17 12/28/21 12:08 Blood Pressure 164/103 12/28/21 12:27 Pulse Oximetry 97 12/28/21 12:08 MDM - GI Bleed Medical Decision Making 1 month of cough with associated fatigue. Differential diagnosis could be bronchospasm, bronchitis, pneumonia, congestive heart failure, pulmonary embolism, sleep apnea, esophagitis induced cough, allergic cough, postnasal drip, other. Patient has essential hypertension and it is uncontrolled today. She has taken herself off of her losartan. This did not improve her cough. I will restart it today. Not a hypertensive emergency. CXR clear, no heart enlargement/pulm edema/infiltrates/effusions. Hgb down from 13 to 10.3. MCV WNL but MCH low. Patient needs to restart PNV and Vit C F/u with Hematomology in one week for repeat hgb Monitor for dark stools. Continue PPI for known erosive gastritis. Consider colonoscopy if continues. Patient had significant improvement with a DuoNeb here. Her lungs felt less constricted and she was able to cough up mucus. Regardless of the cause ([employer] customer account representative, infectious, etc.) I think she would benefit from a short course of low-dose prednisone and discharged with albuterol inhaler and spacer. The patient is working on quitting smoking. Lab Data : 12/28/21 11:02 12/28/21 11:02 Radiology Impressions Chest X-Ray 12/28/21 11:52 IMPRESSION: Unremarkable portable chest. Laboratory Results WBC 8.1 10^3/uL (4.0-10.0) 12/28/21 11:02 RBC 4.12 10^6/uL (4.1-5.3) 12/28/21 11:02 Hgb 10.3 g/dL (11.5-15.3) L 12/28/21 11:02 Hct 34.2 % (37.0-47.0) L 12/28/21 11:02 MCV 83.0 fl (81-99) 12/28/21 11:02 MCH 25.0 pg (28.0-34.0) L 12/28/21 11:02 MCHC 30.1 g/dL (30.0-36.0) 12/28/21 11:02 RDW 15.4 % (12.1-15.1) H 12/28/21 11:02 Plt Count 259 10^3/cmm (130-400) 12/28/21 11:02 MPV 10.8 fL (7.4-10.4) H 12/28/21 11:02 Lymph % (Auto) Not Reportable 12/28/21 11:02 [place] % (Auto) Not Reportable 12/28/21 11:02 Lymph # (Auto) Not Reportable 12/28/21 11:02 [place] # (Auto) Not Reportable 12/28/21 11:02 Total Counted 100 (0-100) 12/28/21 11:02 Atypical Lymphs % 7.0 % (0-5) H 12/28/21 11:02 Absolute Neutrophils 5.2 10^3/cmm (1.4-6.5) 12/28/21 11:02 Segmented Neutrophils 64 % 12/28/21 11:02 Abs Segm Neuts (Man) 5.2 10/cmm (1.6-7.1) 12/28/21 11:02 Band Neutrophils 0.0 % 12/28/21 11:02 Abs Band Neuts (Man) 0.0 10^3/cmm (0.0-1.2) 12/28/21 11:02 Absolute Lymphocytes 1.8 10^3/cmm (1.2-3.4) 12/28/21 11:02 Lymphocytes (Manual) 15 % 12/28/21 11:02 Monocytes (Manual) 9.0 % 12/28/21 11:02 Absolute Monocytes 0.7 10^3/cmm (0.1-0.6) H 12/28/21 11:02 Eosinophils (Manual) 5 % 12/28/21 11:02 Absolute Eosinophils 0.4 10^3/cmm (0.0-0.7) 12/28/21 11:02 Basophils (Manual) 0.0 % 12/28/21 11:02 Absolute Basophils 0.0 10^3/cmm (0.0-0.2) 12/28/21 11:02 Platelet Estimate Normal (Normal) 12/28/21 11:02 Sodium 137 mmol/L (136-145) 12/28/21 11:02 Potassium 3.7 mmol/L (3.5-5.1) 12/28/21 11:02 Chloride 103 mmol/L (98-107) 12/28/21 11:02 Carbon Dioxide 22 mmol/L (22-29) 12/28/21 11:02 Anion Gap 15.7 (5-19) 12/28/21 11:02 BUN 7 mg/dL (6-20) 12/28/21 11:02 Creatinine 0.7 mg/dL (0.5-0.9) 12/28/21 11:02 GFR Calculation 91.8 mL/min (90-130) 12/28/21 11:02 Glucose 103 mg/dL (65-115) 12/28/21 11:02 Calculated Osmolality 282 mOsm/kg (285-295) L 12/28/21 11:02 Calcium 8.7 mg/dL (8.5-10.5) 12/28/21 11:02 Discharge Plan Discharge Patient Disposition: Home Clinical Impression: Essential hypertension, Acute on chronic anemia, Bronchospasm Condition: Stable Prescriptions: New albuterol sulfate 90 mcg/actuation HFA aerosol inhaler 2 inh inhalation Q4H PRN (Reason: shortness of breath or wheezing) Qty: 8.5 2RF (DME) Aerochamber MV Spacer See Rx Instructions .ROUTE Qty: 10 0RF Rx Instructions: As directed prednisone 20 mg tablet 10 mg PO BID 5 Days Qty: 5 0RF No Action ascorbic acid (vitamin C) 500 mg tablet 500 mg PO DAILY 0RF losartan 100 mg tablet 100 mg PO DAILY Qty: 30 2RF sucralfate [Carafate] 1 gram tablet 1 g PO BID Qty: 60 2RF acetaminophen 500 mg Tablet 1,000 mg PO Q4H PRN (Reason: Pain) 0RF fluticasone propionate 50 mcg/actuation spray,suspension 2 spray intranasal DAILY PRN (Reason: Allergy Symptoms) 0RF pantoprazole [Protonix] 40 mg tablet,delayed release (DR/EC) 40 mg PO BID Qty: 60 0RF + Iron 1 mg Tablet 1 tab PO DAILY 0RF Discharge Orders: Discharge ED (Routine); Ordered 12/28/21 Ordered By: Mike Orona Referrals: Mary Ann Coelho, [id number] PROGRAMMER [Hospitalist] - 1 week Discharge Diet: Usual diet Discharge Activity: Resume usual activity Patient Instructions: Opioid Safety Activity Restrictions/Additional Instructions: 1. Monitor for dark stools. 2. Repeat your hemoglobin in one week. 3. Take vitamin and vitamin C. 4. Make a follow-up appointment with Dr Coelho 5. You have known erosive gastritis which was the presumed cause of bleeding but if you continue to have recurrent anemia, consider colonoscopy 6. Do your best to quit smoking as you seem to be suffering from bronchospa sm---use inhaler as prescribed with an inhaler. Coding Level of Care Code ED Rn Oncology Research for Ovidio Estrada
[2021-12-28 12:08] VITALS: PULSE 77; RESP 17; O2SAT 97
[2021-12-28] MEDS: ipratropium-albuterol 3 mL Neb INHALATION (12:08)
[2021-12-28 12:13] VITALS: PULSE 83
[2021-12-28 12:27] VITALS: BP 164/103
[2021-12-28] MEDS: losartan 50 mg Tablet 100 MG PO (12:27)
== END 2021-12-28 13:03 | disposition home or self-care (01) ==
PROVIDERS: Emergency Provider Emergency Medicine
DX: J98.01 Acute bronchospasm (principal); I10 Essential (primary) hypertension; D64.9 Anemia, unspecified; K29.70 Gastritis, unspecified, without bleeding; F17.210 Nicotine dependence, cigarettes, uncomplicated
CPT/HCPCS: 71045; 80048; 85007; 85025; 94640; 99283

== ENCOUNTER 2022-03-01 11:07 | Oncology outpatient (recurring) (ONCR) | payer BC, MEDICAID, SELFPAY ==
[2022-03-01 11:52] LABS: Basophils # 0.1 10^3/uL (0.0-0.1); Basophils % 0.5 %; Eosinophils # 0.4 10^3/uL (0.0-0.8); Eosinophils % 4.3 %; Hemoglobin 11.6 g/dL (11.5-15.3); Lymphocytes # 2.1 10^3/uL (0.8-4.8); Lymphocytes % 22.7 %; Mean Corpuscular HGB Conc 30.5 g/dL (30.0-36.0); Mean Corpuscular Hemoglobin 23.2 pg (28.0-34.0); Mean Corpuscular Volume 76.2 fl (81-99); Mean Platelet Volume 11.1 fL (7.4-10.4); Monocytes # 0.6 10^3/uL (0.2-0.9); Monocytes % 6.4 %; Neutrophils % 65.6 %; Nucleated Red Blood Cells % 0 %; Platelet Count 245 10^3/cmm (130-400); Red Blood Count 4.99 10^6/uL (4.1-5.3); Red Cell Distribution Width 16.3 % (12.1-15.1); White Blood Count 9.2 10^3/uL (4.0-10.0)
[2022-03-01 12:22] LABS: Ferritin 14 ng/mL (15-150); Iron 96 ug/dL (37-145); Percent Saturation 28.3 % (20-50); Total Iron Binding Capacity 339 mcg/dl; Unsaturated Iron Binding 243 ug/dL (112-347)
[2022-03-01 14:04] LABS: Thyroid Stimulating Hormone 0.94 uIU/mL (0.27-4.20)
== END 2022-03-06 23:59 | disposition home or self-care (01) ==
PROVIDERS: PCP Neurological Surgery; Visit Provider Nurse Practitioner Family
DX: D50.9 Iron deficiency anemia, unspecified (principal); R53.83 Other fatigue; K21.00 Gastro-esophageal reflux disease with esophagitis, without bleeding; N92.0 Excessive and frequent menstruation with regular cycle; Z79.899 Other long term (current) drug therapy
CPT/HCPCS: 36415; 82728; 83540; 83550; 84443; 85025; 99214

== ENCOUNTER → 2022-03-28 14:46 | Outpatient (BNVA) | payer BC, MEDICAID, SELFPAY | PROVIDERS: PCP Family Medicine; Visit Provider Family Medicine | DX: I10 Essential (primary) hypertension (principal); R60.0 Localized edema | CPT/HCPCS: 80048 ==

== ENCOUNTER 2023-04-07 20:24 | Emergency (ER) | payer MEDICAID, SELFPAY ==
[2023-04-07 20:30] VITALS: BP 153/102; PULSE 102; RESP 16; TEMP 36.6; O2SAT 96; BMI 40.4
--- NOTE | 2023-04-07 21:00 | W.ED.GENADLT ---
HPI - General Adult General: Chief complaint: General Medical Stated complaint: bit by a spider Time Seen by Provider: 04/07/23 20:33 History of Present Illness: Patient presents to the ER with complaints of a spider bite on the back of the right thigh. Patient has been taking Benadryl at home for about the last 3 days and it does not seem to be working. The area is red hot swollen and very painful. This has happened before. But this time is getting worse. Patient also is out of her blood pressure medicine her Protonix. Patient has an appointment with Dr. Abernathy but not for another 3 weeks. Review of Systems General: Reports: 10 or more systems reviewed and unremarkable except in HPI and below PFSH ED PFSH: Medical History Abnormal uterine bleeding (AUB) Aftercare following surgery of the genitourinary system Gastritis Hiatal hernia History of gastritis History of peptic ulcer disease Hypertension Iron deficiency anemia Nephrolithiasis Surgical History History of abdominal surgery Multiple ventral hernia repairs with mesh Hx of cholecystectomy Tubal ligation status Family History Father Dementia Diabetes Hyperlipidemia Hypertension Stroke Mother Dementia Diabetes Hyperlipidemia Hypertension Thyroid condition Family/Other Breast cancer maternal aunts x3, age onset 74,25 and 50 Uterine cancer maternal aunt age 25 Ovarian cancer maternal aunt at age 25 Denies family history of Colon cancer Clotting disorder Heart disease Anesthesia complication Bleeding disorder Social History Smoking and tobacco status: never smoked Alcohol intake: never Substance/Drug Use: never Housing: House Female Reproductive History: Spontaneous abortions: No Physical Exam Const: COMMON NORMALS: no acute distress, average body habitus, patient oriented x3, no limitations, healthy appearing, alert and well nourished HENMT: COMMON NORMALS: normocephalic, atraumatic, hearing grossly normal bilaterally, external ears normal, Normal external nose present and moist oral mucous membranes HEAD & SCALP: normocephalic and atraumatic NOSE: Normal external nose present EXTERNAL EAR: Yes external ears normal Eye: COMMON NORMALS: Equal, round and reactive pupils present, EOMs intact bilaterally, conjunctivae normal and no scleral icterus CONJUNCTIVA: Yes conjunctivae normal PUPIL: Yes Equal, round and reactive pupils present Neck/C-Spine: COMMON NORMALS: no JVD Chest: COMMONS NORMALS: normal inspection of the chest and normal palpation of entire chest wall Resp: COMMON NORMALS: normal respiratory effort, No retractions, No use of accessory muscles and clear to auscultation bilaterally AUSCULTATION: clear to auscultation bilaterally Cardio: COMMON NORMALS: no JVD, regular rate, regular rhythm, S1 normal heart sound present, S2 normal heart sound present, No gallops present (Cardio), No clicks present (Cardio), No murmurs present (Cardio) and No rub (Cardio) RATE: regular rate RHYTHM: regular rhythm HEART SOUNDS: S1 normal heart sound present and S2 normal heart sound present GI: COMMON NORMALS: Normal to inspection, nondistended, normoactive bowel sounds present, Soft to palpation, non-tender, No hepatosplenomegaly present and no masses PALPATION: Yes Soft to palpation and Yes No hepatosplenomegaly present Extremity: NARRATIVE EXTREMITY EXAM: Angela posterior thigh on the right leg. Red swollen tender to palpate consistent with cellulitis. Neuro: COMMON NORMALS: patient oriented x3 SENSORIUM/ORIENTATION: Yes alert Course Vital Signs: Vital signs: Vital Signs Temperature 97.9 F 04/07/23 20:30 Pulse Rate 102 H 04/07/23 20:30 Respiratory Rate 16 04/07/23 20:30 Blood Pressure 153/102 04/07/23 20:30 Pulse Oximetry 96 04/07/23 20:30 MDM - General Adult Medical Decision Making Patient was bit by a spider approximately 3 days ago and is failed outpatient treatment with Benadryl as this usually works for her. Patient is also out of her blood pressure medicine and her Protonix. Patient will be given losartan and Keflex here in ER for her nighttime dose. Patient be discharged home with prescriptions for Keflex losartan and Protonix to get her by until she sees Dr. Abernathy in 3 weeks. Differential Diagnosis Spider bite, cellulitis Medical Records I reviewed the patient's medical records. Lab Data I reviewed the patient's lab results. Discharge Plan Discharge Patient Disposition: Home Clinical Impression: Cellulitis of right thigh Hypertension Qualifiers: Hypertension type: primary hypertension Qualified Code(s): I10 - Essential (primary) hypertension Gastritis Qualifiers: Gastritis type: unspecified gastritis Chronicity: chronic Gastritis bleeding: presence of bleeding unspecified Qualified Code(s): K29.50 - Unspecified chronic gastritis without bleeding Condition: Stable Prescriptions: New cephalexin 500 mg capsule 500 mg PO Q6H 7 Days Qty: 28 0RF losartan 100 mg tablet 100 mg PO DAILY Qty: 30 0RF pantoprazole [Protonix] 40 mg tablet,delayed release (DR/EC) 40 mg PO DAILY Qty: 30 0RF No Action ascorbic acid (vitamin C) 500 mg tablet 500 mg PO DAILY sucralfate [Carafate] 1 gram tablet 1 g PO Q6H 28 Days Qty: 112 3RF pantoprazole 40 mg tablet,delayed release (DR/EC) See Rx Instructions .ROUTE .COMPLEX Qty: 60 3RF Dose Instruction: Take 1 tablet by mouth twice daily Rx Instructions: Take 1 tablet by mouth twice daily losartan 100 mg tablet 100 mg PO DAILY Qty: 30 2RF acetaminophen 500 mg Tablet 1,000 mg PO Q4H PRN (Reason: Pain) fluticasone propionate 50 mcg/actuation spray,suspension 2 spray intranasal DAILY PRN (Reason: Allergy Symptoms) + Iron 1 mg Tablet 1 tab PO DAILY albuterol sulfate 90 mcg/actuation HFA aerosol inhaler 2 inh inhalation Q4H PRN (Reason: shortness of breath or wheezing) Qty: 8.5 2RF (DME) Aerochamber MV Spacer See Rx Instructions .Route Qty: 10 0RF Rx Instructions: As directed Discharge Orders: Discharge ED (Routine); Ordered 04/07/23 Ordered By: Ion Mane Referrals: Castillo Copeland DO [Primary Care Provider] - 1 week Patient Instructions: Cellulitis (ED) Activity Restrictions/Additional Instructions: Please take all your medicine as directed. Please follow-up with Dr. Abernathy at your neck scheduled appointment in approximately 3 weeks. If you have any complications please feel free to return to the ER for further evaluation and treatment. Coding Level of Care Code ED Telecommunications Switch Technician for Ovidio Estrada
[2023-04-07] MEDS: cephALEXin 500 mg Capsule PO (21:45)
[2023-04-07 21:46] VITALS: BP 138/107
[2023-04-07] MEDS: losartan 50 mg Tablet 100 MG PO (21:46)
[2023-04-07 21:47] VITALS: BP 138/107; PULSE 97; RESP 18; O2SAT 95
== END 2023-04-07 21:54 | disposition home or self-care (01) ==
PROVIDERS: Emergency Provider Emergency Medicine; PCP Family Medicine
DX: L03.115 Cellulitis of right lower limb (principal); I10 Essential (primary) hypertension; K29.50 Unspecified chronic gastritis without bleeding
CPT/HCPCS: 99283

== ENCOUNTER → 2023-06-12 14:47 | Outpatient (BNVA) | payer BC, MEDICAID, SELFPAY | PROVIDERS: PCP Family Medicine; Visit Provider Family Medicine | DX: I10 Essential (primary) hypertension (principal); K21.00 Gastro-esophageal reflux disease with esophagitis, without bleeding; D64.9 Anemia, unspecified | CPT/HCPCS: 80053; 80061; 83036; 84443; 85025 ==

== ENCOUNTER 2024-12-04 10:07 | Emergency (ER) | payer OTHER, SELFPAY ==
--- NOTE | 2024-12-04 10:13 | ED_ITS ---
HPI - General Adult 2 General: Chief complaint: Nausea/Vomiting/Diarrhea Stated complaint: N/V Time Seen by Provider: 12/04/24 10:08 History of Present Illness: 44-year-old female presents emergency ro om with complaint of nausea and vomiting. Patient reporting having coffee-ground emesis. She has had chronic anemia issues who was hospitalized here in June 2021 at that time she had a pyloric ulcer without any active bleeding she presented with a hemoglobin of 4 7 she was transfused up she has been found to have iron deficiency and has been followed since then. She is also reporting some recent dark tarry stools. Associated symptoms: Deny chest pain, dyspnea or rash Related Data Home Medications ?Medication ?Instructions ?Recorded ?Confirmed acetaminophen 500 mg tablet 1,000 mg PO Q4H PRN Pain 1 08/09/20 12/04/24 fluticasone propionate 50 2 spray intranasal DAILY PRN 06/09/21 12/04/24 mcg/actuation nasal Allergy Symptoms spray,suspension aspirin 325 mg tablet (Donovan 650 mg PO Q4H pain 12/04/24 Aspirin) vits,calcium 21-iron fum 1 tab PO DAILY 12/0412/04/24 14 mg iron-folic acid 400 mcg tablet ( Complete) Previous Rx's ?Medication ?Instructions ?Recorded pantoprazole 40 mg tablet,delayed See Rx Instructions .Route 11/09/23 release .COMPLEX #60 tabs albuterol sulfate 90 mcg/actuation See Rx Instructions .Route 04/18/24 aerosol inhaler .COMPLEX #9 grams Allergies Allergy/AdvReac Type Severity Reaction Status Date / Time Sulfa (Sulfonamide Allergy ALGY-Anaphy Verified 05/11/22 08:04 Antibiotics) laxis Review of Systems 2 Const: Denies: fever(s) or chills Card: Denies: chest pain Resp: Denies: dyspnea GI: Denies: abdominal pain : Denies: dysuria, urinary frequency or urinary urgency Musc: Denies: neck pain or back pain Skin/Breast: Denies: rash PFSH ED 2 PFSH: Medical History Abnormal uterine bleeding (AUB) Aftercare following surgery of the genitourinary system Nephrolithiasis History of peptic ulcer disease History of gastritis Hiatal hernia Hypertension Gastritis Iron deficiency anemia Surgical History History of abdominal surgery Multiple ventral hernia repairs with mesh Tubal ligation status Hx of cholecystectomy Family History Father Dementia Diabetes Hyperlipidemia Hypertension Stroke Mother Dementia Diabetes Hyperlipidemia Hypertension Thyroid disease Family/Other Breast cancer maternal aunts x3, age onset 74,25 and 50 Uterine cancer maternal aunt age 25 Ovarian cancer maternal aunt at age 25 Denies family history of Colon cancer Clotting disorder Heart disease Anesthesia complication Bleeding disorder Social History Smoking and tobacco/nicotine status: never used tobacco/nicotine Alcohol intake: never Substance/Drug Use: never Housing: House Female Reproductive History: Spontaneous abortions: No Physical Exam 2 Const: GENERAL APPEARANCE: cooperative ORIENTATION/CONSCIOUSNESS: Yes awake, Yes oriented to person, Yes oriented to place and Yes oriented to time HENMT: COMMON NORMALS: normocephalic, atraumatic and hearing grossly normal bilaterally HEAD & SCALP: normocephalic and atraumatic Resp: COMMON NORMALS: normal respiratory effort, No retractions, No use of accessory muscles and clear to auscultation bilaterally AUSCULTATION: clear to auscultation bilaterally Cardio: COMMON NORMALS: regular rate, regular rhythm and No murmurs present (Cardio) RATE: regular rate RHYTHM: regular rhythm GI: COMMON NORMALS: No hepatosplenomegaly present AUSCULTATION: Yes normoactive bowel sounds PALPATION: Yes Tenderness to palpation present (GI) (Mild epigastric), No Guarding due to palpation present (GI) and Yes No hepatosplenomegaly present Extremity: COMMON NORMALS: normal to inspection, capillary refill normal, no clubbing, cyanosis or edema, no calf tenderness and no pedal edema Neuro: SENSORIUM/ORIENTATION: Yes oriented to person, Yes oriented to place and Yes oriented to time Skin: COMMON NORMALS: no rashes or lesions noted GENERAL SKIN EXAM: no rashes or lesions noted Course 2 Vital Signs: Vital signs: Vital Signs Temperature 98.1 F 12/04/24 10:22 Pulse Rate 91 12/04/24 13:03 Respiratory Rate 18 12/04/24 10:22 Blood Pressure 141/57 12/04/24 13:03 Pulse Oximetry 94 12/04/24 13:03 Oxygen Delivery Me thod Room Air 12/04/24 10:22 MDM - General Adult Medical Decision Making PT was admitted with upper GI bleed. Discussed with hospitalist and surgeon. Orders written for the floor. Pt declines and now wants to leave AMA. Medical Records I reviewed the patient's medical records. Lab Data I reviewed the patient's lab results. 12/04/24 09:44 12/04/24 09:44 Radiology Impressions Abdomen/Pelvis CT 12/04/24 10:20 IMPRESSION: 1. No acute abdominal or pelvic abnormalities. 2. Prior cholecystectomy and hysterectomy. 3. Low normal size LEFT kidney with a cortical cyst. No obstruction. 4. Normal appendix. 5. No GI tract obstruction. 6. Large portion of the stomach is intrathoracic. No outlet obstruction. 7. Post surgical changes in the abdominal wall from prior hernia repair. Laboratory Results WBC 11.51 10^3/uL (3.29-11.43) H 12/04/24 09:44 RBC 4.34 10^6/uL (3.85-5.65) 12/04/24 09:44 Hgb 9.40 g/dL (11.27-16.99) L 12/04/24 09:44 Hct 31.8 % (36-47) L 12/04/24 09:44 MCV 73.3 fl (85-98) L 12/04/24 09:44 MCH 21.7 pg (27-33) L 12/04/24 09:44 MCHC 29.6 g/dL (30-55) L 12/04/24 09:44 RDW 18.4 % (12.1-15.1) H 12/04/24 09:44 Plt Count 321 10^3/cmm (157-399) 12/04/24 09:44 MPV 10.7 fL (7.4-10.4) H 12/04/24 09:44 Neut % (Auto) 69.4 % 12/04/24 09:44 Lymph % (Auto) 20.3 % 12/04/24 09:44 [place] % (Auto) 7.0 % 12/04/24 09:44 Eos % (Auto) 2.2 % 12/04/24 09:44 Baso % (Auto) 0.5 % 12/04/24 09:44 Neut # (Auto) 7.99 10^3/uL (1.8-7.7) H 12/04/24 09:44 Lymph # (Auto) 2.3 10^3/uL (0.8-4.8) 12/04/24 09:44 [place] # (Auto) 0.8 10^3/uL (0.2-0.9) 12/04/24 09:44 Eos # (Auto) 0.3 10^3/uL (0.0-0.8) 12/04/24 09:44 Baso # (Auto) 0.1 10^3/uL (0.0-0.1) 12/04/24 09:44 Nucleated RBC % (auto) 0 % 12/04/24 09:44 Nucleated RBCs # 0.0 /100WBC 12/04/24 09:44 Sodium 136 mmol/L (136-145) 12/04/24 09:44 Potassium 5.3 mmol/L (3.5-5.1) H 12/04/24 09:44 Chloride 104 mmol/L (98-107) 12/04/24 09:44 Carbon Dioxide 22 mmol/L (22-29) 12/04/24 09:44 Anion Gap 15.3 (5-19) 12/04/24 09:44 BUN 43 mg/dL (6-20) H 12/04/24 09:44 Creatinine 0.7 mg/dL (0.5-0.9) 12/04/24 09:44 GFR Calculation 90.5 mL/min (90-130) 12/04/24 09:44 Glucose 164 mg/dL (65-115) H 12/04/24 09:44 Calculated Osmolality 296 mOsm/kg (285-295) H 12/04/24 09:44 Calcium 8.1 mg/dL (8.5-10.5) L 12/04/24 09:44 Total Bilirubin 0.2 mg/dL (0.15-1.2) 12/04/24 09:44 AST 23 U/L (0-32) 12/04/24 09:44 ALT 10 U/L (0-33) 12/04/24 09:44 Alkaline Phosphatase 79 U/L (35-105) 12/04/24 09:44 Total Protein 6.7 g/dL (6.6-8.7) 12/04/24 09:44 Albumin 3.6 g/dL (3.5-5.2) 12/04/24 09:44 Globulin 3.1 g/dL (1.3-4.6) 12/04/24 09:44 Lipase 25 U/L (13-60) 12/04/24 09:44 Urine Color Yellow (Yellow) 12/04/24 11:10 Urine Appearance Clear (CLEAR) 12/04/24 11:10 Urine pH 5.5 (5-7) 12/04/24 11:10 Ur Specific [place] 1.022 (1.005-1.030) 12/04/24 11:10 Urine Protein Negative (Negative) 12/04/24 11:10 Urine Glucose (UA) Negative (Normal) 12/04/24 11:10 Urine Ketones Negative (Negative) 12/04/24 11:10 Urine Blood Negative (Negative) 12/04/24 11:10 Urine Nitrate Negative (Negative) 12/04/24 11:10 Urine Bilirubin Negative (Negative) 12/04/24 11:10 Urine Urobilinogen 0.2 mg/dL (Negative) 12/04/24 11:10 Ur Leukocyte Esterase Negative (Negative) 12/04/24 11:10 Urine RBC 0-2 /hpf (0-2) 12/04/24 11:10 Urine WBC 0-5 /hpf (0-5) 12/04/24 11:10 Ur Squamous Epith Cells 0-5 /hpf (0-5) 12/04/24 11:10 Amorphous Sediment Not Reportable 12/04/24 11:10 Urine Bacteria None seen /hpf (NONE) 12/04/24 11:10 Hyaline Casts 0.81 /lpf 12/04/24 11:10 Blood Type O Positive 12/04/24 10:27 Rho(D) Type Rh positive 12/04/24 10:27 Antibody Screen Negative 12/04/24 10:27 All radiology interpretation(s) finalized by discharge Discharge Plan Discharge Patient Disposition: Left Against Medical Advice Clinical Impression: Acute upper GI bleed, Anemia, History of peptic ulcer disease Condition: Stable Prescriptions: No Action pantoprazole 40 mg tablet,delayed release (DR/EC) See Rx Instructions .ROUTE .COMPLEX Qty: 60 2RF Dose Instruction: Take 1 tablet by mouth twice daily Rx Instructions: Take 1 tablet by mouth twice daily albuterol sulfate 90 mcg/actuation HFA aerosol inhaler See Rx Instructions .ROUTE .COMPLEX Qty: 9 0RF Dose Instruction: INHALE 2 PUFFS BY MOUTH EVERY 4 HOURS NEEDED FOR SHORTNESS OF BREATH OR WHEEZING Rx Instructions: INHALE 2 PUFFS BY MOUTH EVERY 4 HOURS NEEDED FOR SHORTNESS OF BREATH OR WHEEZING acetaminophen 500 mg Tablet 1,000 mg PO Q4H PRN (Reason: Pain) fluticasone propionate 50 mcg/actuation spray,suspension 2 spray intranasal DAILY PRN (Reason: Allergy Symptoms) aspirin [Donovan Aspirin] 325 mg Tablet 650 mg PO Q4H Rx Instructions: while awake Complete 14 mg iron- 400 mcg Tablet 1 tab PO DAILY Referrals: Castillo Copeland DO [Physician, Family Practice] Discharge Activity: Increase activity as tolerated Print Language: Croatian Coding Level of Care Code ED Machine Tool Designer for Ovidio Estrada
--- NOTE | 2024-12-04 10:20 | CT_ITS ---
WS: [id number] CT ABDOMEN AND PELVIS WITH CONTRAST HISTORY: abd pain, left-sided abdominal pain with nausea and vomiting for 4 days. TECHNIQUE: Imaging performed of the abdomen and pelvis with IV contrast. Single phase imaging of the abdomen. Coronal and sagittal reformats are submitted. All CT scans at [facility] use at least one of these dose optimization techniques: automated exposure control; mA and/or kV adjustment per patient size (includes targeted exams where dose is matched to clinical indication); or iterative reconstruction. IV CONTRAST: Omnipaque 350; 100 mL IV. Oral contrast: No DLP: 1054.44 mGy.cm COMPARISON: None available. Lower thorax: Lung bases are clear. Heart is normal size. Large hiatal hernia. Stomach is nearly completely intrathoracic. No outlet obstruction. Liver/biliary system: Normal size with no intrahepatic dilatation. Gallbladder: Status post cholecystectomy. Pancreas: Normal size pancreas and pancreatic duct. No adjacent inflammation. Spleen: Normal size spleen. No mass or infarct. Adrenal glands: Mild hyperplasia and thickening of the RIGHT adrenal gland is stable. There is also an additional RIGHT adrenal nodule measuring 1.9 cm which is increased in size since 2020 and probably representing an adenoma. Right kidney: Normal. Left kidney: Normal size but slightly smaller than the RIGHT. There is no obstruction. Cortical cyst 5 mm upper pole. No ureteral obstruction or stone. Aorta: Normal. Lymphadenopathy: There are few small upper abdomen lymph nodes which are subcentimeter. Free fluid: None. GI tract: No small bowel obstruction. No colitis. Normal appendix. Abdominal wall: Postsurgical changes along the ventral abdominal wall. There is very minimal stranding within the subcutaneous fat at the level of the umbilicus which is similar to the prior study. Pelvis: Prior hysterectomy. Small corpus luteal cyst LEFT ovary. Bones: Unremarkable. CT/CT abdomen pelvis w con* [id number] IMPRESSION: 1. No acute abdominal or pelvic abnormalities. 2. Prior cholecystectomy and hysterectomy. 3. Low normal size LEFT kidney with a cortical cyst. No obstruction. 4. Normal appendix. 5. No GI tract obstruction. 6. Large portion of the stomach is intrathoracic. No outlet obstruction. 7. Post surgical changes in the abdominal wall from prior hernia repair.
[2024-12-04 10:22] VITALS: BP 120/84; PULSE 103; RESP 18; TEMP 36.7; O2SAT 100; BMI 42.6
[2024-12-04] MEDS: sodium chloride 0.9% 1,000 ML 999 ML IV (10:28)
[2024-12-04] MEDS: pantoprazole 40 mg SDV 80 MG IVP (10:28)
[2024-12-04 10:35] LABS: Basophils # 0.1 10^3/uL (0.0-0.1); Basophils % 0.5 %; Eosinophils # 0.3 10^3/uL (0.0-0.8); Eosinophils % 2.2 %; Hematocrit 31.8 % (36-47); Lymphocytes # 2.3 10^3/uL (0.8-4.8); Lymphocytes % 20.3 %; Mean Corpuscular HGB Conc 29.6 g/dL (30-55); Mean Corpuscular Hemoglobin 21.7 pg (27-33); Mean Corpuscular Volume 73.3 fl (85-98); Mean Platelet Volume 10.7 fL (7.4-10.4); Monocytes # 0.8 10^3/uL (0.2-0.9); Neutrophils # 7.99 10^3/uL (1.8-7.7); Neutrophils % 69.4 %; Nucleated Red Blood Cells % 0 %; Platelet Count 321 10^3/cmm (157-399); Red Blood Count 4.34 10^6/uL (3.85-5.65); Red Cell Distribution Width 18.4 % (12.1-15.1); White Blood Count 11.51 10^3/uL (3.29-11.43)
[2024-12-04 10:53] LABS: Albumin Level 3.6 g/dL (3.5-5.2); Alkaline Phosphatase 79 U/L (35-105); Blood Urea Nitrogen 43 mg/dL (6-20); Calcium 8.1 mg/dL (8.5-10.5); Carbon Dioxide 22 mmol/L (22-29); Chloride 104 mmol/L (98-107); Creatinine Clr Calc Pharmacy 153.3417; Globulin 3.1 g/dL (1.3-4.6); Glomerular Filtration Rate 90.5 mL/min (90-130); Glucose 164 mg/dL (65-115); Lipase 25 U/L (13-60); Osmolality Calculated 296 mOsm/kg (285-295); Sodium 136 mmol/L (136-145); Total Bilirubin 0.2 mg/dL (0.15-1.2); Total Protein 6.7 g/dL (6.6-8.7)
[2024-12-04 11:01] LABS: Anion Gap 15.3 (5-19); Potassium 5.3 mmol/L (3.5-5.1)
[2024-12-04 11:02] LABS: Alanine Aminotransferase 10 U/L (0-33); Aspartate Amino Transferase 23 U/L (0-32)
[2024-12-04] MEDS: iohexol 350 mg/mL 500 mL Btl (per mL) IV (11:10)
[2024-12-04 11:23] LABS: Bilirubin Urine Negative (Negative); Blood Urine Negative (Negative); Glucose Urine UA Negative (Normal); Ketones Urine Negative (Negative); Leukocyte Esterase Urine Negative (Negative); Nitrate Urine Negative (Negative); Protein Urine Negative (Negative); Specific Gravity, Urine 1.022 (1.005-1.030); Urine Appearance Clear (CLEAR); Urine Color Yellow (Yellow); Urobilinogen Urine 0.2 mg/dL (Negative); pH Urine 5.5 (5-7)
[2024-12-04 11:28] LABS: Add Urine Microscopic? YES; Bacteria Urine None Seen /hpf; Hyaline Casts Urine 0.81 /lpf; RBC Urine 0-2 /hpf (0-2); Squamous Epithelial Cell Urine 0-5 /hpf (0-5); WBC Urine 0-5 /hpf (0-5)
[2024-12-04 11:42] LABS: Add Urine Culture? No
[2024-12-04 13:03] VITALS: BP 141/57; PULSE 91; O2SAT 94
== END 2024-12-04 13:38 | disposition left against medical advice (07) ==
PROVIDERS: Emergency Provider Family Medicine
DX: K92.2 Gastrointestinal hemorrhage, unspecified (principal); D64.9 Anemia, unspecified; Z87.11 Personal history of peptic ulcer disease; Z79.82 Long term (current) use of aspirin; I10 Essential (primary) hypertension
CPT/HCPCS: 36415; 74177; 80053; 81001; 83690; 85025; 86850; 86900; 96374; 99285; J2470; J7030